=== PATIENT | male | born 2000 | race African-American/Black ===

== ENCOUNTER 2024-01-17 20:55 | Inpatient (IN) ==
[2024-01-17 23:07] LABS: Basophils # (auto) 0.02 K/uL (0.00-0.20); Basophils % (auto) 0.2 %; Eosinophils # (auto) 0.01 K/uL (0.00-0.50); Eosinophils % (auto) 0.1 %; Hematocrit (blood only) 23.1 % (42.0-52.0); Hemoglobin 7.7 g/dl (14.0-18.0); Immature Granulocytes # (auto) 0.13 K/uL (0.01-0.20); Immature Granulocytes % (auto) 1.2 %; Lymphocytes % (auto) 16.9 %; Mean Corpuscular Hemoglobin 22.8 pg (25.0-34.0); Mean Corpuscular Hgb Conc 33.3 g/dL (32.0-36.0); Mean Corpuscular Volume 68.3 fL (80.0-100.0); Monocytes # (auto) 0.55 K/uL (0.11-0.59); Monocytes % (auto) 5.2 %; Neutrophils # (auto) 8.14 K/uL (1.40-6.50); Neutrophils % (auto) 76.4 %; Nucleated RBC # (auto) 0.18 K/uL (0.00-0.12); Nucleated RBC % (auto) 1.7 %; RDW Coefficient of Variation 22.1 % (11.5-14.5); Red Blood Count 3.38 M/uL (4.70-6.10); White Blood Count 10.65 K/ul (4.8-10.8)
[2024-01-17 23:11] LABS: Platelet Count 475 K/uL (130-400)
[2024-01-17] MEDS ORDERED: ONDANSETRON INJ 2 MG/ML 2 ML VIAL IV STA (23:11)
[2024-01-17] MEDS ORDERED: HYDROmorphone INJ 0.5 MG/0.5 ML SYR IV STA (23:11)
[2024-01-17 23:24] LABS: Albumin Level 4.3 gm/dl (3.4-5.0); BUN Creatinine Ratio 21.6 (10-20); Bilirubin,Total 1.1 mg/dl (0.2-1.0); Calcium 9.5 mg/dl (8.6-10.3); Creatinine Clr Calc Pharmacy 122.8 ml/min; Est GFR (African American) 149.6 ml/min; Est GFR (Non-African American) 129.1 ml/min; Globulin 4.2 gm/dl (2.5-4.0); Potassium 3.7 mmol/L (3.5-5.1); Total Protein 8.5 gm/dl (6.0-8.3)
[2024-01-17] MEDS: ONDANSETRON INJ 2 MG/ML 2 ML VIAL IV SCH (23:30)
[2024-01-17] MEDS: HYDROmorphone INJ 0.5 MG/0.5 ML SYR IV SCH (23:30)
[2024-01-17 23:32] LABS: Anisocytosis Present; Microcytosis Present; Polychromasia 2+; Target Cells 2+
--- NOTE | 2024-01-17 23:32 | Emergency Department Note ---
History of Present Illness General Chief complaint: Leg Injury/Pain Stated complaint: SICKLE CELL CRISIS, NEEDS PAIN MEDS, LT LEG PAIN Time Seen by Provider: 01/17/24 23:12 History of Present Illness Maximum Pain Intensity: 10 This is a 23-year-old male presenting to the emergency department for evaluation of bilateral leg pain worse in the left leg. Patient reports that he has a history of sickle cell disease and feels that he is in sickle cell crisis. He typically follows with [facility] heme-onc and does have oxycodone to use at home when he enters crisis. Patient took 2 doses of his oxycodone, the first 1 this morning, and the last one around 3 PM. Despite the medication he still rates the pain a 10/10. He is not having any fevers or chills. No chest pain, chest tightness, shortness of breath. Patient does have treatment plan documentation from [facility] for fluids and every hour 1 mg Dilaudid. This feels similar to his previous sickle cell events. Home Medications Medication Instructions Recorded Confirmed Type acetaminophen 500 mg tablet 1,000 mg PO Q8H PRN Pain, Mild 01/18/24 01/18/24 History folic acid 1 mg tablet 1 mg PO DAILY 01/18/24 01/18/24 History hydroxyurea 500 mg capsule 500 mg PO UD 01/18/24 01/18/24 History ibuprofen 400 mg tablet 800 mg PO Q8H PRN Pain, Mild 01/18/24 01/18/24 History oxycodone 10 mg tablet 20 mg PO Q4H PRN Pain, Moderate 01/18/24 01/18/24 History Allergies Allergy/AdvReac Type Severity Reaction Status Date / Time fentanyl Allergy Intermediate Numbness Verified 01/18/24 04:45 Past Med/Surg History Medical History Sickle cell disease Surgical History No significant past surgical history Family History (Updated 01/18/24 @ 04:49 by Denita Villanueva DO) Other Sickle cell trait Social History (Updated 01/18/24 @ 04:49 by Denita Villanueva DO) Smoking Status: Never smoker Hx Alcohol Use: No Hx Substance Use: No Preferred Language: Estonian Feels Safe at Home: Yes Review of Systems A total of 10 systems reviewed and were otherwise negative Physical Exam Vital Signs Vital Signs - 24 hr 01/17/24 21:01 01/17/24 23:11 01/17/24 23:22 Temperature 36.6 C Temperature Source Temporal Artery Scan Pulse Rate 84 81 Pulse Rate [Apical] 84 Pulse Rhythm Regular Pulse Rhythm [Apical] Regular Pulse Strength Normal Pulse Strength [Apical] Normal Respiratory Rate 19 18 Respiratory Effort / Characteristics Non-Labored Spontaneous Non-Labored Spontaneous Respiratory Depth Normal Normal Respiratory Pattern Regular Regular Blood Pressure 109/71 Blood Pressure [Right Arm] 127/78 Blood Pressure Mean 83 Blood Pressure Mean [Right Arm] 94 Blood Pressure Position Sitting Blood Pressure Position [Right Arm] Lying Pulse Oximetry 100 100 Pulse Oximetry [Right Index Finger] Oxygen Delivery Method Room Air Room Air Oxygen Delivery Method [Right Index Finger] Sepsis Recent Fever Within 48 Hours No Sepsis New/Unexplained Change in Mental Status N/A Sepsis Action Taken by Nursing No Action Required 01/18/24 03:00 01/18/24 03:07 01/18/24 04:00 Temperature Temperature Source Pulse Rate 78 Pulse Rate [Apical] 78 73 Pulse Rhythm Pulse Rhythm [Apical] Regular Regular Pulse Strength Pulse Strength [Apical] Normal Normal Respiratory Rate 18 18 Respiratory Effort / Characteristics Non-Labored Spontaneous Non-Labored Spontaneous Respiratory Depth Normal Normal Respiratory Pattern Regular Regular Blood Pressure Blood Pressure [Right Arm] 134/75 134/79 Blood Pressure Mean Blood Pressure Mean [Right Arm] 94 97 Blood Pressure Position Blood Pressure Position [Right Arm] Lying Lying Pulse Oximetry 99 98 Pulse Oximetry [Right Index Finger] Oxygen Delivery Method Room Air Room Air Oxygen Delivery Method [Right Index Finger] Sepsis Recent Fever Within 48 Hours Sepsis New/Unexplained Change in Mental Status Sepsis Action Taken by Nursing 01/18/24 04:00 Temperature Temperature Source Pulse Rate Pulse Rate [Apical] Pulse Rhythm Pulse Rhythm [Apical] Pulse Strength Pulse Strength [Apical] Respiratory Rate Respiratory Effort / Characteristics Respiratory Depth Respiratory Pattern Blood Pressure Blood Pressure [Right Arm] Blood Pressure Mean Blood Pressure Mean [Right Arm] Blood Pressure Position Blood Pressure Position [Right Arm] Pulse Oximetry Pulse Oximetry [Right Index Finger] 98 Oxygen Delivery Method Oxygen Delivery Method [Right Index Finger] Room Air Sepsis Recent Fever Within 48 Hours Sepsis New/Unexplained Change in Mental Status Sepsis Action Taken by Nursing VITALS: Vitals are noted on the nurse's note and reviewed by myself. Vital signs stable. GENERAL: Well-developed, well-nourished, black male, who is in moderate discomfort but overall cooperative. HEAD: Normocephalic atraumatic. EARS: External ear normal. External auditory canals clear, tympanic membranes pearly dawn without erythema or effusion bilaterally. EYES: Pupils equal round and reactive to light and accommodation. Conjunctivae without injection, sclerae without icterus. Extraocular movements intact. NOSE: Patent, turbinates without inflammation or discharge. MOUTH: Mucous membranes moist. Tonsils are not enlarged. Pharynx without erythema, blood, or exudate. Uvula midline. Airway patent. NECK: Supple without nuchal rigidity. No lymphadenopathy. No thyromegaly. Cervical spine is nontender. HEART: Regular rate and rhythm without murmurs gallops or rubs. LUNGS: Clear to auscultation bilaterally without wheezes, rales or rhonchi. No retractions or accessory muscle use. ABDOMEN: Positive normal bowel sounds x 4. Soft, nontender, without masses or organomegaly. No guarding or rebound tenderness. MUSCULOSKELETAL: No muscle atrophy, erythema, or edema noted. Full range of motion in all extremities. Course Administered Medications Discontinued Medications Hydromorphone HCl (Hydromorphone Inj 0.5 Mg/0.5 Ml Syr) 0.5 mg IV NOW STA Stop: 01/17/24 23:19 Last Admin: 01/18/24 00:48 Dose: 0.5 mg Documented By: MATEUSZ Hydromorphone HCl (Hydromorphone Inj 1 Mg/Ml Syringe) 1 mg IV NOW Stop: 01/18/24 01:26 Last Admin: 01/18/24 01:50 Dose: 1 mg Documented By: IDD Hydromorphone HCl (Hydromorphone Inj 0.5 Mg/0.5 Ml Syr) 0.5 mg IV 2311 [facility] Stop: 01/18/24 02:15 Last Admin: 01/17/24 23:30 Dose: 0.5 mg Documented By: IDD Hydromorphone HCl (Hydromorphone Inj 2 Mg/Ml Syr/Vial) Confirm Administered Dose 2 mg .ROUTE .STK-MED ONE Stop: 01/18/24 04:41 Last Admin: 01/18/24 04:43 Dose: Not Given Documented By: IDD Sodium Chloride (Nss) 1,000 mls @ 999 mls/hr IV .Q1H1M [facility] Stop: 01/18/24 00:15 Last Infusion: 01/18/24 01:20 Dose: Infused Documented By: Admin: 01/18/24 00:18 Dose: 999 mls/hr Documented By: MATEUSZ Miscellaneous Information (Patient's Allergy Info Needs Entered) 1 each N/A NOW ONE Stop: 01/18/24 02:16 Last Admin: 01/18/24 04:34 Dose: 1 each Documented By: IDD Ondansetron HCl (Ondansetron Inj 2 Mg/Ml 2 Ml Vial) 4 mg IV 2311 [facility] Stop: 01/18/24 02:15 Last Admin: 01/17/24 23:30 Dose: 4 mg Documented By: MATEUSZ Medical Decision Making Differential Diagnosis Differential diagnosis includes, but is not limited to: Sickle cell crisis, infection, dehydration, myocardial infarction, dysrhythmia, pericarditis, pneumothorax, aortic aneurysm/dissection, DVT/PE, anxiety, GERD, PUD, electrolyte imbalance, thyroid disorder, pneumonia, bronchitis, pancreatitis, and others Laboratory Data 01/17/24 22:45 01/17/24 22:45 Lab Results 01/17/24 Range/Units 22:45 WBC 10.65 (4.8-10.8) K/ul RBC 3.38 L (4.70-6.10) M/uL Hgb 7.7 L (14.0-18.0) g/dl Hct 23.1 L (42.0-52.0) % MCV 68.3 L (80.0-100.0) fL MCH 22.8 L (25.0-34.0) pg MCHC 33.3 (32.0-36.0) g/dL RDW Std Deviation 51.0 H (36.4-46.3) fL RDW Coeff of Luis Alfredo 22.1 H (11.5-14.5) % Plt Count 475 H (130-400) K/uL MPV 9.0 L (9.4-12.4) fL Immature Gran % (Auto) 1.2 % Neut % (Auto) 76.4 % Lymph % (Auto) 16.9 % [place] % (Auto) 5.2 % Eos % (Auto) 0.1 % Baso % (Auto) 0.2 % Reticulocyte % (Auto) 7.27 H (0.50-2.00) % Neut # (Auto) 8.14 H (1.40-6.50) K/uL Lymph # (Auto) 1.80 (1.20-3.40) K/uL [place] # (Auto) 0.55 (0.11-0.59) K/uL Eos # (Auto) 0.01 (0.00-0.50) K/uL Baso # (Auto) 0.02 (0.00-0.20) K/uL Reticulocyte # 0.250 H (0.020-0.100) 10^6/uL Immature Gran # (Auto) 0.13 (0.01-0.20) K/uL Absolute Nucleated RBC 0.18 H (0.00-0.12) K/uL Nucleated RBC % (auto) 1.7 % Polychromasia 2+ Anisocytosis Present Microcytosis Present Target Cells 2+ Sodium 134 L (136-145) mmol/L Potassium 3.7 (3.5-5.1) mmol/L Chloride 100 (98-107) mmol/L Carbon Dioxide 25 (21-32) mmol/L Anion Gap 9 (3-11) BUN 16 (6-23) mg/dl Creatinine 0.74 (0.6-1.4) mg/dl Est Cr Clr Drug Dosing 122.8 ml/min Est GFR ( Amer) 149.6 ml/min Est GFR (Non-Af Amer) 129.1 ml/min BUN/Creatinine Ratio 21.6 H (10-20) Glucose 105 H (70-99(Fasting)) mg/dl Calcium 9.5 (8.6-10.3) mg/dl Total Bilirubin 1.1 H (0.2-1.0) mg/dl AST 37 (13-39) U/L ALT 22 (7-52) U/L Alkaline Phosphatase 86 (34-104) U/L Troponin I High Sens 2.9 (0-20) pg/ml Total Protein 8.5 H (6.0-8.3) gm/dl Albumin 4.3 (3.4-5.0) gm/dl Globulin 4.2 H (2.5-4.0) gm/dl Albumin/Globulin Ratio 1.0 (0.9-2) MDM Narrative Physical exam and history were performed. Nursing notes, EMR, and Medication List were personally reviewed. No social concerns were identified as barriers to patients care. Patient appears to have concern for sickle cell crisis. Patient has had this in the past and follows with [place] [facility] oncology. IV access was established and labs were obtained. Patient was hydrated with normal saline and treated per his specialist recommendation. He was given 1 mg IV Dilaudid. Patient's blood work is as above and was reviewed. He is anemic with an elevated reticulocyte count. He does not seem to have ACS on EKG or by labs. Transaminases are not diagnostic. Patient required multiple doses of pain medication here in the ER. He has taken his home regiment of opioids as well without relief. Overall the patient does not appear well for discharge home. Patient was discussed with the on-call hospitalist team who agreed to evaluate him here in the ER. Please see their dictation for further patient course, plan, disposition. The chart was completed utilizing [employer] Voice Recognition Software. Grammatical errors, random word insertions, pronoun errors, and incomplete sentences are an occasional consequence of this system due to software limitations, ambient noise, and hardware issues. Any formal questions or concerns about the content, text, or information contained within the body of this dictation should be directly addressed to the provider for clarification. . Impression & Plan Sickle cell disease Discharge Plan Visit Data Chief Complaint: Leg Injury/Pain Stated Complaint: SICKLE CELL CRISIS, NEEDS PAIN MEDS, LT LEG PAIN ED Provider: Garry Vaz ED Midlevel Provider: Judd Wells Discharge Problem: Sickle cell disease Discharge Instructions Interventions: ED Discharge Assessment Last Done: 01/18/24 04:56
[2024-01-18] MEDS: SODIUM CHLORIDE 0.9% 1,000 ML IV SCH (00:18)
[2024-01-18] MEDS: HYDROmorphone INJ 0.5 MG/0.5 ML SYR IV STA (00:48)
[2024-01-18 01:03] LABS: Reticulocyte % 7.27 % (0.50-2.00); Reticulocytes # 0.25 10^6/uL (0.020-0.100)
[2024-01-18 01:29] LABS: Troponin I High Sensitivity 2.9 pg/ml (0-20)
[2024-01-18] MEDS: HYDROmorphone INJ 1 MG/ML SYRINGE IV STA (01:50)
[2024-01-18] MEDS ORDERED: Patient's ALLERGY Info needs ENTERED STA (04:30)
--- NOTE | 2024-01-18 04:31 | History & Physical Report ---
Date of Service January 18, 2024 Assessment & Plan (1) Sickle cell disease: Plan: 23yo male with sickle cell disease presenting with acute pain crisis. Patient with pain in the left thigh. No evidence of infection or acute chest syndrome. Patient with microcytic/hypochromic anemia with Hgb=7.7, Hct=23.1, MCV=68.3 and MCH=22.8 (no prior baseline values), elevated reticulocyte count to 7.27%. Patient has received very little pain relief with the therapies administered thus far (Dilaudid 0.5 + 0.5 + 1mg). -Admit to medical -Continue supplemental O2 for comfort - no hypoxia noted -1/2 NSS at 80mL/hr x 2L -Continue hydroxyurea at home dose - patient takes 100mg po on days 1 and 2 and 500mg po on day 3 then repeats the cycle -Continue Folic Acid -Pain control with Tylenol 1gm PO TID PRN mild pain -Oxycodone 20mg po q 4 hours as needed for moderate pain -Dilaudid 1mg IV q 2 hours as needed for mild pain (3, 4, 5) -Dilaudid 1.5mg IV q 2 hours as needed for severe pain (6-10) -Narcan available for oversedation or respiratory depression -Bowel regimen with Miralax and Colace PRN -Continuous pulse oximeter F/E/N - 1/2 NSS at 80mL/hr x 2L, electrolytes WNL, Regular diet as tolerated PPx - low risk for DVT Code - Full per discussion with patient Dispo - Admit to medical floor for ongoing pain management History of Present Illness Chief Complaint: sickle cell pain crisis Primary Care Provider: Willi Cortezan-paul is a pleasant 23yo male with history of sickle cell disease presenting with acute pain crisis. Patient's pain began suddenly in his left thigh at 15:00 on 01/17/24. He took Oxycodone 20mg and Tylenol 1gm at home prior to arrival with some improvement. However, his pain persisted therefore he came to the ER. Patient denies fever, chills, cough, chest pain or shortness of breath. No abdominal pain, nausea or vomiting. His current pain is typical for his sickle cell crises. Patient has had acute chest syndrome in the past, last time thought to be in 2021. In the ER he is afebrile, HD stable. ER Course: Dilaudid 0.5mg IV x 2doses + 1mg + 2mg NSS x 1L Zofran 4mg IV Allergies Allergy/AdvReac Type Severity Reaction Status Date / Time fentanyl Allergy Intermediate Numbness Verified 01/18/24 04:45 Home Medications Medication Instructions Recorded Confirmed Type acetaminophen 500 mg tablet 1,000 mg PO Q8H PRN Pain, Mild 01/18/24 01/18/24 History folic acid 1 mg tablet 1 mg PO DAILY 01/18/24 01/18/24 History hydroxyurea 500 mg capsule 500 mg PO UD 01/18/24 01/18/24 History ibuprofen 400 mg tablet 800 mg PO Q8H PRN Pain, Mild 01/18/24 01/18/24 History oxycodone 10 mg tablet 20 mg PO Q4H PRN Pain, Moderate 01/18/24 01/18/24 History Past Med/Surg History Medical History Sickle cell disease Surgical History No significant past surgical history Family History (Updated 01/18/24 @ 04:49 by Denita Villanueva DO) Other Sickle cell trait Social History (Updated 01/18/24 @ 04:49 by Denita Villanueva DO) Smoking Status: Never smoker Hx Alcohol Use: No Hx Substance Use: No Preferred Language: Serbian Feels Safe at Home: Yes Review of Systems Review of Systems: All systems reviewed & are unremarkable except as noted in HPI & below Physical Exam Physical Exam: General: patient in mild distress secondary to pain, non-toxic in appearance, AA&O x 4 Skin: warm, dry, intact, no rashes or lesions HEENT: NC/AT, PERRL, EOMI, anicteric sclera, conjunctiva without injection, external ear normal to inspection and nontender, nares patent, moist mucus membranes, dentition intact, no oropharyngeal lesions, neck supple, trachea midline, no LAD, no thyromegaly, no JVD Heart: +S1/S2, regular, no m/r/g Lungs: equal air entry bilaterally, no rales/rhonchi/wheezes Abd: +BS, soft, NT/ND, no masses/organomegaly/ascites Ext: warm, 2+ pulses in UE/LE bilaterally, no clubbing/cyanosis or edema Neuro: nonfocal, patient AA&O x 4, speech intact, no facial droop, moving all extremities on command with equal strength 5/5 Results & Data Results & Data Vital Signs (Past 12 Hours) Vital Signs Temp Pulse Pulse Resp BP BP Pulse Ox 01/18/24 03:07 78 01/18/24 03:00 78 18 134/75 99 01/17/24 23:22 84 18 127/78 100 01/17/24 23:11 81 01/17/24 21:01 36.6 C 84 19 109/71 100 O2 Del Method 01/18/24 03:07 01/18/24 03:00 Room Air 01/17/24 23:22 Room Air 01/17/24 23:11 01/17/24 21:01 Room Air Laboratory Results Laboratory Results WBC 10.65 K/ul (4.8-10.8) 01/17/24 22:45 RBC 3.38 M/uL (4.70-6.10) L 01/17/24 22:45 Hgb 7.7 g/dl (14.0-18.0) L 01/17/24 22:45 Hct 23.1 % (42.0-52.0) L 01/17/24 22:45 MCV 68.3 fL (80.0-100.0) L 01/17/24 22:45 MCH 22.8 pg (25.0-34.0) L 01/17/24 22:45 MCHC 33.3 g/dL (32.0-36.0) 01/17/24 22:45 RDW Std Deviation 51.0 fL (36.4-46.3) H 01/17/24 22:45 RDW Coeff of Luis Alfredo 22.1 % (11.5-14.5) H 01/17/24 22:45 Plt Count 475 K/uL (130-400) H 01/17/24 22:45 MPV 9.0 fL (9.4-12.4) L 01/17/24 22:45 Immature Gran % (Auto) 1.2 % 01/17/24 22:45 Neut % (Auto) 76.4 % 01/17/24 22:45 Lymph % (Auto) 16.9 % 01/17/24 22:45 [place] % (Auto) 5.2 % 01/17/24 22:45 Eos % (Auto) 0.1 % 01/17/24 22:45 Baso % (Auto) 0.2 % 01/17/24 22:45 Reticulocyte % (Auto) 7.27 % (0.50-2.00) H 01/17/24 22:45 Neut # (Auto) 8.14 K/uL (1.40-6.50) H 01/17/24 22:45 Lymph # (Auto) 1.80 K/uL (1.20-3.40) 01/17/24 22:45 [place] # (Auto) 0.55 K/uL (0.11-0.59) 01/17/24 22:45 Eos # (Auto) 0.01 K/uL (0.00-0.50) 01/17/24 22:45 Baso # (Auto) 0.02 K/uL (0.00-0.20) 01/17/24 22:45 Reticulocyte # 0.250 10^6/uL (0.020-0.100) H 01/17/24 22:45 Immature Gran # (Auto) 0.13 K/uL (0.01-0.20) 01/17/24 22:45 Absolute Nucleated RBC 0.18 K/uL (0.00-0.12) H 01/17/24 22:45 Nucleated RBC % (auto) 1.7 % 01/17/24 22:45 Polychromasia 2+ 01/17/24 22:45 Anisocytosis Present 01/17/24 22:45 Microcytosis Present 01/17/24 22:45 Target Cells 2+ 01/17/24 22:45 Sodium 134 mmol/L (136-145) L 01/17/24 22:45 Potassium 3.7 mmol/L (3.5-5.1) 01/17/24 22:45 Chloride 100 mmol/L (98-107) 01/17/24 22:45 Carbon Dioxide 25 mmol/L (21-32) 01/17/24 22:45 Anion Gap 9 (3-11) 01/17/24 22:45 BUN 16 mg/dl (6-23) 01/17/24 22:45 Creatinine 0.74 mg/dl (0.6-1.4) 01/17/24 22:45 Est Cr Clr Drug Dosing 122.8 ml/min 01/17/24 22:45 Est GFR ( Amer) 149.6 ml/min 01/17/24 22:45 Est GFR (Non-Af Amer) 129.1 ml/min 01/17/24 22:45 BUN/Creatinine Ratio 21.6 (10-20) H 01/17/24 22:45 Glucose 105 mg/dl (70-99(Fasting)) H 01/17/24 22:45 Calcium 9.5 mg/dl (8.6-10.3) 01/17/24 22:45 Total Bilirubin 1.1 mg/dl (0.2-1.0) H 01/17/24 22:45 AST 37 U/L (13-39) 01/17/24 22:45 ALT 22 U/L (7-52) 01/17/24 22:45 Alkaline Phosphatase 86 U/L (34-104) 01/17/24 22:45 Troponin I High Sens 2.9 pg/ml (0-20) 01/17/24 22:45 Total Protein 8.5 gm/dl (6.0-8.3) H 01/17/24 22:45 Albumin 4.3 gm/dl (3.4-5.0) 01/17/24 22:45 Globulin 4.2 gm/dl (2.5-4.0) H 01/17/24 22:45 Albumin/Globulin Ratio 1.0 (0.9-2) 01/17/24 22:45 Diagnostic Findings CXR - per my interpretation, normal cardiac shadow, no infiltrates, edema or pneumothorax Medications Administered Discontinued Medications Hydromorphone HCl (Hydromorphone Inj 0.5 Mg/0.5 Ml Syr) 0.5 mg IV NOW STA Stop: 01/17/24 23:19 Last Admin: 01/18/24 00:48 Dose: 0.5 mg Documented By: IDD Hydromorphone HCl (Hydromorphone Inj 1 Mg/Ml Syringe) 1 mg IV NOW STA Stop: 01/18/24 01:26 Last Admin: 01/18/24 01:50 Dose: 1 mg Documented By: IDD Hydromorphone HCl (Hydromorphone Inj 0.5 Mg/0.5 Ml Syr) 0.5 mg IV 2311 [facility] Stop: 01/18/24 02:15 Last Admin: 01/17/24 23:30 Dose: 0.5 mg Documented By: IDD Hydromorphone HCl (Hydromorphone Inj 2 Mg/Ml Syr/Vial) Confirm Administered Dose 2 mg .ROUTE .STK-MED ONE Stop: 01/18/24 04:41 Last Admin: 01/18/24 04:43 Dose: Not Given Documented By: IDD Sodium Chloride (Nss) 1,000 mls @ 999 mls/hr IV .Q1H1M [facility] Stop: 01/18/24 00:15 Last Infusion: 01/18/24 01:20 Dose: Infused Documented By: Admin: 01/18/24 00:18 Dose: 999 mls/hr Documented By: MATEUSZ Miscellaneous Information (Patient's Allergy Info Needs Entered) 1 each N/A NOW ONE Stop: 01/18/24 02:16 Last Admin: 01/18/24 04:34 Dose: 1 each Documented By: IDD Ondansetron HCl (Ondansetron Inj 2 Mg/Ml 2 Ml Vial) 4 mg IV 2311 [facility] Stop: 01/18/24 02:15 Last Admin: 01/17/24 23:30 Dose: 4 mg Documented By: IDTiffany ECG Additional Comments: EKG with NSR at 77bpm, normal axis, DS=756, QRS=80, QPn=790, no acute ischemic changes PG Care Time/CCT Total # of Minutes Spent Total Time Spent with Patient: Total time spent is greater than 50% in coordination of care (as documented) at patient's floor/unit and/or counseling patient: Coding Level of Care Code 87134 INT INP/OBS CARE 2/55MIN Diagnoses Sickle cell disease D57.1
[2024-01-18] MEDS: Patient's ALLERGY Info needs ENTERED ONE (04:34)
[2024-01-18] MEDS: HYDROmorphone INJ 2 MG/ML SYR/VIAL IV STA (04:40)
[2024-01-18] MEDS: HYDROmorphone INJ 2 MG/ML SYR/VIAL ONE (04:43)
[2024-01-18] MEDS ORDERED: HYDROmorphone INJ 1 MG/ML SYRINGE IV PRN (04:55)
[2024-01-18] MEDS ORDERED: ACETAMINOPHEN 500 MG TAB PO PRN (04:56)
[2024-01-18] MEDS ORDERED: oxyCODONE HCL IR 5 MG TAB (IMMEDIATE RELEASE) PO PRN (04:56)
[2024-01-18] MEDS ORDERED: HYDROmorphone INJ 0.5 MG/0.5 ML SYR IV PRN (04:56)
[2024-01-18] MEDS ORDERED: ONDANSETRON INJ 2 MG/ML 2 ML VIAL IV PRN (04:56)
[2024-01-18] MEDS ORDERED: NALOXONE HCL 0.4 MG/1 ML VIAL/CARP IV PRN (05:04)
[2024-01-18] MEDS: HYDROmorphone INJ 1 MG/ML SYRINGE IV PRN (06:11)
[2024-01-18] MEDS: SODIUM CHLORIDE 0.45 % 1,000 ML IV SCH (06:13)
--- NOTE | 2024-01-18 07:27 | XRay Report ---
XR chest 1V not portable HISTORY: 23 years-old Male illness acute shortness of breath COMPARISON: None TECHNIQUE: PA view of the chest FINDINGS: Cardiomediastinal and hilar silhouettes are within normal limits. No pneumothorax, pleural effusion, airspace consolidation or pulmonary edema. Bones of the chest appear grossly intact. IMPRESSION: Normal exam. ACT 112: Negative or not required by law. The above report was generated using voice recognition software. It may contain grammatical, syntax o r spelling errors. Electronically signed by: Johnnie Bergeron M.D. 01/18/2024 7:26 AM
[2024-01-18] MEDS: FOLIC ACID 1 MG TAB PO SCH (09:10)
[2024-01-18] MEDS: HYDROXYUREA 500 MG CAP PO SCH (09:10)
--- OUTSIDE RECORDS SUMMARY | 2024-01-18 09:33 | External Medical Summary | Continuity of Care Document ---
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 Name Role Phone Kvng Willi Tennille Primary Care Physician [phone] Encounter [facility] [id number] Date(s): 01/08/24 - 01/13/[address] [phone] [phone] Encounter Diagnosis Acute chest syndrome(Discharge Diagnosis) - 01/09/24 Sepsis(Discharge Diagnosis) - 01/13/24 Lower extremity pain, right(Discharge Diagnosis) - 01/11/24 Sickle cell anemia(Discharge Diagnosis) - 01/09/24 Osteomyelitis hip(Discharge Diagnosis) - 01/13/24 Abscess(Discharge Diagnosis) - 01/13/24 Pneumonia(Discharge Diagnosis) - 01/09/24 Discharge Disposition: Home or Self Care Attending Physician: MD Joseph Megan Admitting Physician: MD Gómez, Zach Montelongo Allergies, Adverse Reactions, Alerts Substance Reaction Severity Status fentaNYL Numbness Moderate Active Functional Status 01/13/24 Neurological Symptoms None ADLs Independent Facial Symmetry Symmetric Gait Steady Swallowing Difficulty None Level of Consciousness Neuro Alert Hallucinations Present None History of Fall in Last 3 Months Barba N o Presence of Secondary Diagnosis Barba Ye s Use of Ambulatory Aid Barba None/bedrest /nurse assist IV/Heparin Lock Fall Risk Barba Yes Gait/Transferring Fall Risk Barba Normal /bedrest/immobile Mental Status Fall Risk Barba Oriented t o own ability Barba Fall Risk Score 35 Barba Fall Risk Low Risk Speech Pattern Clear Immunizations Given and Recorded Vaccine Date Status Refusal Reason pneumococcal 23-valent vaccine 06/01/23 Given pneumococcal 23-valent vaccine 03/05/15 Given influenza virus vaccine, inactivated 11/06/19 Give n influenza virus vaccine, inactivated 12/18/16 Give n influenza virus vaccine, inactivated 08/24/13 Xander rded influenza virus vaccine, inactivated 09/04/02 Xander rded meningococcal group B vaccine 02/24/17 Recorded meningococcal group B vaccine 1 12/18/16 Given pneumococcal 13-valent vaccine 2 06/05/16 Given meningococcal conjugate vaccine 03/05/15 Given meningococcal conjugate vaccine 05/07/10 Recorded hepatitis A pediatric vaccine 05/27/12 Recorded hepatitis A pediatric vaccine 03/24/10 Recorded tetanus/diphtheria/pertuss, acel (Tdap) 05/07/10 R ecorded varicella virus vaccine 12/03/06 Recorded varicella virus vaccine 06/04/00 Recorded poliovirus vaccine, inactivated 01/03/04 Recorded poliovirus vaccine, inactivated 09/14/00 Recorded poliovirus vaccine, inactivated 99 Recorded poliovirus vaccine, inactivated 99 Recorded measles/mumps/rubella virus vaccine 12/05/03 Recor ded measles/mumps/rubella virus vaccine 06/04/00 Recor ded diphtheria/tetanus/pertuss, acel (DTaP) 09/14/00 R ecorded diphtheria/tetanus/pertuss, acel (DTaP) 02/20/00 R ecorded diphtheria/tetanus/pertuss, acel (DTaP) 99 R ecorded diphtheria/tetanus/pertuss, acel (DTaP) 99 R ecorded 1Early/Late Reason: Other : order placed prior to patient arrival 2Early/Late Reason: Other : ORDERED ENTERED AT TIME OF VISIT Medications acetaminophen 500 mg oral tablet Start: 09/05/23 12:07:00 EST, 2 tab, PO, q8h, Disp# 50 tab, PRN: fever/mild pain (1-3), Pharmacy: [facility]/pharmacy #[id number] Start Date: 09/05/23 Status: Ordered celecoxib 100 mg oral capsule Start: 08/09/23 12:48:00 EDT, 1 cap, PO, bid, Disp# 60 cap, Refills: 1, Pharmacy: [facility] ST[id number] Start Date: 08/09/23 Status: Ordered hydroxyurea 500 mg oral capsule Start: 01/14/24 17:20:00 EDT, See Instructions, Disp# 180 cap, Refills: 4, on day 1 1000mg PO daily, day 2 1000mgPO daily , day 3 500 Mg PO daily then repeat OR as instructed by provider, [id number] Start Date: 01/14/24 Status: Ordered ibuprofen 400 mg oral tablet Start: 02/11/23 13:49:00 EDT, 2 tab, PO, q8h, Disp# 180 tab, Refills: 1, PRN: pain - mild (1-3), Pharmacy: [facility]/pharmacy #[id number] Start Date: 02/11/23 Status: Ordered levoFLOXacin 750 mg oral tablet Start: 01/13/24 16:11:00 EDT, 1 tab, PO, q24h, Disp# 42, Refills: 0, Take once tab, once a day, Pharmacy: [facility] Start Date: 01/13/24 Stop Date: 02/24/24 Status: Ordered naloxone 4 mg/0.1 mL nasal spray Start: 02/11/23 13:49:00 EDT, 4 mg =, intranasal, ONCE, Disp# 2 each, Note to Pharmacy: Use for overdose of opiates or not breathing., [id number] Start Date: 02/11/23 Status: Ordered oxyCODONE 20 mg oral tablet Start: 01/13/24 17:12:00 EDT, 1 tab, PO, q4h, Disp# 28 tab, Refills: 0, Take one tab for pain, every four hours as needed, PRN: Pain, Pharmacy: [facility] Start Date: 01/13/24 Stop Date: 01/20/24 Status: Ordered Mental Status 01/09/24 Communication Barrier Present No Primary Language Hebrew Problem List Condition Confirmation Course Effective Dates Status Health St atus Informant Chest pain Confirmed Active Headache Confirmed Active 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 Trigeminal neuralgia Confirmed Active Diagnosis Diagnosis Type Effective Dates Health Status Clinical Service Informant Acute chest syndrome Discharge Diagnosis 01/09/24 Non-Specified Sickle cell anemia Discharge Diagnosis 01/09/24 Non-Specified Pneumonia Discharge Diagnosis 01/09/24 Non-Specified Lower extremity pain, right Discharge Diagnosis 01/11/24 Non-Specified Sepsis Discharge Diagnosis 01/13/24 Non-Specified Osteomyelitis hip Discharge Diagnosis 01/13/24 Non-Specified Abscess Discharge Diagnosis 01/13/24 Non-Specified Procedures Procedure Date Related Diagnosis Body Site Status Biopsy Completed None Completed Results Laboratory List Name Date Comprehensive Metabolic Panel (CMP) Complete Blood Count (CBC w Platelets) Erythrocyte Sedimentation Rate (ESR) 01/11 C Reactive Protein, Quantitation (CRP, Q uantitation) 01/12/24 Complete Blood Count w Differential (CBC w Platelets and Diff) 01/12/24 Comprehensive Metabolic Panel (CMP) Magnesium Level 01/12/24 Phosphorus Level 01/12/24 Comprehensive Metabolic Panel (CMP) Magnesium Level 01/11/24 Phosphorus Level 01/11/24 Added on Lab order 01/10/24 C Reactive Protein, Quantitation (CRP QU ANTITATION) 01/10/24 Erythrocyte Sedimentation Rate (SEDIMENT ATION RATE) 01/10/24 Magnesium Level 01/10/24 Phosphorus Level 01/10/24 Complete Blood Count (CBC w Platelets) Hemoglobin Electrophoresis 01/09/24 Sickle Cell Screen (SICKLE CELL SCREEN) 01/09/24 MRSA Surveillance (Nasal Swab) 01/09/24 Urine Analysis w/ Reflexed Microscopic. (Urinalysis w/ Reflexed Microscopic.) 01/09/24 Lactic Acid Level 01/09/24 Added on Lab order 01/09/24 Hemoglobin S. (HEMOGLOBIN, S) 01/09/24 Complete Blood Count w Differential (CBC w Platelets and Diff) 01/09/24 Blood Type/Antibody Screen ( for possible transfusion) (Type and Screen (for possible transfusion)) 01/09/24 C Reactive Protein, Quantitation (CRP, Q uantitation) 01/09/24 Erythrocyte Sedimentation Rate (ESR) 12/11 11/03 Reticulocyte Panel 01/09/24 Most recent to oldest [Reference Range]: 1 2 3 ABO/Rh O POSITIVE (01/09/24 2:20 AM) Antibody Scr POSITIVE (01/09/24 2:20 AM) Antibody ID No Apparent Blood Group Specificity, (01/09/24 2:20 AM) Expires at 0600AM on 01/12/2024 (01/09/24 2:20 AM) # Units 0 (01/09/24 2:20 AM) R Number NRQ (01/09/24 2:20 AM) CReacProt [<0.50 mg/dL] 8.84 mg/dL *HI* (01/12/24 1:17 PM) 11.07 mg/dL *HI* (01/10/24 8:51 AM) 14.47 mg/dL *HI* (01/09/24 2:15 AM) eGFR CKD-EPI [>60 mL/min/1.73 m2] >90 mL/min/1.73 m2 (01/13/24 7:42 AM) CANCELLED BY MD/NURSING UNIT mL/min/1.73 m2 1 (01/12/24 5:00 AM) >90 mL/min/1.73 m2 (01/11/24 7:20 AM) Request of Physician ESR CRP (01/10/24 8:52 AM) Hemoglobin S percentage (01/09/24 2:16 AM) Action Taken YES (01/10/24 8:52 AM) YES (01/09/24 2:16 AM) Imm. Retics [5.0-25.0 %] 45.3 % *HI* (01/09/24 2:15 AM) Estimated CrCl 117.05 mL/min (01/13/24 9:08 AM) 109.16 mL/min (01/11/24 9:28 AM) 140.80 mL/min (01/10/24 11:42 AM) Retic Hgb [30.8-36.6 pg] 22.5 pg *LOW* (01/09/24 2:15 AM) MPV [9.0-12.2 fL] 9.5 fL (01/13/24 7:42 AM) 9.5 fL (01/12/24 1:17 PM) 10.5 fL (01/10/24 8:51 AM) Immature Gran% 0.8 % (01/12/24 1:17 PM) 0.8 % (01/09/24 2:15 AM) Neut% 65.6 % (01/12/24 1:17 PM) 65.0 % (01/09/24 2:15 AM) Lymph% 21.4 % (01/12/24 1:17 PM) 21.7 % (01/09/24 2:15 AM) [place]% 10.4 % (01/12/24 1:17 PM) 12.0 % (01/09/24 2:15 AM) Baso% 0.3 % (01/12/24 1:17 PM) 0.3 % (01/09/24 2:15 AM) Eos% 1.5 % (01/12/24 1:17 PM) 0.2 % (01/09/24 2:15 AM) Immat Gran, Abs [0-0.4 K/uL] 0.08 K/uL (01/12/24 1:17 PM) 0.11 K/uL (01/09/24 2:15 AM) Neut, Abs [2.0-7.7 K/uL] 6.39 K/uL (01/12/24 1:17 PM) 8.59 K/uL *HI* (01/09/24 2:15 AM) Lymph, Abs [1.0-3.4 K/uL] 2.09 K/uL (01/12/24 1:17 PM) 2.86 K/uL (01/09/24 2:15 AM) [place], Abs [0-1.0 K/uL] 1.01 K/uL *HI* (01/12/24 1:17 PM) 1.58 K/uL *HI* (01/09/24 2:15 AM) Baso, Abs [0-0.1 K/uL] 0.03 K/uL (01/12/24 1:17 PM) 0.04 K/uL (01/09/24 2:15 AM) Eos, Abs [0-0.5 K/uL] 0.15 K/uL (01/12/24 1:17 PM) 0.03 K/uL (01/09/24 2:15 AM) Type of Diff: AUTO (01/12/24 1:17 PM) AUTO (01/09/24 2:15 AM) RDW [11.5-14.2 %] 21.6 % *HI* (01/13/24 7:42 AM) 21.3 % *HI* (01/12/24 1:17 PM) 21.2 % *HI* (01/10/24 8:51 AM) Component RED CELLS (01/09/24 2:20 AM) MRSA Surveillance, on Admission [MSND] MRSA NOT detected (01/09/24 6:09 AM) Anion Gap [5-14 mmol/L] 12 mmol/L (01/13/24 7:42 AM) CANCELLED BY MD/NURSING UNIT mmol/L 2 (01/12/24 5:00 AM) 13 mmol/L (01/11/24 7:20 AM) Alb [3.5-5.2 g/dL] 4.0 g/dL (01/13/24 7:42 AM) CANCELLED BY MD/NURSING UNIT g/dL 3 (01/12/24 5:00 AM) 4.0 g/dL (01/11/24 7:20 AM) Alk Phos [40-130 unit/L] 102 unit/L 4 (01/13/24 7:42 AM) CANCELLED BY MD/NURSING UNIT unit/L 5 (01/12/24 5:00 AM) 105 unit/L 6 (01/11/24 7:20 AM) ALT [0-41 unit/L] 35 unit/L (01/13/24 7:42 AM) CANCELLED BY MD/NURSING UNIT unit/L 7 (01/12/24 5:00 AM) 35 unit/L (01/11/24 7:20 AM) AST [0-40 unit/L] 36 unit/L (01/13/24 7:42 AM) CANCELLED BY MD/NURSING UNIT unit/L 8 (01/12/24 5:00 AM) 38 unit/L (01/11/24 7:20 AM) Bili (u) [NEG] NEGATIVE (01/09/24 3:24 AM) BUN [6-23 mg/dL] 18 mg/dL (01/13/24 7:42 AM) CANCELLED BY MD/NURSING UNIT mg/dL 9 (01/12/24 5:00 AM) 14 mg/dL (01/11/24 7:20 AM) Ca [8.4-10.2 mg/dL] 10.0 mg/dL (01/13/24 7:42 AM) CANCELLED BY MD/NURSING UNIT mg/dL 10 (01/12/24 5:00 AM) 10.0 mg/dL (01/11/24 7:20 AM) Cl- [98-107 mmol/L] 100 mmol/L (01/13/24 7:42 AM) CANCELLED BY MD/NURSING UNIT mmol/L 11 (01/12/24 5:00 AM) 99 mmol/L (01/11/24 7:20 AM) HCO3 [22-29 mmol/L] 26 mmol/L (01/13/24 7:42 AM) CANCELLED BY MD/NURSING UNIT mmol/L 12 (01/12/24 5:00 AM) 27 mmol/L (01/11/24 7:20 AM) Cret [0.70-1.30 mg/dL] 0.83 mg/dL (01/13/24 7:42 AM) CANCELLED BY MD/NURSING UNIT mg/dL 13 (01/12/24 5:00 AM) 0.89 mg/dL (01/11/24 7:20 AM) ESR [0-15 mm/hr] 72 mm/hr *HI* (01/12/24 1:17 PM) 68 mm/hr *HI* (01/10/24 8:51 AM) 67 mm/hr *HI* (01/09/24 2:15 AM) Glu [74-109 mg/dL] 74 mg/dL 14 (01/13/24 7:42 AM) CANCELLED BY MD/NURSING UNIT mg/dL 15 (01/12/24 5:00 AM) 102 mg/dL 16 (01/11/24 7:20 AM) Hb A2 [2.2-3.2 %] 3.0 % (01/09/24 4:44 PM) Hct [39-48 %] 29.1 % *LOW* (01/13/24 7:42 AM) 29.2 % *LOW* (01/12/24 1:17 PM) 27.0 % *LOW* (01/10/24 8:51 AM) Hgb [13.0-17.0 g/dL] 9.7 g/dL *LOW* (01/13/24 7:42 AM) 9.8 g/dL *LOW* (01/12/24 1:17 PM) 9.0 g/dL *LOW* (01/10/24 8:51 AM) Hb F [0-2 %] 13.7 % *HI* (01/09/24 4:44 PM) Hb S [NOPR %] 71.8 % *Abnormal* (01/09/24 4:44 PM) 77.1 % *Abnormal* (01/09/24 2:15 AM) K [3.5-5.1 mmol/L] 4.2 mmol/L (01/13/24 7:42 AM) CANCELLED BY MD/NURSING UNIT mmol/L 17 (01/12/24 5:00 AM) 4.0 mmol/L (01/11/24 7:20 AM) Ketones [NEG mg/dL] NEGATIVE mg/dL (01/09/24 3:24 AM) Lactate [0.5-2.2 mmol/L] 0.8 mmol/L (01/09/24 3:56 AM) Leuk Est [NEG] NEGATIVE (01/09/24 3:24 AM) MCH [28-33 pg] 23.1 pg *LOW* (01/13/24 7:42 AM) 23.2 pg *LOW* (01/12/24 1:17 PM) 23.0 pg *LOW* (01/10/24 8:51 AM) MCHC [32-36 g/dL] 33.3 g/dL (01/13/24 7:42 AM) 33.6 g/dL (01/12/24 1:17 PM) 33.3 g/dL (01/10/24 8:51 AM) MCV [81-96 fL] 69.3 fL *LOW* (01/13/24 7:42 AM) 69.0 fL *LOW* (01/12/24 1:17 PM) 68.9 fL *LOW* (01/10/24 8:51 AM) Mg [1.6-2.6 mg/dL] CANCELLED BY MD/NURSING UNIT mg/dL 18 (01/12/24 5:00 AM) 1.9 mg/dL (01/11/24 7:20 AM) 1.9 mg/dL (01/10/24 8:51 AM) Na [136-145 mmol/L] 138 mmol/L (01/13/24 7:42 AM) CANCELLED BY MD/NURSING UNIT mmol/L 19 (01/12/24 5:00 AM) 139 mmol/L (01/11/24 7:20 AM) Nitrite (u) [NEG] NEGATIVE (01/09/24 3:24 AM) PO4 [2.5-4.5 mg/dL] CANCELLED BY MD/NURSING UNIT mg/dL 20 (01/12/24 5:00 AM) 4.3 mg/dL (01/11/24 7:20 AM) 3.5 mg/dL (01/10/24 8:51 AM) Plts [150-350 K/uL] 341 K/uL (01/13/24 7:42 AM) 348 K/uL (01/12/24 1:17 PM) 262 K/uL (01/10/24 8:51 AM) RBC [4.40-5.60 M/uL] 4.20 M/uL *LOW* (01/13/24 7:42 AM) 4.23 M/uL *LOW* (01/12/24 1:17 PM) 3.92 M/uL *LOW* (01/10/24 8:51 AM) Retics (abs) [16.7-96.7 K/uL] 165.5 K/uL *HI* (01/09/24 2:15 AM) Retic (%) [0.40-2.05 %] 3.67 % *HI* (01/09/24 2:15 AM) Sickle Prep [NEG] POSITIVE *Abnormal* (01/09/24 4:44 PM) T Bili [0.0-1.2 mg/dL] 0.9 mg/dL (01/13/24 7:42 AM) CANCELLED BY MD/NURSING UNIT mg/dL 21 (01/12/24 5:00 AM) 1.0 mg/dL (01/11/24 7:20 AM) Prot [6.4-8.3 g/dL] 8.6 g/dL *HI* (01/13/24 7:42 AM) CANCELLED BY MD/NURSING UNIT g/dL 22 (01/12/24 5:00 AM) 8.4 g/dL *HI* (01/11/24 7:20 AM) Appear (u) CLEAR (01/09/24 3:24 AM) Color (u) YELLOW (01/09/24 3:24 AM) Glu (u) [NEG mg/dL] NEGATIVE mg/dL (01/09/24 3:24 AM) Hgb (u) [NEG] NEGATIVE (01/09/24 3:24 AM) pH (u) [5.0-8.0 unit] 6.0 unit (01/09/24 3:24 AM) Prot (u) [NEG mg/dL] NEGATIVE mg/dL (01/09/24 3:24 AM) Urobili [0.1-1.0 EU/dL] 0.1-1.0 EU/dL (01/09/24 3:24 AM) SG [1.005-1.030] 1.011 (01/09/24 3:24 AM) WBC [4.0-10.4 K/uL] 9.26 K/uL (01/13/24 7:42 AM) 9.75 K/uL (01/12/24 1:17 PM) 10.60 K/uL 23 *HI* (01/10/24 8:51 AM) 1Result Comment: DEBBI SAHNI 2Result Comment: DEBBI SAHNI 3Result Comment: DEBBI SAHNI 4Result Comment: Low levels of ALKP may indicate a deficiency in zinc, magnesium, or malnutritionbutcan also be an indicator of a rare genetic disease hypophosphatasia (HPP). 5Result Comment: DEBBI SAHNI 6Result Comment: Low levels of ALKP may indicate a deficiency in zinc, magnesium, or malnutritionbutcan also be an indicator of a rare genetic disease hypophosphatasia (HPP). 7Result Comment: DEBBI SAHNI 8Result Comment: DEBBI SAHNI 9Result Comment: DEBBI SAHNI 10Result Comment: DEBBI SAHNI 11Result Comment: DEBBI SAHNI 12Result Comment: DEBBI SAHNI 13Result Comment: DEBBI SAHNI 14Result Comment: ADA recommendation for FASTING Serum/Plasma Glucose: Normal: 70-100 mg/dL Prediabetes: 100-125 mg/dL Diabetes: 126 mg/dL or higher 15Result Comment: DEBBI SAHNI 16Result Comment: ADA recommendation for FASTING Serum/Plasma Glucose: Normal: 70-100 mg/dL Prediabetes: 100-125 mg/dL Diabetes: 126 mg/dL or higher 17Result Comment: DEBBI SAHNI 18Result Comment: DEBBI SAHNI 19Result Comment: DEBBI SAHNI 20Result Comment: DEBBI SAHNI 21Result Comment: DEBBI SAHNI 22Result Comment: DEBBI SAHNI 23Result Comment: ADJUSTED FOR NUCLEATED RBC'S Orders for Microbiology Reports Name Date Acid Fast Bacillus Cx/Smear, Aspirate (C ULTURE,AFB (ASP)) 01/13/24 Acid Fast Bacillus Cx/Smear, Fluid (AFB Culture and Smear, Fluid) 01/13/24 Anaerobe Culture w Smear, Aspirate (CULT URE,ANER (ASP) 01/13/24 Anaerobe Culture w Smear, Fluid 01/13/24 Aspirate Culture w Smear (CULTURE,ASPIRA TE) 01/13/24 Fluid Culture w Smear 01/13/24 Fungus Culture w Smear, Aspirate (CULTUR E,FUNGUS(ASP)) 01/13/24 Fungus Culture w Smear, Fluid 01/13/24 Acid Fast Bacillus Cx/Smear, Bone 01/12/24 Fungus Culture w Smear, Bone 01/12/24 Microbiology Reports (Most Recent Ten) TEST:AFB.Culture, Aspirate STATUS:Auth (Verified) BODY SITE: SOURCE:Aspirate COLLECTED DATE/TIME:01/13/24 3:30 PM AFB Direct Exam REQUEST CREDITED NS FOR ANALYSIS TEST:AFB.Culture, Fluid STATUS:Auth (Verified) BODY SITE: SOURCE:Fluid COLLECTED DATE/TIME:01/13/24 3:30 PM Status FINAL 01/13/2024 TEST:Anaerobe.Culture, Aspirate STATUS:Unauthenticated BODY SITE: SOURCE:Aspirate COLLECTED DATE/TIME:01/13/24 3:30 PM Culture Culture in Progress TEST:Anaerobe.Culture, Fluid STATUS:Auth (Verified) BODY SITE: SOURCE:Fluid COLLECTED DATE/TIME:01/13/24 3:30 PM Culture REQUEST CREDITED ORDERED WRONG TEST; REORDERED ASPIRATE TEST:Fluid.Cx STATUS:Auth (Verified) BODY SITE: SOURCE:Fluid COLLECTED DATE/TIME:01/13/24 3:30 PM Status FINAL 01/13/2024 TEST:Fungus.Culture, Aspirate STATUS:Unauthenticated BODY SITE: SOURCE:Aspirate COLLECTED DATE/TIME:01/13/24 3:30 PM Fungal Direct Exam NO FUNGAL ELEMENTS SEEN TEST:Fungus.Culture, Fluid STATUS:Auth (Verified) BODY SITE: SOURCE:Fluid COLLECTED DATE/TIME:01/13/24 3:30 PM Status FINAL 01/13/2024 TEST:Aspirate.Culture STATUS:Unauthenticated BODY SITE: SOURCE:Aspirate COLLECTED DATE/TIME:01/13/24 3:30 PM Culture NO GROWTH 2 DAYS TEST:AFB.Culture, Bone STATUS:Auth (Verified) BODY SITE: SOURCE:Bone COLLECTED DATE/TIME:01/12/24 4:53 PM Status FINAL 01/13/2024 TEST:Fungus.Culture, Bone STATUS:Auth (Verified) BODY SITE: SOURCE:Bone COLLECTED DATE/TIME:01/12/24 4:53 PM Status FINAL 01/13/2024 Radiology Reports * Exam Date Time Procedure Performing Provider Status 01/13/24 3:30 PM PS US Aspiration Abscess/Hematoma/Cyst Nallely Pickard; Final Notes: (PS US Aspiration Abscess/Hematoma/Cyst) Reason For Exam: Drainage, +/- cx if enough is collected PS US Aspiration Abscess/Hematoma/Cyst EXAMINATION: PS US Aspiration Abscess/Hematoma/Cyst CLINICAL HISTORY/INDICATION: small abscess adjacent to mid right femur Drainage, +/- cx if enough is collected COMPARISON: Right leg MRI of 01/11/2024 TECHNIQUE: Attending radiologist: Dr. Diggs Physician financial services assistant: Adan Kidd INFORMED DISCUSSION: The procedure was discussed with the patient in detail followed by a discussion of reasonable procedure related risks, benefits, and alternatives to the procedure and all of the patient's questions were answered. General risk of bleeding, infection, damage to adjacent structures and pain were discussed. UNIVERSAL PROTOCOL: The patient's identity and site of aspiration were confirmed at a time out. PROCEDURE: The skin was prepped and draped in sterile fashion. Lidocaine was utilized as a local anesthetic prior to placement of an 18 gauge needle into the abscess adjacent to the midshaft right femur under ultrasound guidance. 1 cc of dark brown murky fluid was aspirated from the abscess. A Band-Aid was placed over insertion site. Fluid sent for cultures. The patient tolerated procedure well without immediate complication. IMPRESSION: Image guided aspiration of abscess adjacent to the midshaft right femur. Adan Kidd PA-C performed the procedure. Dr. Diggs was available if needed for the procedure. Supervision Statement:I attest that I am only providing administrative oversight and did not participate in this procedure. Workstation ID: [id number] Final Dictated by:SORIN Kidd Jesse A Dictated DT/TM:01/13/2024 5:17 Resident:SORIN Kidd Jesse A Signed by:MD Diggs William W Signed (Electronic Signature):01/13/2024 5:16 p * Exam Date Time Procedure Performing Provider Status 01/12/24 8:26 PM XR Facial Bones < 3 Views Eze Thrasher da; Modified Notes: (XR Facial Bones < 3 Views) Reason For Exam: jaw pain, concern for bone infarct 2/2 SCD, or abscess XR Facial Bones < 3 Views EXAMINATION: XR Facial Bones < 3 Views CLINICAL HISTORY: jaw pain, concern for bone infarct 2/2 SCD, or abscess COMPARISON: CT head 02/25/2015 FINDINGS: AP PA and lateral views of the skull. The paranasal sinuses are clear. No air-fluid levels. Mastoid air cells are clear. Bone density is overall normal. Reversal of normal cervical lordosis IMPRESSION: No acute osseous abnormality, however radiography is not sensitive for detection of marrow abnormality, CT or MRI is recommended. Workstation ID: [id number] Final Dictated by:MD Reina Tao Dictated DT/TM:01/13/2024 10:13 Signed by:MD Reina Tao Signed (Electronic Signature):01/13/2024 10:12 * Exam Date Time Procedure Performing Provider Status 01/11/24 8:12 PM MRI Hip w/ + w/o Contrast Right Anthony Krause; Final Notes: (MRI Hip w/ + w/o Contrast Right) Reason For Exam: R/O osteomyletis R femur MRI Hip w/ + w/o Contrast Right EXAMINATION: MRI Lower Extremity w/ + w/o Cnt Right, MRI Hip w/ + w/o Contrast Right CLINICAL HISTORY: R/o osteomyelitis COMPARISON: Radiographs 01/09/2024. MRI 09/22/2021. TECHNIQUE: Right hip: [id number]: pelvis and right hip Axial pelvis T1, T2 fat-sat and post gadolinium T1 fat-sat. Right hip coronal T1, T2 fat-sat and post gadolinium T1 fat-sat. Right femur: [id number]: Right femur from the mid acetabulum to the proximal tibia Axial T1, T2 fat-sat and post gadolinium T1 fat-sat Coronal T1 was gadolinium fat-sat and T2 fat-sat. FINDINGS: Osseous structures: -Similar in appearance but increased in size since prior exam is abnormal signal involving the leftiliac bone extending from the crest superiorly to the acetabular roof and anteriorly from the ASIS to the posterior bone at the SI joint. Signal at this location is increased on both T1, T2 fat-sat and demonstrates enhancement. There is no cortical breakthrough. There is periosteal edema on both sides of the iliac wing. -Similar focus of abnormal signal involves the anterior aspect of the right iliac wing, though decreased since prior. -Well-defined signal abnormality in the right iliac wing adjacent to the SI joint. -Areas of abnormal signal involving both sides of the sacrum on prior study are no longer present. -New signal abnormality in the medial wall of the right acetabulum. -Decreased signal abnormality in the anterior column on the left. -Significantly decreased signal abnormality involving the left femur at the lesser trochanter. -Decreased signal abnormality involving the right femoral neck and increased to slightly worsened signal abnormality involving the proximal right femur. Decreased edema in the soft tissues extending from the femoral neck to the femoral neurovascular bundle. -Signal abnormality involving the right femur spanning from the proximal to distal femoral metaphysis. Periosteal edema noted at this location. Soft tissue edema extends along the fascial planes fromthis local to the femoral neurovascular bundle. -Included portions of the right tibia show metaphyseal signal abnormality. Periosteal edema around this area. -On post office markup clerk images there is a bone infarct of the left femur distally. Articulations: Normal appearance of both SI joints the pubic symphysis and both hips. Soft tissues: There is a focal fluid collection measuring approximately 13 mm AP by 7 mm deep by 29mm craniocaudal along the medial aspect of the mid femoral diaphysis. Smaller, similar finding noted along the lateral aspect of the femur at the distal diaphysis. These collections are heterogeneously bright on T2 and show rim enhancement on post gadolinium sequences. No joint effusion at the knee. Other than periosteal edema noted above there is minimal edema extending into the obturator internus and gluteus medius on the left and into the anterior compartment of the thigh. IMPRESSION: 1. Multiple areas of abnormal signal involving the osseous structures of the pelvis, right femur and included portions of the right tibia, some are new, and some persist but are improved since prior study. 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 2. Areas where there is periosteal edema are likely more acute and include the left iliac wing and the majority of the right femur. Superimposed osteomyelitis is not excluded at the femur where thereare adjacent periosteal abscesses. Workstation ID: [id number] Final Dictated by:MD Howe Pamela L Dictated DT/TM:01/12/2024 9:14 Signed by:MD Howe Pamela L Signed (Electronic Signature):01/12/2024 9:13 a * Exam Date Time Procedure Performing Provider Status 01/11/24 8:11 PM MRI Lower Extremity w/ + w/o Cnt Right Jimi Carole; Final Notes: (MRI Lower Extremity w/ + w/o Cnt Right) Reason For Exam: R/o osteomyelitis MRI Lower Extremity w/ + w/o Cnt Right EXAMINATION: MRI Lower Extremity w/ + w/o Cnt Right, MRI Hip w/ + w/o Contrast Right CLINICAL HISTORY: R/o osteomyelitis COMPARISON: Radiographs 01/09/2024. MRI 09/22/2021. TECHNIQUE: Right hip: Plits-sg-cxra: pelvis and right hip Axial pelvis T1, T2 fat-sat and post gadolinium T1 fat-sat. Right hip coronal T1, T2 fat-sat and post gadolinium T1 fat-sat. Right femur: Tetzt-dv-wbmz: Right femur from the mid acetabulum to the proximal tibia Axial T1, T2 fat-sat and post gadolinium T1 fat-sat Coronal T1 was gadolinium fat-sat and T2 fat-sat. FINDINGS: Osseous structures: -Similar in appearance but increased in size since prior exam is abnormal signal involving the leftiliac bone extending from the crest superiorly to the acetabular roof and anteriorly from the ASIS to the posterior bone at the SI joint. Signal at this location is increased on both T1, T2 fat-sat and demonstrates enhancement. There is no cortical breakthrough. There is periosteal edema on both sides of the iliac wing. -Similar focus of abnormal signal involves the anterior aspect of the right iliac wing, though decreased since prior. -Well-defined signal abnormality in the right iliac wing adjacent to the SI joint. -Areas of abnormal signal involving both sides of the sacrum on prior study are no longer present. -New signal abnormality in the medial wall of the right acetabulum. -Decreased signal abnormality in the anterior column on the left. -Significantly decreased signal abnormality involving the left femur at the lesser trochanter. -Decreased signal abnormality involving the right femoral neck and increased to slightly worsened signal abnormality involving the proximal right femur. Decreased edema in the soft tissues extending from the femoral neck to the femoral neurovascular bundle. -Signal abnormality involving the right femur spanning from the proximal to distal femoral metaphysis. Periosteal edema noted at this location. Soft tissue edema extends along the fascial planes fromthis local to the femoral neurovascular bundle. -Included portions of the right tibia show metaphyseal signal abnormality. Periosteal edema around this area. -On post office markup clerk images there is a bone infarct of the left femur distally. Articulations: Normal appearance of both SI joints the pubic symphysis and both hips. Soft tissues: There is a focal fluid collection measuring approximately 13 mm AP by 7 mm deep by 29mm craniocaudal along the medial aspect of the mid femoral diaphysis. Smaller, similar finding noted along the lateral aspect of the femur at the distal diaphysis. These collections are heterogeneously bright on T2 and show rim enhancement on post gadolinium sequences. No joint effusion at the knee. Other than periosteal edema noted above there is minimal edema extending into the obturator internus and gluteus medius on the left and into the anterior compartment of the thigh. IMPRESSION: 1. Multiple areas of abnormal signal involving the osseous structures of the pelvis, right femur and included portions of the right tibia, some are new, and some persist but are improved since prior study. 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 2. Areas where there is periosteal edema are likely more acute and include the left iliac wing and the majority of the right femur. Superimposed osteomyelitis is not excluded at the femur where thereare adjacent periosteal abscesses. Workstation ID: [id number] Final Dictated by:MD Howe Pamela L Dictated DT/TM:01/12/2024 9:14 Signed by:MD Howe Pamela L Signed (Electronic Signature):01/12/2024 9:13 a * Exam Date Time Procedure Performing Provider Status 01/09/24 2:18 AM XR Chest 1 View Willi Montgomery T; Fi nal Notes: (XR Chest 1 View) Reason For Exam: eval for consolidation in setting of sickle cell XR Chest 1 View EXAMINATION: XR Chest 1 View CLINICAL HISTORY: eval for consolidation in setting of sickle cell COMPARISON: Chest radiograph 08/30/2023 FINDINGS: Supine AP view the chest. Normal cardiomediastinal silhouette and pulmonary vasculature. Hypoventilatory changes with bronchovascular crowding. Bibasilar airspace opacities right greater than left. No large pleural effusion. No pneumothorax. No acute osseous or soft tissue abnormality. IMPRESSION: Bibasilar airspace opacities, right greater than left. Differential diagnosis include infectious process such as pneumonia/aspiration pneumonia in the appropriate clinical context and less likely atelectasis. Furthermore in the clinical context of sickle cell disease this could also represent an acute chest syndrome. Dr. Pam Clarke is the dictating resident. Finalized reports status indicates that the attending has reviewed the images and report, and agrees with the interpretation. Preliminary reportstatus should be regarded as NOT interpreted by the attending radiologist. Workstation ID: [id number] Final Dictated by:Lacie Noriega MD, Yilmarie Dictated DT/TM:01/09/2024 2:48 Resident:Lacie Noriega MD, Yilmarie Signed by:MD Quintana Scott W Signed (Electronic Signature):01/09/2024 2:47 a * Exam Date Time Procedure Performing Provider Status 01/09/24 2:18 AM XR Femur 2 Views Right Krunal Montgomery T; Final Notes: (XR Femur 2 Views Right) Reason For Exam: right thigh pain XR Femur 2 Views Right EXAMINATION: XR Femur 2 Views Right CLINICAL HISTORY: right thigh pain COMPARISON: Radiograph of the pelvis/ FINDINGS: Right femur: AP and crosstable lateral views. Joint spaces and alignment are maintained. No acute fracture. The previously described abnormalities on MRI September 2021 are not visualized are not visible on this study. Soft tissues are unremarkable. No joint effusion of the right knee. IMPRESSION: No acute osseous abnormality at the right femur. Dr. Pam Clarke is the dictating resident. Finalized reports status indicates that the attending has reviewed the images and report, and agrees with the interpretation. Preliminary reportstatus should be regarded as NOT interpreted by the attending radiologist. Workstation ID: [id number] Final Dictated by:Lacie Noriega MD, Yilmarie Dictated DT/TM:01/09/2024 2:50 Resident:Lacie Noriega MD, Yilmarie Signed by:MD Quintana Scott W Signed (Electronic Signature):01/09/2024 2:49 a Vital Signs Most recent to oldest [Reference Range]: 1 2 3 Height 165 cm (01/08/24 11:30 PM) Patient Weight 60.3 kg (01/08/24 11:30 PM) Body Mass Index 22.15 kg/m2 (01/08/24 11:30 PM) Temperature [36.5-37.9 DegC] 37.8 DegC (01/13/24 4:05 PM) 37.1 DegC (01/13/24 12: PM) 36.7 DegC (01/13/24 7:50 AM) Heart Rate 93 bpm (01/13/24 4:05 PM) 96 bpm (01/13/24 12:21 PM) 101 bpm (01/13/24 7:50 AM) Respiratory Rate 16 br/min (01/13/24 4:05 PM) 16 br/min (01/13/24 12:21 PM) 16 br/min (01/13/24 7:50 AM) Blood Pressure 117/71mmHg (01/13/24 4:05 PM) 106/71mmHg (01/13/24 12:21 PM) 113/75mmHg (01/13/24 7:50 AM) Mean Blood Pressure 82 mmHg (01/13/24 4:05 PM) 81 mmHg (01/13/24 12:21 PM) 88 mmHg (01/13/24 7:50 AM) Cuff Pulse Pressure 46 mmHg (01/13/24 4:05 PM) 35 mmHg (01/13/24 12:21 PM) 38 mmHg (01/13/24 7:50 AM) BP Location # 1 Left Arm (01/13/24 4:05 PM) Left Arm (01/13/24 12:21 PM) Left Arm (01/13/24 7:50 AM) Social History Social History Type Response Smoking Status Never smoked cigaret hilda Sex Male Cardiology * Contributor_system, MUSE01: VERIFY, PERFORM Event Display: EKG Authored Date: Please click on link to see image. 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 In [place], he was also treated for pneumonia and was discharged on PO cefdinir. He reports that he is worried about his right thigh pain because in 2020, he had very similar L thigh pain that ultimately was found to be related to osteomyelitis. He reports that his presenting symptoms now are quite similar, with diffuse, all-over body aches that ultimately localized to his thigh. He has not been taking hydroxyurea since discharge from [place] (on Saturday 01/06). He reports that because he has been traveling so much, it seems reasonable that he could have been exposed to someone with a respiratory illness. In the ED, he was afebrile, tachycardic with rates in the low 100s, normotensive, saturating 96% onroom air. Laboratory evaluation in the ED was notable for leukocytosis to 13,000, stable chronic anemia with hemoglobin 10.5, elevated ESR and CRP, elevated reticulocyte count, and largely unremarkable serum chemistries. Chest x-ray in the ED revealed multifocal bilateral opacities that were interpreted as multifocal pneumonia versus acute chest syndrome. Due to his right thigh pain, an x-ray wasobtained of his right femur, which was read as no radiographic abnormality. Hematology oncology wascalled for admission to further manage his acute sickle cell crisis and multifocal pneumonia. Because his hemoglobin seems relatively stable, acute chest seems less likely at this time. Review Of Systems: A 12-point review of systems was completed and was negativeexcept as noted above in the HPI. Past Medical History: as in HPI Procedure History Procedure Procedure Date Comments None Biopsy Surgical History: none Family History: cousin with SCD, mother and older sister with sickle cell trait. Social History: no tobacco, rare ETOH, no illicit drugs. 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 Allergies and Sensitivities: fentaNYL(Numbness) Current Home Meds: (Last Updated 01/08 01:49) acetaminophen (acetaminophen 500 mg oral tablet) 1,000 mg PO q8h PRN: fever/mild pain (1-3) cefdinir (cefdinir 300 mg oral capsule) 300 mg PO q12h celecoxib (celecoxib 100 mg oral capsule) 1 cap PO bid hydroxyurea (hydroxyurea 500 mg oral capsule) on day 1 1000mg PO daily , day 2 1000mgPO daily , day3 500 Mg PO daily then repeat OR as instructed by provider ibuprofen (ibuprofen 400 mg oral tablet) 800 mg PO q8h PRN: pain - mild (1-3) naloxone (naloxone 4 mg/0.1 mL nasal spray) 4 mg intranasal ONCE oxyCODONE (oxyCODONE 10 mg oral tablet) 20 mg PO q4h PRN: pain - moderate (4-6) Vitals: Last Updated 01/09/24 03:00 Weights: Last Updated 01/08/24 23:30 Date Temp Pulse BP RR SpO2 FIO2 Date Wt(kg) Wt(lb) 01/08 03:00 91 114/72 20 98 2.0L/m 01/07 23:30 60.3 133 01/08 02:00 97 117/68 20 94 2.0L/m 01/07 23:30 60.3 133 01/08 01:42 93 121/64 21 96 2.0L/m 01/08 00:35 111 110/77 20 98 RA 01/07 23:30 37.0 107 108/76 20 96 RA 24 Hr Tmax: 37.0 at 01/07 23:30 Initial Wt: 01/07 60.3 kg 133 lb Physical Exam: General - young Black resting comfortably, in no acute distress HEENT -Pupils are equal.No scleral icterus or conjunctival pallor. Cardiac - Regular to auscultation. physiologic S1, S2 without murmurs, rubs, or gallops. There is no JVD. Pulmonary - Lungs with some crackles bilaterally. Chest wall rise is symmetric. Normal work of breathing on ambient room air. Abdomen - Abdomen is soft, nontender to palpation, and nondistended without organomegaly. Normoactive bowel sounds in all quadrants. Extremities - Distal pulses are 2+ in all four extremities. There is no lower extremity edema. Skin - Warm and dry with no rashes, excoriations, or mottling. Neuro - A&Ox4, follows commandsand is able to move all extremities independently. Sensation intact to light touch. Psych - Appropriate mood with congruent affect. Demonstrates good insight and judgment. Most Recent 24 Hour CBC/BMP Results CBC: on 01/09/2024 02:15 CMP: on 01/09/2024 02:15 10.5 133 94 11 13.2 249 90 30.5 4.6 25 0.85 Abs Neut = 8.6 Ca = 9.7 Most Recent 24 Hour Labs: 01/09/24 0356 Lactate 0.8 01/09/24 0258 Estimated CrCl 114.29 01/09/24 0216 Request of Physician See Flowsheet Action Taken See Flowsheet 01/09/24 0215 MCH 23.3 L MCHC 34.4 MCV 67.6 L RBC 4.51 MPV 9.6 Immature Gran% 0.8 Neut% 65.0 Lymph% 21.7 [place]% 12.0 Baso% 0.3 Eos% 0.2 Immat Gran, Abs 0.11 Lymph, Abs 2.86 [place], Abs 1.58 H Baso, Abs 0.04 Eos, Abs 0.03 Type of Diff: See Flowsheet RDW 21.4 H Anion Gap 14 eGFR CKD-EPI >90 Retics (abs) 165.5 H Retic (%) 3.67 H Imm. Retics 45.3 H Retic Hgb 22.5 L Alk Phos 112 ALT 30 AST 39 T Bili 1.3 H Alb 4.4 Prot 8.7 H ESR 67 H CReacProt 14.47 H Studies: Pending or Completed in the Last 24 Hours XR Femur 2 Views Right Completed XR Chest 1 View Completed EKG (ED) Completed ASSESSMENT: Dontrell is a 23M with hemoglobin S/Han hemoglobinopathy complicated by ?osteonecrosis vs osteomyelitis of the L hip in 2020 who p/w acute pain crisis following a recent hospitalizationfor similar as well as treatment of pneumonia. He has bilateral infiltrates concerning for hospital acquired PNA vs. acute chest syndrome, though his stable counts make acute chest less likely. PLAN: _ #Hospital-acquired pneumonia recently hospitalized and treated with IV abx -> definitely at risk for hospital acquired pathogens. s/p vancomycin and cefepime in ED add azithromycin, continue vanc/cefepime bronchodilators PRN cough suppressant PRN #Acute pain crisis of sickle cell disease scheduled Tylenol 1g q8h ibuprofen 800mg q8h prn mild pain oxycodone 20mg q4h prn moderate pain hydromorphone 1mg q2h prn severe pain continue hydroxyurea 500mg daily consult pathology in AM for red cell exchange if concerned that this represents acute chest syndrome Fluids: D5-1/2NS at 150/hr Home Medications Held: cefdinir (from recent hospitalization) Diet: regular DVT ppx: pLov Disposition: Heme onc floors with telemetry BENTLEY: 01/16/24 Barriers to Discharge: PO pain control, treatment of PNA NOK/POA: older sister and two parents Code Status: FULL CODE The patients care wasdiscussed with the overnight on-call fellow, Dr. Emmanuel Rea, who assisted in formulating the assessment and plan. Kehinde Fang MD, [facility] Internal Medicine, PGY-2 I have interviewed the patient including extensive ROS, reviewed pertinent radiological imaging, examined patient and formulated the plan of care in conjunction with the resident. I agree with the coronado components of the evaluation and plan of care. We will continue to follow the patient in the hospital for further management. H/o SCD ([place]) and recently dc from a hospital in [place] where he was treated for ACS and recieved exchange transfusion. Readmitted here due to pain crises Electronic Signature on File Electronically Reviewed/Signed by: Kehinde Fang MD Author Signature Dt/Tm:01/09/2024 05:24 AM Resident Division of Internal Medicine Electronically Reviewed/Signed by: Zach Magaña MD Cosigner Signature Dt/Tm: 01/09/2024 02:07 PM Oncology/Hematology [facility] Orthopaedics Consult * MD Nena, Bella L: PERFORM, MODIFY, MODIFY, MODIFY MD Venessa, Gena P: MODIFY Event Display: Orthopaedics Consult Authored Date: [id number] ORTHOPAEDICS CONSULTATION REPORT Name: DONTRELL CONNORS Patient Number: [id number] : 2000 Date of Service: 01/12/2024 REQUESTING SERVICE: Hematology oncology REASON FOR CONSULTATION: Concern for right femoral osteomyelitis/ periosteal abscess TIME OF EVALUATION: 1300 TIME OF CONSULTATION: 1250 HISTORY OF PRESENT ILLNESS: 23-year-old male with past medical history of sickle cell disease currently admitted for pain crisis. The patient reports onset of symptoms last in [place]. He states that he was having right thigh pain and presented to [facility] for sicjle cell crisis. In [place] he was treated for pneumonia and discharged on PO cefdinir. Once patient returned to home he ultimately presented to the emergency department for further evaluation of his continued right thighpain. He was ultimately admitted to the hematology oncology service for acute sickle cell crisis. Patient does have a history of a prior left femur osteomyelitis and he states that his symptoms feel similar to what they did at that time. He states that he had right thigh pain and then diffuse bodyaches. Patient states that he currently has virtually no thigh pain and has been able to ambulate on the extremity without any difficulties. Patient has been afebrile and hemodynamically stable during this admission. In the emergency department patient was noted to have a white blood cell of 13, ESR 68, CRP 11, repeat WBC noted to be 9.7 with ESR and CRP pending Of note the last time orthopedic surgery was consulted for possible left femur osteomyelitis a coreneedle biopsy was performed with no growth from the biopsy site PAST MEDICAL HISTORY: Sickle cell disease PAST SURGICAL HISTORY: None CURRENT MEDICATIONS: Hydroxyurea ALLERGIES AND SENSITIVITIES: NKDA FAMILY HISTORY: Denies history of bleeding disorders, clotting disorders or reactions to anesthesia. Although the patient experiences nosebleeds during crises. SOCIAL HISTORY: Never smoked cigarettes. endorses social alcohol use. No illicit drugs. 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 PHYSICAL EXAMINATION: General: well appearing seen in NAD HEENT: normocephalic, atraumatic Neck: trachea midline Cardiac: regular rate Lungs: nonlabored on exam Abdomen: soft, nondistended Extremities: RLE: No tenderness noted over RLE. No signs of swelling, erythema or trauma to the RLE. Compartments are soft and compressible. No pain with passive range of motion. Motor testing reveals intact EHL,FHL, GS, TA. SILT in SP/DP/Saph/[place]/tib nn distributions. 2+ dp pulse with good capillary refill LLE: No tenderness noted over RLE. No signs of swelling, erythema or trauma to the RLE. Compartments are soft and compressible. No pain with passive range of motion. Motor testing reveals intact EHL,FHL, GS, TA. SILT in SP/DP/Saph/[place]/tib nn distributions. 2+ dp pulse with good capillary refill IMAGING: MRI of the pelvis and right leg was noted to have multiple areas of osteonecrosis with areas of periosteal edema along the right femur for which superimposed osteomyelitis cannot be excluded ASSESSMENT AND PLAN: 23-year-old male admitted for sickle cell crisis to hematology oncology, due to persistence of right proximal thigh pain and MRI findings of avascular necrosis with possible osteo for which orthopedics was consulted for further evaluation. Patient inflammatory markers are elevated, he has a known pulmonary infection this could be elevated secondary to his pulmonary process. The patient reports that overall his pain is improving. - no acute surgical intervention from an orthopedic standpoint patient is HDS, improving clinicallywith improved inflammatory markers CRP 8 from 14. - IV antibiotics per ortho infectious disease - Given location and size this is not something orthopedic surgery would peruse surgically if ID wants to pursue cultures then we recommend an IR consult for potential drainage of the fluid collection - Patient staffed with Dr. Clifford - TT orthopedic resident construction stonemason with any additional questions Physician Attestation: I saw and evaluated the patient on the date of service. Discussed with resident and agree with residents finding and plan as documented in the residents note. Have not seen the patient. Have reviewed the note. X Have not seen patient, have reviewed the note, and I have personally discussed with the resident and/or physician blueberry grower on the date of service. Other: Would recommend IR guided biopsy/aspiration of fluid collection noted on MRI. Gena Clifford MD Electronic Signature on File Electronically Reviewed/Signed by: Bella Barrett Author Signature Dt/Tm:01/12/2024 03:26 PM Resident Division of Orthopaedics Electronically Reviewed/Signed by: Gena Clifford MD Cosigner Signature Dt/Tm: 01/12/2024 04:34 PM Division of Orthopaedics KLS * MD Luz, Dora: PERFORM, MODIFY, MODIFY, MODIFY Event Display: ID Ortho Inpt Consult Authored Date: [id number] ID ORTHO INPATIENT CONSULTATION REPORT Name: DONTRELL CONNORS Patient Number: [id number] : 2000 Date of Admission: 01/08/2024 Date of Service: 01/12/2024 REQUESTING PHYSICIAN'S NAME: MD Joseph Megan REASON FOR CONSULTATION: _ Abx management of suspected R femur osteomyelitis with periosteal fluid collection in SCD patient ASSESSMENT: _ 23-year-old gentleman with history of sickle cell disease, complicated by recurrent vaso-occlusive crisis, acute chest syndrome and history of avascular necrosis of left femur in 2020, who presented to [facility] on 2023 due to "sickle cell crisis" with worsening right thigh pain and some shortness of breath for past few days. MRI R-hip/thigh revealed areas where there is acute periosteal edemainclude the left iliac wing and the majority of the right femur, which could be due to ischemic necrosis however osteomyelitis cannot be rule out, also at femur where there are adjacent periosteal abscesses. Concerns for osteomyelitis of R femur c/b periosteal abscess - It is difficult to discern if MRI findings are due to ischemic necrosis or has infection; thus weneed to get some sample guide us further as management is different for these problems -Pt not amenable for bone biopsy at this time; he states that the last time he had he had pain at biopsy site and was not given any local and he had local pain for months and could walk; he states that he would rather take antibiotics for months. Acute chest syndrome versus community acquired pneumonia -Patient has been appropriately treated with more than 10 days course of antibiotics and currently does not have any symptoms of pneumonia hence recommend stopping it -Recommend reviewing vaccination with the patient as he should be getting pneumococcal 20 vaccine not previously vaccinated Hx of LEFT Femur osteomyelitis in 09/202109/25/21 BONE BIOPSY-LEFT HIP CT/guided with necrotic debris. -Femur, left, core biopsy: Consistent with osteomyelitis , ALL cultures were negative at final s/p 6 weeks course of levofloxacin RECOMMENDATIONS: _ 1 ) _ Consult IR for drainage of periosteal abscess and sending the sample for cultures; routine bacterial, fungal and AFB, with this unfortunately, would not be able to send tissue biopsy with this,which is gold standard 2 ) _hold off on continuing current antibiotics that days ceftriaxone and azithromycin 3 ) _please update ESR and CRP with morning labs tomorrow 4)_if patient not amenable for bone biopsy; then we would likely end up treating this empirically with 6 weeks course of antibiotics therapy. However final choice of antibiotics TBD based on clinicalcourse and culture results I relayed these recommendations directly to the primary team resident Please feel free to reach out with any questions or concerns, Ortho ID will continue to follow along. Dora Escobar MD Wastewater Engineerroll cleaner Division of Infectious Diseases [facility] office [place] [facility] or pager [phone] 15 minutes Reviewing notes, cultures, lab results. imaging, medications doses, etc. 15 minutes Interviewing and examining patient 15 minutes Discussing thoughts and plans with primary team and other consultants 15 minutes Composing EMR note, which involves reviewing updated notes, cultures, imaging meds, etc. HPI: _ 23-year-old gentleman with history of sickle cell disease, complicated by recurrent vaso-occlusive crisis, acute chest syndrome and history of avascular necrosis of left femur/osteomyelitis in 2020, who presented to [facility] on 01/09 2024 due to worsening right thigh pain and some shortness of breath for past few days. Of note patient just returned from a trip to [place] and they are he was hospitalized for 5 days due to sickle cell crisis and was also diagnosed with pneumonia for which he was discharged on p.o. cefdinir for 5 days and received exchange transfusion. His chest pain and breathing got better after this but he continued to have right thigh pain and given his previous history of left femur osteomyelitis that was diagnosed in 2020 he was worried and thought this could be the same problem as he had in 2020. He also reports having high grade fevers to 103F prior to admission and night sweats. His fevers resolved but continued to have night sweats. Upon presentation to the ED he was afebrile, but tachycardic with heart rate in 100s, blood pressure was stable, he was maintaining saturation on room air. He had leukocytosis to 13,000, His inflammatory marker CRP was elevated to 14.47, ESR 67, MRSA nares was negative, chest x-ray demonstrated multifocal airspace disease consistent with acute chest syndrome versus pneumonia/aspiration pneumonia,blood cultures were obtained revealed no growth to date. Patient was started on ceftriaxone and azithromycin. MRI of right lower extremity/Hip joint with contrast demonstrated IMPRESSION: 1. Multiple areas of abnormal signal involving the osseous structures of the pelvis, right femur and included portions of the right tibia, some are new, and some persist but are improved since prior study. 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 2. Areas where there is periosteal edema are likely more acute and include the left iliac wing and the majority of the right femur. Superimposed osteomyelitis is not excluded at the femur where thereare adjacent periosteal abscesses. He states that he is doing well, and denies for any CP, or SOB, or cough. But endorses diffuse R thigh pain. Also reports night sweats. But no chills. Denies for any N/V/D tolerating current antimicrobial. PAST MEDICAL HISTORY: Problems: Trigeminal neuralgia Chest pain Ligament laxity Headache Sickle cell-hemoglobin Han disease Hospital Day: 4 Surgical Hospital Day/Procedure: No procedures found MEDICATIONS: Active Inpt Meds: acetaminophen 1,000 mg PO q8h cefTRIAXone 1,000 mg IV q24h enoxaparin 40 mg subQ q24h hydroxyurea 500 mg PO Daily senna 8.6 mg PO Daily Active PRN Meds: HYDROmorphone 1 mg IV Push q2h albuterol-ipratropium (DuoNeb) 3 mL NEB q4h ondansetron (Zofran) 4 mg IV Push q6h oxyCODONE 20 mg PO q4h Active IV Meds: None Allergies and Sensitivities: fentaNYL(Numbness) VITAL SIGNS AND EXAM: Vitals: Last Updated 01/12/24 11:42 Weights: Last Updated 01/08/24 23:30 Date Temp Pulse BP RR SpO2 FIO2 Date Wt(kg) Wt(lb) 04 11:42 37.0 88 105/73 16 100 RA 01/07 23:30 60.3 133 01/11 07:54 37.3 72 110/72 16 100 RA 01/07 23:30 60.3 133 01/11 04:02 36.3 75 102/72 17 100 RA 01/10 23:19 37.0 84 100/63 17 99 RA 01/10 20:34 36.7 94 109/75 16 99 RA 24 Hr Tmax: 37.3 at 01/11 07:54 36 Hr Tmax: 37.5 at 01/10 11:54 Vital Signs are the last 5 in the past 48 hours. Weights display the last 5 within 7 days. Initial Wt: 01/07 60.3 kg 133 lb Recorded Input Output Balance 01/11 7a-3p 300 0 300 3p-11p 0 0 0 11p-7a 0 0 0 24 Total 300 0 300 01/10 7a-3p 1040 400 640 3p-11p 10 425 -415 11p-7a 0 800 -800 24 Total 1050 1625 -575 Refer to the I-VIEW - I and O tab for details EXAM: General: Laying comfortably in the bed, not in acute distress HEENT: Normocephalic, atraumatic, PERRLA Neck: Supple, no obvious thyromegaly CVS: S1, S2 audible, no murmur or gallop or elevated JVD, palpable peripheral pulses Lungs: Clear to auscultation bilaterally, no crackles, or wheezing Abdomen: Distended, soft, nontender, no hepatosplenomegaly Extremities: No edema, no muscle wasting, no tenderness over iliac crest or anterior thigh -RIGHT, excellent ROM at hip Skin: No laceration, abrasion, rashes or hives Neurologic: No focal neurological deficit was observed, ANO x4 Psych: Pleasant and cooperative LABS: Most Recent Lab Results over the last 24 Hours: CMP: on 01/12/2024 05:00 0 0 0 0 0.0 0 0.00 Ca = 0.0 eGFR CKD-EPI: CANCELLED BY MD/NURSING UNIT Most Recent 24hr Labs as of 01/11 0500 Anion Gap CANCELLED BY MD/NURSING UNIT Mg CANCELLED BY MD/NURSING UNIT PO4 CANCELLED BY MD/NURSING UNIT eGFR CKD-EPI CANCELLED BY MD/NURSING UNIT Alk Phos CANCELLED BY MD/NURSING UNIT ALT CANCELLED BY MD/NURSING UNIT AST CANCELLED BY MD/NURSING UNIT T Bili CANCELLED BY MD/NURSING UNIT Alb CANCELLED BY MD/NURSING UNIT Prot CANCELLED BY MD/NURSING UNIT OTHER LABS: RELEVANT IMAGIN01/10/24 MRI Lower Extremity w/ + w/o Cnt Right IMPRESSION: 1. Multiple areas of abnormal signal involving the osseous structures of the pelvis, right femur and included portions of the right tibia, some are new, and some persist but are improved since prior study. 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 2. Areas where there is periosteal edema are likely more acute and include the left iliac wing and the majority of the right femur. Superimposed osteomyelitis is not excluded at the femur where thereare adjacent periosteal abscesses. 01/10/24 MRI Hip w/ + w/o Contrast Right IMPRESSION: 1. Multiple areas of abnormal signal involving the osseous structures of the pelvis, right femur and included portions of the right tibia, some are new, and some persist but are improved since prior study. 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 2. Areas where there is periosteal edema are likely more acute and include the left iliac wing and the majority of the right femur. Superimposed osteomyelitis is not excluded at the femur where thereare adjacent periosteal abscesses. 01/09/24: CXR IMPRESSION: Bibasilar airspace opacities, right greater than left. Differential diagnosis include infectious process such as pneumonia/aspiration pneumonia in the appropriate clinical context and less likely atelectasis. Furthermore in the clinical context of sickle cell disease this could also represent an acute chest syndrome. RELEVANT CULTURES: 01/09/24: BCX X2 NGTD Antimicrobial hx: CTX 01/08--- Azithromycin 01/08--- s/p 5 days course of cefdinir Electronic Signature on File Electronically Reviewed/Signed by: Dora Escobar MD Author Signature Dt/Tm:01/12/2024 04:46 PM Division of Infectious Diseases and Epidemiology [facility] Emergency department Summary note * MD Ziegler Jessica L: MODIFY Ziegler, MD, Verona L: MODIFY, MODIFY, MODIFY, MODIFY, MODIFY, MODIFY, MODIFY Emelia, DO, Catherine: MODIFY, MODIFY Emelia, DO, Catherine: MODIFY, MODIFY Emelia, DO, Catherine: MODIFY, PERFORM Emelia, DO, Catherine: PERFORM, MODIFY Emelia, DO, Catherine: MODIFY, MODIFY Emelia, DO, Catherine: MODIFY, MODIFY Emelia, DO, Catherine: MODIFY, MODIFY Emelia, DO, Catherine: MODIFY, MODIFY Emelia, DO, Catherine: MODIFY, MODIFY Emelia, DO, Catherine: MODIFY, MODIFY Emelia, DO, Catherine: MODIFY, MODIFY Emelia, DO, Catherine: MODIFY Event Display: ED Summary Authored Date: [id number] Basic Information Time Seen: DO Kapoor Kari 01/09/2024 01:28 Chief Complaint Pt c/o RLE pain that started 1 week ago. Hx of sickle cell. Was just dc'd from hospital in [place]. Dxwith PNA. Denies fevers. History of Present Illness Rony CONNORS a23 Yearsold patient with a PMH includingsickle cell disease (Hgb S/Han), left femurosteomyelitis in 2020who presents to the emergency department with a chief complaint of right lower extremity thigh painanddiffuse body pain. Patient is accompanied by his sister who assists with providing history. Family reports that his symptoms startedthis past Wednesday (1 week ago). On Wednesday he wasin [employer] work and was brought to the hospital and admitted for a sickle cell crisis. Patient was also found to have pneumonia at that time andwas treated withIV antibiotics, pain medications and received blood transfusions while in the hospital. The patient reports that he was discharged on Wednesday.Patient is still taking cefdinir for his recent pneumonia. Since being discharged patient states he has not been taking his hydroxyurea. Patient's sister reports that in the pasthis pain crises typicallyare diffusegeneral body aches. However in 2020 he had persistent pain in his left thigh and was ultimately diagnosed with osteomyelitis. Family states thathe has been having right thigh painfor the past weekbut didnot receive imaging at the outside hospital. They are concerned that he may have developed osteomyelitis in thisextremityas his symptoms are consistent with prior. Family states that he has been having chills today and had a home temperature of100.3 F. Patient also reports he has beenhaving some central chest pain but denies any trouble breathing, nausea or vomiting. Review of Systems A 10-point review of systems was completed and is otherwise negative unless noted above in the HPI. Physical Exam Vitals & Measurements T:37.0C HR:93(Monitored) RR:21 BP:121/64 SpO2:96% Oxygen Therapy:Room air HT:165cm WT:60.300kg(Dosing) WT:60.3kg BMI:22.15 I have reviewed the triage vital signs. CONST:Well nourished, appears stated age EYES:Pupils equal and round, no scleral icterus HENT:Normal cephalic, atraumatic, no significant lymphadenopathy CV:Regular rate and regular rhythm, no murmurs, skin warm with well-perfused extremities RESP:Clear to auscultation bilaterally, unlabored respiratory effort GI:Soft, non-tender, non-distended, no masses MSK:No gross deformities appreciated, no peripheral edema, tenderness to theright thigh withoutdeformity SKIN:Warm, dry, no rashes NEURO:Alert, cranial nerves II through XII grossly intact, sensation and motor function of extremities grossly intact PSYCH:Appropriate mood and affect Medical Decision Making This is a 23-year-old male with a history of sickle cell who presents to the ED with diffuse painconsistent with prior sickle cell crisis as well asright thigh pain. [place] He is currently receivingp.o. cefdinir. Patient states that he has been noncompliant with his hydroxyurea since being discharged from the hospital. Family reports that he had a low-grade fever at home but is afebrile here in the emergency department. Patient is tachycardicon arrival but normotensive. Differential diagnosis includes acute chest syndrome, pneumonia,pain crisis, osteomyelitis Will obtain basic labs including CBC, CMP, reticulocyte panel,type and screen,ESR and CRPas well as chest x-ray andx-ray of the right femur Will give the patient 1 mg of Dilaudid IV as well as a liter bolus of LR. Per mypersonal and independentinterpretation ofpatient's chest x-ray demonstrated concern forbilateral airspace opacities for pneumonia versus acute chest. As a resultwill obtain blood cultures, lactic acid and treat empirically forpneumonia. Willprovide expanded coverage for possible hospital-acquired in setting of patient's recent hospitalization and provide vancomycin and cefepime. Patient is already being treated with IVF and pain medication if this is acute chest, in addition to being placed on oxygen. Patient's x-ray of the femur did not demonstrate any evidence offindings consistent with osteomyelitis. Patient's inflammatory markers were elevatedwhich could be seen in the setting of pneumoniaas well as osteomyelitis. If pain persist, patient may need MRI to evaluate further while admitted. On reassessment patient was saturating 93% on room air subsequently placed on 2 L nasal cannula.After being placed on nasal cannula patient was saturating around 98%. Additionally on reassessment patient's pain wasreturning and he requested additional pain medications. Patient was given another 1 mg of Dilaudid. After the 1 L of LR will start the patient on maintenance rate of D5NS. Patient's labs demonstrated mild leukocytosis at 13.2,his hemoglobin was around his baseline/prior at 10.5. Patient's reticulocytes demonstrate an appropriateelevation in the setting of his anemia/acute crisis. Patient and family were informed of our desire to hospitalizethe patient to hematology forIV antibiotics and continued treatment in the setting of likely acute chest syndrome with acute sickle cell crisis. The patient and family are amenable with the plan for hospitalization andhematologyagreed to evaluate the patient for hospitalization in the setting ofacute chestsyndrome. Reexamination/Reevaluation 01/09/2024 02:55:19-Marion text to the heme-oncED triageteamto admit the patient for acute chest syndrome/pneumonia Assessment/Plan Acute chest syndrome Pneumonia Sickle cell anemia Medication Reconciliation Unchanged acetaminophen (acetaminophen 500 mg oral tablet)2 tab(s) by mouth every 8 hours as needed fever/mild pain (1-3). Refills: 0. cefdinir (cefdinir 300 mg oral capsule)1 cap by mouth every 12 hours. celecoxib (celecoxib 100 mg oral capsule)1 cap by mouth 2 times daily. Refills: 1. hydroxyurea (hydroxyurea 500 mg oral capsule)on day 1 1000mg PO daily , day 2 1000mgPO daily , day 3 500 Mg PO daily then repeat OR as instructed by provider. Refills: 5. ibuprofen (ibuprofen 400 mg oral tablet)2 tab(s) by mouth every 8 hours as needed pain - mild (1-3). Refills: 1. naloxone (naloxone 4 mg/0.1 mL nasal spray)4 Milligram in the nose once. Refills: 0. oxyCODONE (oxyCODONE 10 mg oral tablet)20 Milligram by mouth every 4 hours as needed pain - moderate (4-6). Refills: 0. Attestation Attending Note: I independently corroborated the coronado portions of the History and Physical Examination reported to me by the resident involved in this patient's care via an independent history taking and physical examination, and was actively involved in the Medical Decision Making. I agree with the evaluation, treatment and planned disposition as noted above. Verona Ziegler MD Problem List/Past Medical History Ongoing Chest pain Headache Ligament laxity Sickle cell-hemoglobin Han disease Trigeminal neuralgia Procedure/Surgical History NoneBiopsy Allergies fentaNYL (Moderate)Numbness Family History Family history is negative Lab Results Chemistry LATEST RESULTS HISTORICAL RESULTS Na 01/09/24 02:15 133 mmol/L Low 09/05/23 139 mmol/L K 01/09/24 02:15 4.6 mmol/L 09/05/23 3.8 mmol/L Cl- 01/09/24 02:15 94 mmol/L Low 09/05/23 101 mmol/L HCO3 01/09/24 02:15 25 mmol/L 09/05/23 27 mmol/L Anion Gap 01/09/24 02:15 14 mmol/L 09/05/23 11 mmol/L BUN 01/09/24 02:15 11 mg/dL 09/05/23 8 mg/dL Cret 01/09/24 02:15 0.85 mg/dL 09/05/23 0.80 mg/dL Estimated CrCl 01/09/24 02:58 114.29 09/05/23 117.41 eGFR CKD-EPI 01/09/24 02:15 >90 mL/min/1.73 m2 09/05/23 >90 mL/min/1.73 m2 Glu 01/09/24 02:15 90 mg/dL 09/05/23 89 mg/dL Ca 01/09/24 02:15 9.7 mg/dL 09/05/23 8.9 mg/dL CBC LATEST RESULTS HISTORICAL RESULTS WBC 01/09/24 02:15 13.21 K/uL High 12/14/23 7.24 K/uL Hgb 01/09/24 02:15 10.5 g/dL Low 12/14/23 10.8 g/dL Low Hct 01/09/24 02:15 30.5 % Low 12/14/23 32.9 % Low RBC 01/09/24 02:15 4.51 M/uL 12/14/23 4.76 M/uL MCV 01/09/24 02:15 67.6 fL Low 12/14/23 69.1 fL Low MCHC 01/09/24 02:15 34.4 g/dL 12/14/23 32.8 g/dL MCH 01/09/24 02:15 23.3 pg Low 12/14/23 22.7 pg Low RDW 01/09/24 02:15 21.4 % High 12/14/23 18.0 % High Plts 01/09/24 02:15 249 K/uL 12/14/23 198 K/uL MPV 01/09/24 02:15 9.6 fL 12/14/23 9.0 fL Type of Diff: 01/09/24 02:15 AUTO 12/14/23 AUTO Immature Gran% 01/09/24 02:15 0.8 % 12/14/23 0.3 % Neut% 01/09/24 02:15 65.0 % 12/14/23 50.0 % Lymph% 01/09/24 02:15 21.7 % 12/14/23 41.7 % [place]% 01/09/24 02:15 12.0 % 12/14/23 6.6 % Baso% 01/09/24 02:15 0.3 % 12/14/23 0.4 % Eos% 01/09/24 02:15 0.2 % 12/14/23 1.0 % Immat Gran, Abs 01/09/24 02:15 0.11 K/uL 12/14/23 0.02 K/uL Neut, Abs 01/09/24 02:15 8.59 K/uL High 12/14/23 3.62 K/uL Lymph, Abs 01/09/24 02:15 2.86 K/uL 12/14/23 3.02 K/uL [place], Abs 01/09/24 02:15 1.58 K/uL High 12/14/23 0.48 K/uL Baso, Abs 01/09/24 02:15 0.04 K/uL 12/14/23 0.03 K/uL Eos, Abs 01/09/24 02:15 0.03 K/uL 12/14/23 0.07 K/uL Liver/GI LATEST RESULTS HISTORICAL RESULTS ALT 01/09/24 02:15 30 unit/L 09/05/23 12 unit/L T Bili 01/09/24 02:15 1.3 mg/dL High 09/05/23 1.0 mg/dL Alk Phos 01/09/24 02:15 112 unit/L 09/05/23 68 unit/L AST 01/09/24 02:15 39 unit/L 09/05/23 29 unit/L Nutrition LATEST RESULTS HISTORICAL RESULTS Alb 01/09/24 02:15 4.4 g/dL 09/05/23 4.0 g/dL Prot 01/09/24 02:15 8.7 g/dL High 09/05/23 7.1 g/dL Rheumatology LATEST RESULTS CReacProt 01/09/24 02:15 14.47 mg/dL High ESR 01/09/24 02:15 67 mm/hr High Heme/Onc LATEST RESULTS HISTORICAL RESULTS Retic Hgb 01/09/24 02:15 22.5 pg Low 09/05/23 21.9 pg Low Retic (%) 01/09/24 02:15 3.67 % High 09/05/23 6.07 % High Imm. Retics 01/09/24 02:15 45.3 % High 09/05/23 36.9 % High Retics (abs) 01/09/24 02:15 165.5 K/uL High 09/05/23 227.0 K/uL High Added Tests LATEST RESULTS HISTORICAL RESULTS Request of Physician 01/09/24 02:16 Hemoglobin S percentage 09/02/23 Hemoglobin S percentage. Haptoglobin Action Taken 01/09/24 02:16 YES 09/02/23 YES Diagnostic Results (01/09/2024 02:18 EDT XR Chest 1 View) IMPRESSION: Bibasilar airspace opacities, right greater than left. Differential diagnosis include infectious process such as pneumonia/aspiration pneumonia in the appropriate clinical context and less likely atelectasis. Furthermore in the clinical context of sickle cell disease this could also represent an acute chest syndrome. [1] (01/09/2024 02:18 EDT XR Femur 2 Views Right) IMPRESSION: No acute osseous abnormality at the right femur. [2] ECG Per my interpretation: EKG showsnormal sinus rhythm, rate 96, normal NE/QRS/QTc intervals, normalaxis, no significant ST elevations or depressions, no T wave inversions, no ectopy, borderline criteria for LVH. Overall this is a reassuring EKG without signs of ischemia. [1]XR Chest 1 View; MD Quintana Scott W 01/09/2024 02:18 EDT [2]XR Femur 2 Views Right; MD Quintana Scott W 01/09/2024 02:18 EDT Electronic Signature on File Electronically Reviewed/Signed by: Catherine Kapoor DO Author Signature Dt/Tm:01/09/2024 04:23 AM Resident Department of Emergency Medicine Electronically Reviewed/Signed by: Verona Ziegler MD, MS Cosigner Signature Dt/Tm: 01/11/2024 11:05 AM Department of Emergency Medicine [place] Discharge instructions * DO Newsome Julio: PERFORM Event Display: Patient Discharge Instructions Authored Date: [id number] DONTRELL CONNORS :2000 Visit Date:01/08/2024 Patient Discharge Instructions [facility] For medical concerns, call: . Date of Admission:01/08/2024 Date of Discharge:01/13/2024 Physician:MD Joseph Megan Service:Hematology/Oncology Discharge Disposition:Home . Advance Directive:None Reason for Hospitalization Lower extremity pain, right Your Diagnoses Lower extremity pain, right Osteomyelitis hip Sickle cell anemia Abscess Pneumonia Acute chest syndrome Sepsis My Health Patient Portal: [facility] makes it easy for you to manage your health information online. [facility] is a free service that provides you instant, secure access to your medical information anytime, anywhere. Sign in or set up your account today at [email or web address] Thank you for allowing us to assist you with your healthcare needs. If you need additional community resources, [facility] can help at [email or web address]. 211 can assist you in connecting with social programs based on your unique needs and locations. 211 is an anonymous search that can help you locate resources for: Food, Housing, Transportation, Goods, Education and Healthcare. Medications Patient is enrolled in Rx-to-Go Program New medications will be delivered from [facility] to patient's room at discharge: Mon-Sun from 9AM-5 PM. Medications MUST be PICKED UP at [facility] if patient is discharged Mon-Sun after 5 PM or anytime on holidays. Please note, the [facility] closes at 8 PM on and 5:30 PM on Saturdays, Sundays, and holidays. What How Much When Instructions Next Dose New levoFLOXacin (levoFLOXacin 750 mg oral tablet) 1 tab(s) by mouth Every 24 hours Duration: 6 week(s) Take once tab, once a day Pickup at [facility] [place] Changed oxyCODONE (oxyCODONE 20 mg oral tablet) 20 Milligram by mouth Every 4 hours as needed for Pain Duration: 7 Days Take one tab for pain, every four hours as needed Pickup at [facility] Unchanged acetaminophen (acetaminophen 500 mg oral tablet) 2 tab(s) by mouth Every 8 hours as needed for fever/mild pain (1-3) Unchanged celecoxib (celecoxib 100 mg oral capsule) 1 cap by mouth 2 times daily Unchanged hydroxyurea (hydroxyurea 500 mg oral capsule) See instructions on day 1 1000mg PO daily , day 2 1000mgPO daily , day 3 500 Mg PO daily then repeat OR as instructed by provider Unchanged ibuprofen (ibuprofen 400 mg oral tablet) 2 tab(s) by mouth Every 8 hours as needed for pain - mild (1-3) Unchanged naloxone (naloxone 4 mg/ 0.1 mL nasal spray) 4 Milligram in the nose Once Pharmacy Information [facility] [place]: [address] [place] [address] DINORAH Lyon [phone] What How Much When Comments Stop Taking cefdinir (cefdinir 300 mg oral capsule) 1 cap by mouth Every 12 hours Allergies fentaNYL (Moderate)Numbness What to do next Instructions From Your Doctor You were admitted to [facility] for the treatment of the following: Acute pain crisis of Right lower extremity and Pneumonia While in the hospital,you were started on a pain regimen of oxycodone 20 mg every 4 hours andTylenol1 g every 8 hours. You tolerated this medication regimen welland did not have any side effects. I reached out to your [employer] infrastructure consultant Dr. Willi Calderon,andhe would like tosee you againin approximately 1 to 2 weeksfor follow-up of your pain management. He recommended that I discharge her withoxycodone 20 mg every 4 hoursfor a duration of 1 week, and that he willreadjust her pain regimen in the outpatient setting.If you run out, resume your previous pain regimen.You canobtain [id number]. Your MRI of your right lower extremity showed abscesses and possible superimposed osteomyelitis. As such you were prescribed levofloxacin 750 mg to be takenonce a dayfor 6 weeks.You will have f/u with Dr. Dora Escobar in approximately [address] at [address] [place] [address] [place], [place]. She is following your cultures andher office willcall you if there are immediate changes to your antibiotic plans. You were given a prescription for lab collection. Please get the labs every other week. For specifics, see "Follow-up labs" below. Please do not continue taking any of the cefdiniryou have left over at home. A discharge summary will be sent to your primary care physician to ensure continuity of care. Please bring this discharge summary with you to your next office appointment so that your provider canreview it at that time. Follow-up appointments: 1. Keep all your follow-up appointments as already scheduled. If you cannot make an appointment, notify your provider. 2. We have requested an appointment with your primary care provider within 1 week of discharge. Follow-up labs: CBC w diff, CMP, ESR and CRP every other week fax results to ID at [phone] Medications: - Your medication list has been reviewed and reconciled upon discharge to ensure accuracy and continuity of care. - You are provided with a list of all your current medications at this time. Please review closely and make note of any changes. - Please take all of your medications exactly as prescribed. - Tell your primary care provider if you cannot afford your medications. - Call your primary care provider if you are having any side effects or any other problems. - Call your primary care provider before taking any over the counter medications or supplements, including herbals and vitamins, because some of these may interact with your current medications and/or make your symptoms worse. It was our pleasure to care for you during your hospitalization. If you notice the following symptoms Please call your primary care provider for symptoms including, but not limited to: fevers (temperatures >100.4 degrees F or 38.1 degrees C), chills, intractable nausea or vomiting, diarrhea, rash,shortness of breath, bleeding, pain, or if you experience any worsening of the symptoms that brought you to the hospital. ForEMERGENCYandVERY SERIOUShealth-related issues, such as chest pain, shortness of breath, or sudden onset of the symptoms that brought you to the hospital, you may need [facility] [id number] [facility]. Contact our Careline at . If unable to contact your physician and you feel it is an emergency, go to the nearest Emergency Room or call 911 Diet Instructions At this moment in time you have no restrictionson your diet. You may eat your usual foods. Itis recommended you consume lean proteins, fruits, vegetables, and avoid friedor processed foodsif able. Activity Instructions You may resume your previous home activities, but go slowly and pace yourself as tolerated. Always take fall precautions, and ask for assistance as you regain your strength, coordination, and endurance. Follow-Up Appointments Scheduled Follow-Up Appointments Date/Time:Provider/Resource: Mar 03:20 pmMD Escalante Esther M Location/Instructions:[facility], [address], Entr[address], Suite [facility], [id number] Date/Time:Provider/Resource: Mar 03:30 pmCI Injection Nurse Two Location/Instructions:[facility] [place], [address], 1st floor, [id number], [facility] [address] You Need to Schedule the Following Appointments Please make an appointment with your primary care provider within one week of being discharged. Someone Will Contact You Regarding These Appointments - Orthopedic Infectious Disease - Follow up with Dr. Calderon Tests Pending Bone Fluid cultures Procedures Performed U/S guided aspiration of right lower extremity Immunizations This Visit None Special Instructions Common Emergency Awareness Tips Call 911 immediately if: experiencing any of the warning signs and symptoms of stroke: B.E. F.A.S.T. Balance: is there trouble with walking or coordination Eyes: is there double vision or visual loss Face: Smile, do both sides of face move equally Arm: Raise arms, do both arms move equally Speech: Is speech slurred or inappropriate Time: Time is critical, call 911 immediately Heart Attack Signs Chest discomfort: Most heart attacks involve discomfort in the center of the chest and lasts more than a few minutes, or goes away and comes back. It can feel like uncomfortable pressure, squeezing, fullness or pain. Discomfort in upper body: Symptoms can include pain or discomfort in one or both arms, back, neck, jaw or stomach. Shortness of breath: With or without discomfort. Other signs: Breaking out in a cold sweat, nausea, or lightheaded. Remember, MINUTES DO MATTER. If you experience any of these heart attack warning signs, call -- to get immediate medical attention! Education Materials Living With Sickle Cell Disease Living with a long-term condition, such as sickle cell disease, can be a challenge. It can affect both your physical and mental health. You may not have total control over your condition. But proper care and treatment can help manage the effects of the disease so you can feel good and lead an active life. You can take steps to manage your condition and stay as healthy as possible. How does sickle cell disease affect me? Sickle cell disease can cause challenges that affect your quality of life. You may get sick more often as a result of organ damage and infections. Sometimes you may need to stay in the hospital. Learn how to recognize that you are not feeling well and that you may be getting sick. What actions can I take to manage my condition? The goals of treatment are to control your symptoms and prevent and treat problems. Work with your health care provider to create a treatment plan that works for you. Taking an active role in managing your condition can help you feel more in control of your situation. Ask about possible side effects of medicines that your health care provider recommends. Discuss howyou feel about having those side effects. Keeping a healthy lifestyle can help you manage your condition. This includes eating a healthy diet, getting enough sleep, and getting regular exercise. Sickle cell disease may affect your ability to take care of your basic needs. Tell your health careprovider if you have concerns about any of these needs: Access to food. Housing. Safe drinking water and other utilities. Safety in your home and community. Work or school. Transportation. Paying for health care. Your health care provider may be able to connect you with community resources that can help you. How to manage stress Living with sickle cell disease can be stressful. This disease can have a big impact on your mentalhealth. Talk with your health care provider about ways to reduce your stress or if you have concerns about your mental health. To cope with stress, try: Keeping a stress diary. This can help you learn what causes your stress to start (figure out your triggers) and how to control your response to those triggers. Spending time doing things that you enjoy, such as: Hobbies. Being outdoors. Spending time with friends and people who make you laugh. Doing yoga, muscle relaxation, deep breathing, or mindfulness practices. Expressing yourself through journal writing, art, crafting, poetry, or playing music. Staying positive about your health. Try to accept that you cannot control your condition perfectly. Follow these instructions at home: Medicines Take yzvb-axn-omufkka and prescription medicines only as told by your health care provider. If you were prescribed antibiotics, take them as told by your health care provider. Do not stop taking them even if you start to feel better. If you develop a fever, do not take medicines to reduce the fever right away. This could cover up another problem. Contact your health care provider. Eating and drinking Drink enough fluid to keep your urine pale yellow. Drink more in hot weather and during exercise. Limit or avoid drinking alcohol. Eat a balanced and nutritious diet. Eat plenty of fruits, vegetables, whole grains, and lean protein. Take vitamins and supplements as told by your health care provider. Traveling When traveling, keep these with you: Your medical information. The names of your health care providers. Your medicines. If you have to travel by air, ask about precautions you should take. Managing pain Work with your health care provider to create a pain management plan that works for you. The plan may include: Ways to reduce or manage your pain at home, such as: Using a heating pad. Taking a warm bath. Using healthy ways to distract you from the pain, such as hobbies or reading. Practicing ways to relax, such as doing yoga or listening to music. Getting massages. Doing exercises or stretches as told by a physical therapist. Tracking how pain affects your daily life functions. When to seek help. Who to contact and what to do in case of a pain emergency. General instructions Do not use any products that contain nicotine or tobacco. These products include cigarettes, chewing tobacco, and vaping devices, such as e-cigarettes. These lower blood oxygen levels. If you need help quitting, ask your health care provider. Consider wearing a medical alert bracelet. Use an zacarias or journal to track your symptoms, assess your level of pain and fatigue, and keep trackof your medicines. Avoid the following: High altitudes. Very high or low temperatures and big changes in temperature. Activities that will lower your oxygen levels, such as mountain climbing or doing exercise that takes a lot of effort. Stay up to date on: Your treatment plan. Learn as much as you can about your condition. Health screenings. This will help prevent problems or catch them early on. Vaccines. This will help prevent infection. Wash your hands often with soap and water to help prevent infections. Wash them for at least 20 seconds each time. Keep all follow-up visits. Regular follow-up with your health care provider can help you better manage your condition. Where to find support You can find help and support through: Talking with a therapist or taking part in support groups. Sickle Cell Disease Foundation of [place]: www.sicklecelldisease.org Where to find more information Centers for Disease Control and Prevention: www.cdc.gov [place] [employer] Hematology: www.hematology.org Contact a health care provider if: Your symptoms get worse. You have new symptoms. You have a fever. Get help right away if: You have a painful erection of the penis that lasts a long time (priapism). You become short of breath or are having trouble breathing. You have pain that cannot be controlled with medicine. You have any signs of a stroke. "BE FAST" is an easy way to remember the main warning signs: B - Balance. Dizziness, sudden trouble walking, or loss of balance. E - Eyes. Trouble seeing or a change in how you see. F - Face. Sudden weakness or loss of feeling of the face. The face or eyelid may droop on one side. A - Arms. Weakness or loss of feeling in an arm. This happens all of a sudden and most often on oneside of the body. S - Speech. Sudden trouble speaking, slurred speech, or trouble understanding what people say. T - Time. Time to call emergency services. Write down what time symptoms started. You have other signs of a stroke, such as: A sudden, very bad headache with no known cause. Feeling like you may vomit (nausea). Vomiting. Seizure. These symptoms may be an emergency. Get help right away. Call 911. Do not wait to see if the symptoms will go away. Do not drive yourself to the hospital. Also, get help right away if: You have strong feelings of sadness or loss of hope, or you have thoughts about hurting yourself orothers. Take one of these steps if you feel like you may hurt yourself or others, or have thoughts about taking your own life: Go to your nearest emergency room. Call 911. Call the National Suicide Prevention Lifeline at or 312. This is open 24 hours a day. Text the Crisis Text Line at 951255. Summary Proper care and treatment can help manage the effects of sickle cell disease so you can feel good and lead an active life. The goals of treatment are to control your symptoms and prevent and treat problems. Taking an active role in managing your condition can help you feel more in control of your situation. Work with your health care provider to create a pain management plan that works for you. Get medical help right away as told by your health care provider. This information is not intended to replace advice given to you by your health care provider. Make sure you discuss any questions you have with your health care provider. Document Revised: 01/04/2023 Document Reviewed: 01/04/2023 [employer] Patient Education 2022 [employer] Community-Acquired Pneumonia, Adult Pneumonia is a lung infection that causes inflammation and the buildup of mucus and fluids in the lungs. This may cause coughing and difficulty breathing. Community-acquired pneumonia is pneumonia that develops in people who are not, and have not recently been, in a hospital or other health care facility. Usually, pneumonia develops as a result of an illness that is caused by a virus, such as the commoncold and the flu (influenza). It can also be caused by bacteria or fungi. While the common cold andinfluenza can pass from person to person (are contagious), pneumonia itself is not considered contagious. What are the causes? This condition may be caused by: Viruses. Bacteria. Fungi. What increases the risk? The following factors may make you more likely to develop this condition: Being over age 65 or having certain medical conditions, such as: A long-term (chronic) disease, such as: chronic obstructive pulmonary disease (COPD), asthma, heartfailure, diabetes, or kidney disease. A condition that increases the risk of breathing in (aspirating) mucus and other fluids from your mouth and nose. A weakened body defense system (immune system). Having had your spleen removed (splenectomy). The spleen is the organ that helps fight germs and infections. Not cleaning your teeth and gums well (poor dental hygiene). Using tobacco products. Traveling to places where germs that cause pneumonia are present or being near certain animals or animal habitats that could have germs that cause pneumonia. What are the signs or symptoms? Symptoms of this condition include: A dry cough or a wet (productive) cough. A fever, sweating, or chills. Chest pain, especially when breathing deeply or coughing. Fast breathing, difficulty breathing, or shortness of breath. Tiredness (fatigue) and muscle aches. How is this diagnosed? This condition may be diagnosed based on your medical history or a physical exam. You may also havetests, including: Imaging, such as a chest X-ray or lung ultrasound. Tests of: The level of oxygen and other gases in your blood. Mucus from your lungs (sputum). Fluid around your lungs (pleural fluid). Your urine. How is this treated? Treatment for this condition depends on many factors, such as the cause of your pneumonia, your medicines, and other medical conditions that you have. For most adults, pneumonia may be treated at home. In some cases, treatment must happen in a hospital and may include: Medicines that are given by mouth (orally) or through an IV, including: Antibiotic medicines, if bacteria caused the pneumonia. Medicines that kill viruses (antiviral medicines), if a virus caused the pneumonia. Oxygen therapy. Severe pneumonia, although rare, may require the following treatments: Mechanical ventilation.This procedure uses a machine to help you breathe if you cannot breathe wellon your own or maintain a safe level of blood oxygen. Thoracentesis. This procedure removes any buildup of pleural fluid to help with breathing. Follow these instructions at home: Medicines Take llqt-yna-kxmhldi and prescription medicines only as told by your health care provider. Take cough medicine only if you have trouble sleeping. Cough medicine can prevent your body from removing mucus from your lungs. If you were prescribed antibiotics, take them as told by your health care provider. Do not stop taking the antibiotic even if you start to feel better. Lifestyle Do not drink alcohol. Do not use any products that contain nicotine or tobacco. These products include cigarettes, chewing tobacco, and vaping devices, such as e-cigarettes. If you need help quitting, ask your health careprovider. Eat a healthy diet. This includes plenty of vegetables, fruits, whole grains, low-fat dairy products, and lean protein. General instructions Rest a lot and get at least 8 hours of sleep each night. Sleep in a partly upright position at night. Place a few pillows under your head or sleep in a reclining chair. Return to your normal activities as told by your health care provider. Ask your health care provider what activities are safe for you. Drink enough fluid to keep your urine pale yellow. This helps to thin the mucus in your lungs. If your throat is sore, gargle with a mixture of salt and water 34 times a day or as needed. To make salt water, completely dissolve 1 tsp (36 g) of salt in 1 cup (237 mL) of warm water. Keep all follow-up visits. How is this prevented? You can lower your risk of developing community-acquired pneumonia by: Getting the pneumonia vaccine. There are different types and schedules of pneumonia vaccines. Ask your health care provider which option is best for you. Consider getting the pneumonia vaccine if: You are older than 65 years of age. You are 1965 years of age and are receiving cancer treatment, have chronic lung disease, or haveother medical conditions that affect your immune system. Ask your health care provider if this applies to you. Getting your influenza vaccine every year. Ask your health care provider which type of vaccine is best for you. Getting regular dental checkups. Washing your hands often with soap and water for at least 20 seconds. If soap and water are not available, use hand photolith operator. Contact a health care provider if: You have a fever. You have trouble sleeping because you cannot control your cough with cough medicine. Get help right away if: Your shortness of breath becomes worse. Your chest pain increases. Your sickness becomes worse, especially if you are an older adult or have a weak immune system. You cough up blood. These symptoms may be an emergency. Get help right away. Call 911. Do not wait to see if the symptoms will go away. Do not drive yourself to the hospital. Summary Pneumonia is an infection of the lungs. Community-acquired pneumonia develops in people who have not been in the hospital. It can be causedby bacteria, viruses, or fungi. This condition may be treated with antibiotics or antiviral medicines. Severe pneumonia may require a hospital stay and treatment to help with breathing. This information is not intended to replace advice given to you by your health care provider. Make sure you discuss any questions you have with your health care provider. Document Revised: 11/25/2022 Document Reviewed: 11/25/2022 [employer] Patient Education 2022 [employer] Patient Care team information Care Team Personnel Name: Tamara Cabrales Christine A Position: Pharmacist Schedule II Member Role: Pharmacy - Lifetime Name: MD Calderon Matthew S Position: Physician Member Role: Primary Care Provider Address: Address: [address] [place] [address] Name: MD Horacio, João Null Position: Physician - Ped Hem/Onc Member Role: Lifetime Relationship Address: Address: [address] [place] [address] Name: Tamara Savage Blaine Position: Pharmacist Member Role: Pharmacy - Lifetime Name: Tamara Toscano Kevin M Position: Pharmacist DRC Member Role: Pharmacy - Lifetime Address: Address: [facility] [address] [place] [address] [place] Name: Tamara Mauricio Kyle Position: Pharmacist Member Role: Pharmacy - Lifetime Address: Address: [address] [place] [address] Name: MD Gómez, Zach Montelongo Position: Physician - Hem/Onc Member Role: Admitting Physician Address: Address: [facility] [address] [place] [address] Name: R.E.S. Not Needed Position: Resident Care Team Related Persons Name: ELOISA CONNORS Address: home [address] [place] [phone] Name: BLAINE CONNORS Address: [facility] Address: home [address] [place] [phone] Name: SEKOU CONNORS Address: home [address] [place] [phone]
--- OUTSIDE RECORDS SUMMARY | 2024-01-18 09:34 | External Medical Summary | Continuity of Care Document ---
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 Discharge Disposition: Home or Self Care Attending Physician: DO Toro Manpreet Admitting Physician: MD Bienvenido, Marck Lindsay Allergies, Adverse Reactions, Alerts Substance Reaction Severity Status fentaNYL Numbness Moderate Active Functional Status 09/05/23 History of Fall in Last 3 Months Barba N o Presence of Secondary Diagnosis Barba Ye s Use of Ambulatory Aid Barba None/bedrest /nurse assist IV/Heparin Lock Fall Risk Barba Yes Gait/Transferring Fall Risk Barba Normal /bedrest/immobile Mental Status Fall Risk Barba Oriented t o own ability Barba Fall Risk Score 35 Barba Fall Risk Low Risk 09/05/23 Neurological Symptoms None ADLs Independent Facial Symmetry Symmetric Gait Steady Swallowing Difficulty None Level of Consciousness Neuro Alert Hallucinations Present None Speech Pattern Clear Immunizations Given and Recorded [...] 50 tab, PRN: fever/mild pain (1-3), [facility]acy: [id number] Start Date: 09/05/23 Status: Ordered azithromycin 500 mg oral tablet Start: 09/05/23 12:08:00 EST, 1 tab, PO, Daily, Disp# 5 tab, Please take until 09/09, Pharmacy: [facility] #[id number] Start Date: 09/05/23 Status: Ordered celecoxib 100 mg oral capsule Start: 08/09/23 12:48:00 EDT, 1 cap, PO, bid, Disp# 60 cap, Refills: 1, Pharmacy: [id number] Start Date: 08/09/23 Status: Ordered folic acid 1 mg oral tablet Start: 07/06/23 15:54:00 EDT, 1 tab, PO, Daily, Disp# 90 tab, Refills: 3, Pharmacy: [facility]acy #[id number] Start Date: 07/06/23 Status: Ordered hydroxyurea 500 mg oral capsule Start: 06/01/23 9:40:00 EDT, See Instructions, Disp# 90 cap, Refills: 5, on day 1 1000mg PO daily ,day 2 100mgPO daily , day 3 500 Mg PO daily then repeat OR as instructed by provider, Pharmacy: [facility]/pharmacy #[id number] Start Date: 06/01/23 Status: Ordered ibuprofen 400 mg oral tablet Start: 02/11/23 13:49:00 EDT, 2 tab, PO, q8h, Disp# 180 tab, Refills: 1, PRN: pain - mild (1-3), Pharmacy: [facility] #[id number] Start Date: 02/11/23 Status: Ordered naloxone 4 mg/0.1 mL nasal spray Start: 02/11/23 13:49:00 EDT, 4 mg =, intranasal, ONCE, Disp# 2 each, Note to Pharmacy: Use for overdose of opiates or not breathing., Pharmacy: [facility] #[id number] Start Date: 02/11/23 Status: Ordered oxyCODONE 10 mg oral tablet Start: 09/05/23 12:07:00 EST, 20 mg =, PO, q4h, Disp# 60 tab, Refills: 0, PRN: pain - moderate (4-6), Pharmacy: [facility] #[id number] Start Date: 09/05/23 Status: Ordered Mental Status 09/03/23 Primary Language Thai Problem List Condition Confirmation Course Effective Dates Status Health St atus Informant Chest pain Confirmed Active Headache Confirmed Active 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 Trigeminal neuralgia Confirmed Active Diagnosis Diagnosis Type Effective Dates Health Status inical Service Informant Sickle cell crisis Discharge Diagnosis 09/02/23 Non-Specified Pneumonia Discharge Diagnosis 09/05/23 Sickle cell-hemoglobin Han disease Discharge Diagnosis 09/05/23 Chest pain Discharge Diagnosis 09/05/23 Procedures Procedure Date Related Diagnosis Body Site Status Biopsy Completed None Completed Results Laboratory List Name Date Complete Blood Count w Differential (CBC w Platelets and Diff) 09/05/23 Comprehensive Metabolic Panel (CMP) 08/12 04/02 Lactate Dehydrogenase (LDH) 09/05/23 Magnesium Level (Mg Level) 09/05/23 Phosphorus Level (PO4 Level) 09/05/23 Reticulocyte Panel 09/05/23 Urine Analysis w/ Reflexed Microscopic. (UA w/ Reflexed Microscopic.) 09/04/23 Complete Blood Count w Differential (CBC w Platelets and Diff) 09/04/23 Comprehensive Metabolic Panel (CMP) 08/12 03/02 Lactate Dehydrogenase (LDH) 09/04/23 Magnesium Level (Mg Level) 09/04/23 Phosphorus Level (PO4 Level) 09/04/23 Reticulocyte Panel 09/04/23 [facility] Spec on Hold in Laboratory (EXTRA M ISC) 09/03/23 Specimen Type (SPECIMEN TYPE) 09/03/23 Reticulocyte Panel 09/03/23 Complete Blood Count w Differential (CBC w Platelets and Diff) 09/03/23 Comprehensive Metabolic Panel (CMP) 08/12 01/31 Lactate Dehydrogenase (LDH) 09/03/23 Magnesium Level (Mg Level) 09/03/23 Phosphorus Level (PO4 Level) 09/03/23 COVID-19 Coronavirus Same Day 09/03/23 Added on Lab order 09/02/23 Haptoglobin (HAPTOGLOBIN) 09/02/23 Hemoglobin S. (HEMOGLOBIN, S) 09/02/23 Most recent to oldest [Reference Range]: 1 2 3 [facility] Specimen Specimen available f rom 0 to 3 days based on specimen stability. Please use addon order if you wish to order testing. (09/03/23 4:24 PM) eGFR CKD-EPI [>60 mL/min/1.73 m2] >90 mL/min/1.73 m2 (09/05/23 9:57 AM) >90 mL/min/1.73 m2 (09/04/23 5:13 AM) >90 mL/min/1.73 m2 (09/03/23 8:12 AM) Haptoglobin, [30-200 mg/dL] <10 mg/dL 1 *LOW* (09/02/23 7:40 PM) Request of Physician Hemoglobin S percen tage. Haptoglobin (09/02/23 7:41 PM) Action Taken YES (09/02/23 7:41 PM) Imm. Retics [5.0-25.0 %] 36.9 % *HI* (09/05/23 9:57 AM) 45.9 % *HI* (09/04/23 5:13 AM) 50.8 % *HI* (09/03/23 2:02 PM) Estimated CrCl 117.41 mL/min (09/05/23 10:55 AM) 111.82 mL/min (09/04/23 6:28 AM) 114.55 mL/min (09/03/23 9:19 AM) Retic Hgb [30.8-36.6 pg] 21.9 pg *LOW* (09/05/23 9:57 AM) 23.6 pg *LOW* (09/04/23 5:13 AM) 24.4 pg *LOW* (09/03/23 2:02 PM) MPV [9.0-12.2 fL] 9.4 fL (09/05/23 9:57 AM) 10.7 fL (09/04/23 5:13 AM) 10.1 fL (09/03/23 8:12 AM) Immature Gran% 0.5 % (09/05/23 9:57 AM) 0.5 % (09/04/23 5:13 AM) 0.8 % (09/03/23 8:12 AM) Neut% 69.1 % (09/05/23 9:57 AM) 57.2 % (09/04/23 5:13 AM) 64.5 % (09/03/23 8:12 AM) Lymph% 20.3 % (09/05/23 9:57 AM) 32.8 % (09/04/23 5:13 AM) 22.6 % (09/03/23 8:12 AM) Reagan% 8.6 % (09/05/23 9:57 AM) 8.2 % (09/04/23 5:13 AM) 11.5 % (09/03/23 8:12 AM) Baso% 0.3 % (09/05/23 9:57 AM) 0.5 % (09/04/23 5:13 AM) 0.3 % (09/03/23 8:12 AM) Eos% 1.2 % (09/05/23 9:57 AM) 0.8 % (09/04/23 5:13 AM) 0.3 % (09/03/23 8:12 AM) Immat Gran, Abs [0-0.4 K/uL] 0.07 K/uL (09/05/23 9:57 AM) 0.06 K/uL (09/04/23 5:13 AM) 0.09 K/uL (09/03/23 8:12 AM) Neut, Abs [2.0-7.7 K/uL] 9.04 K/uL *HI* (09/05/23 9:57 AM) 7.29 K/uL (09/04/23 5:13 AM) 7.64 K/uL (09/03/23 8:12 AM) Lymph, Abs [1.0-3.4 K/uL] 2.66 K/uL (09/05/23 9:57 AM) 4.17 K/uL *HI* (09/04/23 5:13 AM) 2.68 K/uL (09/03/23 8:12 AM) Reagan, Abs [0-1.0 K/uL] 1.12 K/uL *HI* (09/05/23 9:57 AM) 1.05 K/uL *HI* (09/04/23 5:13 AM) 1.36 K/uL *HI* (09/03/23 8:12 AM) Baso, Abs [0-0.1 K/uL] 0.04 K/uL (09/05/23 9:57 AM) 0.06 K/uL (09/04/23 5:13 AM) 0.04 K/uL (09/03/23 8:12 AM) Eos, Abs [0-0.5 K/uL] 0.16 K/uL (09/05/23 9:57 AM) 0.10 K/uL (09/04/23 5:13 AM) 0.03 K/uL (09/03/23 8:12 AM) Type of Diff: AUTO (09/05/23 9:57 AM) AUTO (09/04/23 5:13 AM) AUTO (09/03/23 8:12 AM) RDW [11.5-14.2 %] 17.8 % *HI* (09/05/23 9:57 AM) 18.3 % *HI* (09/04/23 5:13 AM) 18.2 % *HI* (09/03/23 8:12 AM) Anion Gap [5-14 mmol/L] 11 mmol/L (09/05/23 9:57 AM) 10 mmol/L (09/04/23 5:13 AM) 9 mmol/L (09/03/23 8:12 AM) Alb [3.5-5.2 g/dL] 4.0 g/dL (09/05/23 9:57 AM) 3.7 g/dL (09/04/23 5:13 AM) 4.0 g/dL (09/03/23 8:12 AM) Alk Phos [40-130 unit/L] 68 unit/L (09/05/23 9:57 AM) 70 unit/L (09/04/23 5:13 AM) 73 unit/L (09/03/23 8:12 AM) ALT [0-41 unit/L] 12 unit/L (09/05/23 9:57 AM) 12 unit/L (09/04/23 5:13 AM) 13 unit/L (09/03/23 8:12 AM) AST [0-40 unit/L] 29 unit/L (09/05/23 9:57 AM) 30 unit/L (09/04/23 5:13 AM) 26 unit/L (09/03/23 8:12 AM) Bili (u) [NEG] NEGATIVE (09/04/23 5:02 AM) BUN [6-23 mg/dL] 8 mg/dL (09/05/23 9:57 AM) 8 mg/dL (09/04/23 5:13 AM) 6 mg/dL (09/03/23 8:12 AM) Ca [8.4-10.2 mg/dL] 8.9 mg/dL (09/05/23 9:57 AM) 8.6 mg/dL (09/04/23 5:13 AM) 8.7 mg/dL (09/03/23 8:12 AM) Cl- [98-107 mmol/L] 101 mmol/L (09/05/23 9:57 AM) 100 mmol/L (09/04/23 5:13 AM) 105 mmol/L (09/03/23 8:12 AM) HCO3 [22-29 mmol/L] 27 mmol/L (09/05/23 9:57 AM) 27 mmol/L (09/04/23 5:13 AM) 27 mmol/L (09/03/23 8:12 AM) Cret [0.70-1.30 mg/dL] 0.80 mg/dL (09/05/23 9:57 AM) 0.84 mg/dL (09/04/23 5:13 AM) 0.82 mg/dL (09/03/23 8:12 AM) BF Source THROAT 2 (09/03/23 4:24 PM) Glu [74-109 mg/dL] 89 mg/dL 3 (09/05/23 9:57 AM) 76 mg/dL 4 (09/04/23 5:13 AM) 80 mg/dL 5 (09/03/23 8:12 AM) Hct [39-48 %] 25.9 % *LOW* (09/05/23 9:57 AM) 27.9 % *LOW* (09/04/23 5:13 AM) 27.0 % *LOW* (09/03/23 8:12 AM) Hgb [13.0-17.0 g/dL] 8.6 g/dL *LOW* (09/05/23 9:57 AM) 9.5 g/dL *LOW* (09/04/23 5:13 AM) 8.8 g/dL *LOW* (09/03/23 8:12 AM) Hb S [NOPR %] 81.3 % *Abnormal* (09/02/23 7:40 PM) K [3.5-5.1 mmol/L] 3.8 mmol/L (09/05/23 9:57 AM) 3.7 mmol/L (09/04/23 5:13 AM) 4.1 mmol/L (09/03/23 8:12 AM) Ketones [NEG mg/dL] NEGATIVE mg/dL (09/04/23 5:02 AM) LDH [135-250 unit/L] 480 unit/L *HI* (09/05/23 9:57 AM) 491 unit/L 6 *HI* (09/04/23 5:13 AM) 441 unit/L *HI* (09/03/23 8:12 AM) Leuk Est [NEG] NEGATIVE (09/04/23 5:02 AM) MCH [28-33 pg] 23.0 pg *LOW* (09/05/23 9:57 AM) 23.5 pg *LOW* (09/04/23 5:13 AM) 22.6 pg *LOW* (09/03/23 8:12 AM) MCHC [32-36 g/dL] 33.2 g/dL (09/05/23 9:57 AM) 34.1 g/dL (09/04/23 5:13 AM) 32.6 g/dL (09/03/23 8:12 AM) MCV [81-96 fL] 69.3 fL *LOW* (09/05/23 9:57 AM) 68.9 fL *LOW* (09/04/23 5:13 AM) 69.2 fL *LOW* (09/03/23 8:12 AM) Mg [1.6-2.6 mg/dL] 1.7 mg/dL (09/05/23 9:57 AM) 1.6 mg/dL (09/04/23 5:13 AM) 1.7 mg/dL (09/03/23 8:12 AM) Na [136-145 mmol/L] 139 mmol/L (09/05/23 9:57 AM) 137 mmol/L (09/04/23 5:13 AM) 141 mmol/L (09/03/23 8:12 AM) Nitrite (u) [NEG] NEGATIVE (09/04/23 5:02 AM) PO4 [2.5-4.5 mg/dL] 3.7 mg/dL (09/05/23 9:57 AM) 4.3 mg/dL (09/04/23 5:13 AM) 3.6 mg/dL (09/03/23 8:12 AM) Plts [150-350 K/uL] 150 K/uL (09/05/23 9:57 AM) 153 K/uL (09/04/23 5:13 AM) 166 K/uL (09/03/23 8:12 AM) RBC [4.40-5.60 M/uL] 3.74 M/uL *LOW* (09/05/23 9:57 AM) 4.05 M/uL *LOW* (09/04/23 5:13 AM) 3.90 M/uL *LOW* (09/03/23 8:12 AM) Retics (abs) [16.7-96.7 K/uL] 227.0 K/uL *HI* (09/05/23 9:57 AM) 249.5 K/uL *HI* (09/04/23 5:13 AM) 224.8 K/uL *HI* (09/03/23 2:02 PM) Retic (%) [0.40-2.05 %] 6.07 % *HI* (09/05/23 9:57 AM) 6.16 % *HI* (09/04/23 5:13 AM) 5.55 % *HI* (09/03/23 2:02 PM) T Bili [0.0-1.2 mg/dL] 1.0 mg/dL (09/05/23 9:57 AM) 1.3 mg/dL *HI* (09/04/23 5:13 AM) 0.9 mg/dL (09/03/23 8:12 AM) Prot [6.4-8.3 g/dL] 7.1 g/dL (09/05/23 9:57 AM) 6.6 g/dL (09/04/23 5:13 AM) 6.9 g/dL (09/03/23 8:12 AM) Appear (u) CLEAR (09/04/23 5:02 AM) Color (u) YELLOW (09/04/23 5:02 AM) Glu (u) [NEG mg/dL] NEGATIVE mg/dL (09/04/23 5:02 AM) Hgb (u) [NEG] NEGATIVE (09/04/23 5:02 AM) pH (u) [5.0-8.0 unit] 6.0 unit (09/04/23 5:02 AM) Prot (u) [NEG mg/dL] NEGATIVE mg/dL (09/04/23 5:02 AM) Urobili [0.1-1.0 EU/dL] 0.1-1.0 EU/dL (09/04/23 5:02 AM) SG [1.005-1.030] 1.008 (09/04/23 5:02 AM) WBC [4.0-10.4 K/uL] 13.09 K/uL 7 *HI* (09/05/23 9:57 AM) 12.73 K/uL 8 *HI* (09/04/23 5:13 AM) 11.84 K/uL 9 *HI* (09/03/23 8:12 AM) COVID-19 Coronavirus PCR [COV19N] COVID 19 virus not detected 10 (09/03/23 12:53 AM) 1Result Comment: HEMOLYZED SPECIMEN 2Result Comment: ESWAB EXTRA 3Result Comment: ADA recommendation for FASTING Serum/Plasma Glucose: Normal: 70-100 mg/dL Prediabetes: 100-125 mg/dL Diabetes: 126 mg/dL or higher 4Result Comment: ADA recommendation for FASTING Serum/Plasma Glucose: Normal: 70-100 mg/dL Prediabetes: 100-125 mg/dL Diabetes: 126 mg/dL or higher 5Result Comment: ADA recommendation for FASTING Serum/Plasma Glucose: Normal: 70-100 mg/dL Prediabetes: 100-125 mg/dL Diabetes: 126 mg/dL or higher 6Result Comment: HEMOLYZED SPECIMEN 7Result Comment: ADJUSTED FOR NUCLEATED RBC'S 8Result Comment: ADJUSTED FOR NUCLEATED RBC'S 9Result Comment: ADJUSTED FOR NUCLEATED RBC'S 10Result Comment: Test results reported to [place] Dept of Health This assay has been granted an Emergency Use Authorization (EUA) by the [place] Food and drug Administration: Specimen source Nasopharyngeal. The performance of alexy assay (NeuMoDx by PCR) has been verified by the [facility]. Orders for Microbiology Reports Name Date Throat Culture for Group A Strep (CULTUR E, GRP A STREP) 09/03/23 Respiratory Pathogen Panel, by PCR (RVP) 09/03/23 Strep A Rapid Antigen (Rapid Strep) 08/12 01/31 Blood Culture (Aerobic AND Anaerobic) Blood Culture (Aerobic AND Anaerobic) Microbiology Reports TEST:Strep A Ag STATUS:Auth (Verified) BODY SITE: SOURCE:Throat COLLECTED DATE/TIME:09/03/23 8:30 PM Strep Ag Direct Exam NEGATIVE TEST:Throat.Scr STATUS:Auth (Verified) BODY SITE: SOURCE:Throat COLLECTED DATE/TIME:09/03/23 8:30 PM Status FINAL 09/05/2023 TEST:Respiratory Virus Panel, by PCR STATUS:Auth (Verified) BODY SITE: SOURCE:Nasal/Pharyngeal COLLECTED DATE/TIME:09/03/23 4:24 PM Multiplex PCR Negative for: Severe Acute Respiratory Syndrome Coronavirus (SARS-CoV-2/COVID-19), Influenza A and B, Adenovirus, Bordetella pertussis, Bordetella parapertussis, Chlamydophila pneumoniae, Coronavirus (229E,HKU1,NL63,OC43), Human metapneumovirus, Mycoplasma pneumoniae, Parainfluenza Types 1,2,3, and 4, Respiratory syncytial virus, and Rhinovirus/Enterovirus. TEST:Blood.Cx STATUS:Unauthenticated BODY SITE: SOURCE:Blood COLLECTED DATE/TIME:09/03/23 3:25 PM Culture NO GROWTH IN 4 DAYS TEST:Blood.Cx STATUS:Unauthenticated BODY SITE: SOURCE:Blood COLLECTED DATE/TIME:09/03/23 3:23 PM Culture NO GROWTH IN 4 DAYS Radiology Reports * Exam Date Time Procedure Performing Provider Status 09/03/23 10:36 PM XR Chest 1 View Myranda Perdomo; David pichardo Notes: (XR Chest 1 View) Reason For Exam: sickle cell patient admitted for pain crisis; now febrile w/ some chest pain... please eval for any development of infiltrates to suggest ACS XR Chest 1 View EXAMINATION: XR Chest 1 View CLINICAL HISTORY: sickle cell patient admitted for pain crisis; now febrile w/ some chest pain... please eval for anydevelopment of infiltrates to suggest ACS COMPARISON: Plain radiograph dated 09/03/2023 and 04/30/2023. FINDINGS: Portable erect AP view the chest. Normal cardiomediastinal silhouette and pulmonary vasculature. Increased right basilar opacities. No focal consolidative opacity. No pneumothorax or pleural effusion. No acute osseous abnormality. IMPRESSION: Right basilar opacities favoring atelectasis. FINAL ATTENDING IMPRESSION: The findings could be on the basis of infection. Dr. Billy Tejada is the dictating resident. Finalized reports status indicates that the attending has reviewed the images and report and agrees with the interpretation. Preliminary report status should be regarded as NOT interpreted by the attending radiologist. Workstation ID: [id number] Final Dictated by:MD Tejada Lawrence V Dictated DT/TM:09/04/2023 3:41 Resident:MD Tejada Lawrence V Signed by:MD Monroy David H Signed (Electronic Signature):09/04/2023 3:40 a * Exam Date Time Procedure Performing Provider Status 09/03/23 2:16 AM XR Chest 1 View Fela Smith; Final Notes: (XR Chest 1 View) Reason For Exam: chest pain/sickle cell crisis/evaluate acute chest vs infection XR Chest 1 View EXAMINATION: XR Chest 1 View CLINICAL HISTORY: chest pain/sickle cell crisis/evaluate acute chest vs infection. COMPARISON: 04/30/2023 and 09/17/2022. TECHNIQUE: AP portable chest radiograph taken at 01:56 hours. FINDINGS: Lines: None. Normal size cardiac silhouette. Normal pulmonary vascularity. Hypoventilation. Mild bibasilar patchy opacities are noted, most likely representing atelectasis. No pleural effusion or pneumothorax. Minor scoliotic curvatures in the thoracic spine, stable. IMPRESSION: Hypoventilatory changes with bibasilar atelectasis. Workstation ID: [id number] Final Dictated by:MD Post Mark Dictated DT/TM:09/03/2023 7:33 Signed by:MD Post Mark Signed (Electronic Signature):09/03/2023 7:32 a Vital Signs Most recent to oldest [Reference Range]: 1 2 3 Height 166 cm (09/02/23 11:44 PM) 170.2 cm (09/02/23 6:47 PM) Patient Weight 58.8 kg (09/04/23 4:56 AM) 58.0 kg (09/02/23 11:44 PM) 58.3 kg (09/02/23 6:47 PM) Body Mass Index 21.05 kg/m2 (09/02/23 11:44 PM) 20.13 kg/m2 (09/02/23 6:47 PM) Temperature [36.5-37.9 DegC] 37.2 DegC (09/05/23 11:59 AM) 37.0 DegC (09/05/23 5:39 AM) 37.7 DegC (09/04/23 10:24 PM) Heart Rate 72 bpm (09/05/23 11:59 AM) 79 bpm (09/05/23 5:39 AM) 98 bpm (09/04/23 10:24 PM) Respiratory Rate 18 br/min (09/05/23 11:59 AM) 18 br/min (09/05/23 5:39 AM) 18 br/min (09/04/23 10:24 PM) Blood Pressure 98/63mmHg (09/05/23 11:59 AM) 97/58mmHg (09/05/23 5:39 AM) 120/67mmHg (09/04/23 10:24 PM) Mean Blood Pressure 71 mmHg (09/05/23 11:59 AM) 68 mmHg (09/05/23 5:39 AM) 80 mmHg (09/04/23 10:24 PM) Cuff Pulse Pressure 35 mmHg (09/05/23 11:59 AM) 39 mmHg (09/05/23 5:39 AM) 53 mmHg (09/04/23 10:24 PM) BP Location # 1 Left Arm (09/05/23 11:59 AM) Left Arm (09/05/23 5:39 AM) Left Arm (09/04/23 10:24 PM) Social History Social History Type Response Smoking Status Never smoked cigaret hilda Sex Male History and physical note * MD Faria Adam N: MODIFY MD Faria Adam N: MODIFY Event Display: H&P Authored Date: Name:DONTRELL CONNORS Patient Number:[id number] :2000 Date of Service:09/03/2023 Chief Complaint It hurts all over. 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 He recentlyhad URI with symptoms of congestion, sore throat that lasted about a week andresolved a few days ago. Has been drinking a lot of water. Has not used alcohol and no recentintense exercise. Has been taking home Celecoxib and oxycodone with minimal relief. Does have some generalized chest pain, but this is usual with previous sickle cell crisis episodes and goes along with generalized pain. No SOB, no cough. Rest of ROS as below. In the ED VSS. Labs notable for mild leukocytosis of 14k, Hgb 9.5, which is below recent baseline of 11-12. Treated with IV fluids and narcotics, but pain persisted and admit requested. Review of Systems Positive as above. No fever or chills. No headaches or changes in vision. No palpitations. No SOB. No Abd pain. No NVD. All other systems negative except noted above. Physical Exam Vitals & Measurements T:37.0C TMIN:36.5C TMAX:37.0C HR:76(Monitored) RR:20 BP:111/68 SpO2:96% Oxygen Therapy:Room air WT:58.0kg Appearance: NAD, Appears stated age and is well nourished. Eyes: anicteric, conjunctiva without injection, ENT: MMM. Oral cavity non-erythematous, Supple CV: RRR, no murmur, gallops, rubs. No noted edema, no elevated JVP Pulm: CTA B/L with no wheezes, rales, rhonchi. No increased WOB. On RA. No clubbing/cyanosis GI: Soft, no tenderness to palpation, no guarding or rebound. No palpable hepatosplenomegaly. Normoactive BS. Neuro: No nystagmus. PRRTL BL. Intact reflexes BL in upper and lower Exts. No facial asymmetry at rest or with activation. No focal deficits. AOx3 MSK: FROM, strength 5/5 in all extremities, . Psych: Appropriate and cooperative. Congruent affect with mood. Good insight and judgement. Skin: Warm and dry. No rash or lesion. Assessment/Plan Sickle cell crisis Per generalized body/bone pain, leukocytosis, decreased Hgb from baseline. Recent URI likely the trigger. Lowconcern for acute chest since chest pain not pleuritic and part of generalized body painand O2 sats wnl. - Double home oxycodone dose to 10mg q4h while inhouse - IV hydromorphone 0.5mg q4h - Celecoxib - 1/2NS @150cc/h - CXR to rule out focal disease - Labs qAm. Hgb S added to initial labs. - Continue home hydroxyurea at 750mg daily (instead of home alternating doses. Can resume home doseat time of discharge). Diet: regular DVT PPX: enoxaparin Code: full Attestation Patient seen and examined independently, but discussed with Dr. Rea. Diagnostics reviewed. Agree with above history,exam, assessment, plan. Young gentleman with sickle celldisease presentswithdiffuse pain consistent withsickle cell pain crisis. He does report some chest pain, but agree with above thatlow likelihood of ACS (CXR pending). Exam is unremarkable as above -he appears uncomfortabledue to pain but not in severe distress. Provide supportivetreatment withIV fluids, analgesics, and continuehome hydroxyurea. Problem List/Past Medical History Ongoing Chest pain Headache Ligament laxity Sickle cell-hemoglobin Han disease Trigeminal neuralgia Procedure/Surgical History NoneBiopsy Medications Inpatient acetaminophen(Tylenol), 650 mg= 2 tab, PO, q6h, PRN celecoxib, 100 mg= 1 cap, PO, bid diphenhydrAMINE(Benadryl), 25 mg= 1 tab, PO, q6h, PRN enoxaparin, 40 mg= 0.4 mL, subQ, q24h folic acid, 1 mg= 1 tab, PO, Daily HYDROmorphone, 0.5 mg= 0.5 mL, IV Push, q3h, PRN HYDROmorphone(Dilaudid), 1 mg= 1 mL, IV Push, q4h, PRN ondansetron(Zofran), 4 mg= 2 mL, IV Push, q6h, PRN oxyCODONE, 10 mg= 1 tab, PO, q4h, PRN Sodium Chloride 0.45% 1,000 mL(NaCl 0.45% 1,000 mL), 1000 mL, IV Fluid Home acetaminophen(Tylenol 325 mg oral tablet), 650 mg= 2 tab, PO, q4h, PRN celecoxib(celecoxib 100 mg oral capsule), 1 cap, PO, bid folic acid(folic acid 1 mg oral tablet), 1 mg= 1 tab, PO, Daily, 3 refills hydroxyurea(hydroxyurea 500 mg oral capsule), See Instructions, 5 refills ibuprofen(ibuprofen 400 mg oral tablet), 800 mg= 2 tab, PO, q8h, PRN, 1 refills naloxone(naloxone 4 mg/0.1 mL nasal spray), 4 mg, intranasal, ONCE oxyCODONE(oxyCODONE 5 mg oral tablet), 5 mg= 1 tab, PO, q6h, PRN Allergies fentaNYL (Moderate)Numbness Social History Smoking Status Never smoked cigarettes Tobacco - Denies Tobacco Use Use:Never smoker Family History Family history is negative Immunizations Vaccine Date Status pneumococcal 23-valent vaccine 06/01/2023 Given influenza virus vaccine, inactivated 11/06/2019 Given meningococcal group B vaccine 02/24/2017 Recorded meningococcal group B vaccine 12/18/2016 Given Comments : Other : order placed prior to patient arrival influenza virus vaccine, inactivated 12/18/2016 Given pneumococcal 13-valent vaccine 06/05/2016 Given Comments : Other : ORDERED ENTERED AT TIME OF VISIT pneumococcal 23-valent vaccine 03/05/2015 Given meningococcal conjugate vaccine 03/05/2015 Given influenza virus vaccine, inactivated 08/24/2013 Recorded hepatitis A pediatric vaccine 05/27/2012 Recorded meningococcal conjugate vaccine 05/07/2010 Recorded tetanus/diphtheria/pertuss, acel (Tdap) 05/07/2010 Recorded hepatitis A pediatric vaccine 03/24/2010 Recorded varicella virus vaccine 12/03/2006 Recorded poliovirus vaccine, inactivated 01/03/2004 Recorded measles/mumps/rubella virus vaccine 12/05/2003 Recorded influenza virus vaccine, inactivated 09/04/2002 Recorded diphtheria/tetanus/pertuss, acel (DTaP) 09/14/2000 Recorded poliovirus vaccine, inactivated 09/14/2000 Recorded varicella virus vaccine 06/04/2000 Recorded measles/mumps/rubella virus vaccine 06/04/2000 Recorded diphtheria/tetanus/pertuss, acel (DTaP) 02/20/2000 Recorded diphtheria/tetanus/pertuss, acel (DTaP) 1999 Recorded poliovirus vaccine, inactivated 1999 Recorded diphtheria/tetanus/pertuss, acel (DTaP) 1999 Recorded poliovirus vaccine, inactivated 1999 Recorded Electronic Signature on File Electronically Reviewed/Signed by: Emmanuel Rea MD Author Signature Dt/Tm:09/03/2023 01:27 AM Resident Division of Hematology Oncology Electronically Reviewed/Signed by: Marck Faria MD Cosigner Signature Dt/Tm: 09/03/2023 05:50 AM Division of Hematology Oncology MJ .D/C Summary * ASHLEY Fitzgerald Sara Lynn: PERFORM, MODIFY Event Display: .D/C Summary Authored Date: [id number] [facility] For medical concerns, call: . Address: [address] [place] [address] MONSE CHOWDHURY [id number] (MOBILE) :2000 . Date of Admission:09/02/2023 Date of Discharge:09/05/2023 Physician:DO Toro Manpreet Service:Hematology/Oncology Discharge Disposition:Home Primary Care Provider/Phone: MD SINGH MATTHEW S (BUSINESS) [phone] (FAX BUSINESS) Principal Diagnosis: Pneumonia Other Diagnoses: Sickle cell crisis Chest pain Sickle cell-hemoglobin Han disease Major Tests and Procedures: (09/03/2023 02:16 EST XR Chest 1 View) IMPRESSION: Hypoventilatory changes with bibasilar atelectasis. (09/03/2023 22:36 EST XR Chest 1 View) IMPRESSION: Right basilar opacities favoring atelectasis. Brief History of Present Illness: Mr. Dontrell Connors is a pleasant 23 year old malewith sickle cell disease (Hgb S/Han) presented to the ED on09/02with a few days of worsening generalized bone pain. Hospital Course: Mr. Dontrell Connors is a pleasant 23 year old malewith sickle cell disease (Hgb S/Han) presented to the ED on09/02with a few days of worsening generalized bone pain. He reportedly had a recentURI with symptoms of congestion andsore throat, that lasted about a week, with quick resolutio n.He also reported some generalized chest pain, but this is usual with previous sickle cell crisis episodes, and goes along with generalized pain. Labs notable for mild leukocytosis of 14k, Hgb 9.5, which is below recent baseline of 11-12. Initially he was treated with IV fluids and narcotics, but pain persisted and request to beadmitted. Once admitted further workup showed Hgb S 81.3, T-Bili1.3, Retic Panal showed 5.00%; 45.6 Imm; 205.0 ABS; now 5.55%, 50.8 Imm, and 224.8 ABS. Chest X-raywithout evidence of Acute Chest but did show bibasilar atelectasis. He was encourage to use ISB while awake and pain management included: Oxycodone 20mg Q4hrs; Celecoxib 100mg BID; IV hydromorphone 0.5mg q3h, and IV hydromorphone 1mg q4h for breakthrough pain. His pain was well controlled, however;he developed fevers on the evening of 09/03, with TMAX of 38.4. Infectious workup was completed andnegative other than a repeat chest x- ray showing questionable Right-Sided PNA, however; radiologistwas favoring bibasilar atelectasis. Due to persistent fevers he was started on both Azithromycin and Ceftriaxone IV. He continued to maintain optimal O2 saturation, in the high 90's, on room air. On 09/04 he was trailed off IV pain medications. On 09/05 he was transitioned to PO ABX, and medically stable for discharge. He was discharged the afternoon of09/05 with close follow up with Dr. Baker and Primary Care Physician. Exam on Discharge: Vitals & Measurements: T:37.2C TMIN:37.0C TMAX:38.4C HR:72(Monitored) RR:18 BP:98/63SpO2:97% Oxygen Therapy:Room air General:Male sitting up in bed.Awake, alert, andOriented x4. No acute distress. Well developed, hydrated, and nourished. HEENT:Normocephalic. No visible masses. Sclera white, w/o any discoloration. Conjunctiva are clearwithout erythema, exudates, or hemorrhage. No nystagmus. Eyelids are normal in appearance, without swelling or lesions. Pupils equal, round, reactivebilaterally.Oral mucosa is pink and moist, with good dentation. Tongue normal in appearance without lesions and with good symmetrical movement. N buccal nodules and lesions present. Pharynx with erythemawithout swelling or exudates. Neck:Supple w/o adenopathy. No JVD. Heart: Regularheart rate and rhythm.No audible murmurs. S1 and S2 are heard and are normal intensity. Lungs:Chest wall is symmetric and without deformity. No signs of respiratory distress. Lung sounds arediminished in all lobes bilaterally without rales, rhonchi, or wheezes. Abdomen:Normoactive bowel sounds present in all four quadrants.Abdomen soft, symmetric, non-tender, no organomegaly, or distention. Skin:Skin is warm, dry, and intact. No rashesorlesions. Extremities:Upper and lower extremities are normal in appearance without tenderness or deformity.No swelling or erythema. Full range of motion is noted to all joints. Muscle strength is 5/5 bilaterally. Capillary refill is less than 3 seconds in all extremities. Pulses palpable. Neuro:Patient sleeping, but arousable.Oriented x4, with normal speech.Motor function is normal withmuscle strength 5/5 bilaterally to upper and lower extremities. Sensation is intact throughout. Memory is normal and thought process is intact. No focal deficits. Psych:Appropriate mood and affect.Good judgement and insight.No visual or auditory hallucinations. No suicidal or homicidal ideation. IV Access:PIV Non-tender; dressing clean, dry, and intact. Discharge Medications: 1.Ibuprofen (ibuprofen 400 mg oral tablet) 800 mg (2 tab) by mouth every 8 hours, as needed for pain - mild (1-3). 2.Naloxone (naloxone 4 mg/0.1 mL nasal spray) 4 mg in the nose once. 3.Hydroxyurea (hydroxyurea 500 mg oral capsule) See Instructions . on day 1 1000mg PO daily , day 2 100mgPO daily , day 3 500 Mg PO daily then repeat OR as instructed by provider. 4.Folic acid (folic acid 1 mg oral tablet) 1 mg (1 tab) by mouth once daily. 5.Celecoxib (celecoxib 100 mg oral capsule) 1 cap by mouth 2 times daily. 6.Acetaminophen (acetaminophen 500 mg oral tablet) 1,000 mg (2 tab) by mouth every 8 hours, as needed for fever/mild pain (1-3). 7.OxyCODONE (oxyCODONE 10 mg oral tablet) 20 mg by mouth every 4 hours, as needed for pain - moderate (4-6). 8.Azithromycin (azithromycin 500 mg oral tablet) 500 mg (1 tab) by mouth once daily. Please take until 09/09. Allergies and Sensitivities: fentaNYL (Moderate)Numbness Tests Pending: None Scheduled Appointments: Date/Time:Provider/Resource: Dec 03:00 pmLab/Specimen Location/Instructions:[facility], [address], 1[address] floor, [address], [place] [address] Date/Time:Provider/Resource: Dec 04:00 pmSickle Cell Provider Location/Instructions:[facility], [address], 1[address], [address], [place] [address] Care Instructions: DISCHARGE INSTRUCTIONS: General Instructions 1. Please take temperature 3 - 4 times per day or if you don't feel well or experience the chills, call immediately if temperature is greater than 100.4 2. Eat as much as possible to keep up your nutrition. 3. Drink plenty of fluids. 4. Call for anynew orworsening symptoms includingbut not limited to:fever, chills, nausea, vomiting, diarrhea, shortness of breath,blood in urine/stool,uncontrolled pain, sudden headache or change in balance and/or vision, confusion,or any other symptom of concern. 5. Try to stay active as much as possible. 6. Avoid unnecessary exposure to infection. 7. Wash hands frequently when out in public. 8. Please continue a neutropenic diet until your counts recover. 9. Due to COVID pandemic, please avoid travel outside the home unless for necessary appointment or medical care. Please advise those who reside with you to limit their exposure to the public/community. Please limit visitors, especially with anyone who has recently traveled 10. Wear your N95 mask (or surgical mask if you don't have one) when leaving the hospital and returning for appointments. We would also recommend wearing your mask in community settings. This is important when your white blood counts are low to prevent harmony respiratory diseases. 11. Wash hands frequently. Please disinfect any items you take in and out of the home. 12. Please call your provider immediately if you experience fever, shortness of breath, and cough. Please do not report to the emergency department, clinic, or urgent care without calling first unless you are experiencing a life threatening emergency. Lab Work - Please have your labs checkedas previously scheduledin the infusion room on December 14, 2023 at 3pm.The results will be faxed to your RN coordinator and you will be contacted if there are any issues or concerns. Follow Up - Please follow-up as previously scheduled with your [facility] House Operator, Dr. Singh on December 14, 2023 at 4pm. Please refer to the Appointment section of this paperwork for details. If this appointment has not yet been scheduled, you should be contacted with this appointment in the next 2-3 business days.If you are not, please call [phone] or your RN coordinator to follow up. - Please arrange for follow-up with your primary care provider in 7-10 days after your discharge. Please take a copy of this paperwork with you to this appointment to discuss this hospitalization/medication changes. Medications - Your medication list has been reviewed [...] current medications and/or make your symptoms worse. - Updated/new medicationsplease refer to the Medication section of this paperwork for your complete medication list 1. Azithromycin 500mg by mouth daily for the next 4 days, ending on 09/09- this is for treatmentof your questionable pneumonia in your right lung 2. Tylenol 1,000mg by mouth every 8 hours as neededfor pain 3. Oxycodone 20mg by mouth every 4 hours as needed for pain [facility] your [facility]. . Advance Directive:None I personally spent55 minutes in discharge planning. Electronic Signature on File Electronically Reviewed/Signed by: ASHLEY Martinez Author Signature Dt/Tm:09/05/2023 12:42 PM Division of Hematology Oncology [facility] * DO Toro Manpreet: PERFORM Event Display: .D/C Summary Authored Date: [id number] Non-critical care Shared/Split Visit I have personally performed in its entirety the X_ history, X_ physical exam, X_ medical decision making for this patient 23y M with sickle cell disease (Hgb S/Han) presenting with a few days of worsening generalized bone pain. The patient states that his pain is much better today. His infectious workup is negative. He is stable for discharge today Active Problems: Fever: cxr- negative, blood cultures negative, UA negative, low suspicion for infection Sickle cell pain crisis-Double home oxycodone dose to20mg q4h while inhouse, 1,000 mg tylenol,Celecoxib,Continue home hydroxyurea at 750mg daily. Brett Toro DO Hospitalist, Hematology-Oncology Electronic Signature on File Electronically Reviewed/Signed by: Brett Toro DO Author Signature Dt/Tm:09/05/2023 04:59 PM Division of Hematology Oncology [facility] Emergency department Summary note * Janeth Schulte MD, Caitlin: PERFORM, MODIFY, MODIFY, MODIFY Event Display: ED Summary Authored Date: [id number] Basic Information Time Seen: Janeth Schulte MD, Caitlin 09/02/2023 18:57 Chief Complaint "I am having a sickle cell crisis and I have pain all over." History of Present Illness 23-year-old male with history of sickle cell anemia presents to the ED with typical sickle cell pain crisis. He states his pain started this morning at 1 AM, and describes 10 out of 10 constant aching pain"all over" -early in hisneck,anterior chest,and bilateral thighs. He denies any fever, chills, cough, URI symptoms, vomiting, diarrhea, joint pain/stiffness, leg swelling. He states when the pain gets this bad it takes his breath away, otherwise denies anydyspnea.He is taking his homepain medications which include ibuprofen, celecoxib, and oxycodone with no relief. Hestates when it gets this bad he comes to the hospital for Dilaudid.[facility] pain [facility] 10/10,came down to 3/10 after one dose of dilaudid, and 0/10 after second dose. Upon discharge and initially upon being at home patient felt well, however pain returnedin the afternoonand has continued to get worse, prompting his ED visit here. No recent travel. No known sick contacts. Review of Systems ROS per HPI Physical Exam Vitals & Measurements T:36.5C HR:84(Monitored) RR:20 BP:125/77 SpO2:99% Oxygen Therapy:Room air HT:170.2cm WT:58.300kg(Dosing) WT:58.3kg BMI:20.13 General: [Alert, no acute distress]. Skin: [Warm, dry]. Head: [Normocephalic, atraumatic]. Neck: [Trachea midline]. Eye: [Normal conjunctiva, Sclera: Clear]. Cardiovascular: [Regular rate and rhythm, Normal peripheral perfusion]. Respiratory: [Lungs are clear to auscultation, respirations are non-labored]. Chest wall: [No deformity]. Gastrointestinal: [Soft, Non distended, No significant tenderness]. MSK: Tenderness on palpationof the anterior chest wall,posterior and lateral neck,and extremities. No joint swelling, warmth, redness. Neurological: [Normal speech observed, Level of consciousness: Appropriate for age]. Psychiatric: [Cooperative, appropriate affect]. Skin: no rashes Medical Decision Making Patient presenting with signs and symptomsoftypical sickle cellpain crisis. Patient does have anterior chest wall pain that is consistent with previous episodes of sickle cell pain crisis. I did consider acute chest syndrome, however clinically very low suspicion for this given thatpatient is afebrile, not hypoxic, and not tachypneic. Denies any cough or wheezing. His respirations are even and unlabored and lung sounds are clear to auscultation bilaterally. Do not feel chest x-ray is clinically indicated at this time. Will obtain CBC, CMP, and reticulocyte panel, and treat symptomatically withIV pain medication with anticipation ofeventual admission to heme-onc service forsickle cell paincrisis Reexamination/Reevaluation After initial dose of Dilaudid, patient reports painproved from 10/10 to 4/10. Second dose given, and upon re-evaluation pain unchanged, and worse with ambulation after patient ambulated to the restroom - he denies any cp or sob on ambulation but did make the pain worse, especially the thigh pain. He feels the neck and chest pain are significantly better however. Labs reviewed and notable foranemia and elevated reticulocytes consistent with an acutecrisis. Given that patient is presentingto the ED today with uncontrolled pain aftera previous EDvisitthis morning for the same,he was deemed appropriate for admission to the hematology servicefor further evaluation and management ofsickle cell pain crisis. Discussed with patient who is amenable to admission at this time. I spoke withheme-onc triagewhoagrees patient appropriate for admission. She admitted to their service in stable condition. Assessment/Plan Sickle cell crisis Medication Reconciliation Unchanged acetaminophen (Tylenol 325 mg oral tablet)2 tab(s) by mouth every 4 hours as needed fever/mild pain(1-3). celecoxib (celecoxib 100 mg oral capsule)1 cap by mouth 2 times daily. Refills: 1. folic acid (folic acid 1 mg oral tablet)1 tab(s) by mouth once daily. Refills: 3. hydroxyurea (hydroxyurea 500 mg oral capsule)on day 1 1000mg PO daily , day 2 100mgPO daily , day 3500 Mg PO daily then repeat OR as instructed by provider. Refills: 5. ibuprofen (ibuprofen 400 mg oral tablet)2 tab(s) by mouth every 8 hours as needed pain - mild (1-3). Refills: 1. naloxone (naloxone 4 mg/0.1 mL nasal spray)4 Milligram in the nose once. Refills: 0. oxyCODONE (oxyCODONE 5 mg oral tablet)5 Milligram by mouth every 6 hours as needed as needed for pain. For breakthrough pain associated with acute sickle cell pain. Refills: 0. Problem List/Past Medical History Ongoing Chest pain Headache Ligament laxity Sickle cell-hemoglobin Han disease Trigeminal neuralgia Procedure/Surgical History NoneBiopsy Allergies fentaNYL (Moderate)Numbness Family History Family history is negative Electronic Signature on File Electronically Reviewed/Signed by: Cee Schulte MD Author Signature Dt/Tm:09/03/2023 12:45 AM Department of Emergency Medicine [facility] Discharge instructions * ASHLEY [place] Sara Lynn: PERFORM, MODIFY Event Display: Patient Discharge Instructions Authored Date: [id number] DONTRELL CONNORS :2000 Visit Date:09/02/2023 Patient Discharge Instructions [facility] For medical concerns, call: . Date of Admission:09/02/2023 Date of Discharge:09/05/2023 Physician:DO Toro Manpreet Service:Hematology/Oncology Discharge Disposition:Home . Advance Directive:None Reason for Hospitalization Pneumonia Your Diagnoses Pneumonia Sickle cell crisis Chest pain Sickle cell-hemoglobin Han disease My Health Patient Portal: [facility] makes it easy for you to manage your health information online. My [place] [facility] is a free service that provides you instant, secure access to your medical information anytime, anywhere. Sign in or set up your account today at [email or web address] Thank you for allowing us to assist you with your healthcare needs. If you need additional community resources, [place] [employer] can help at https://www.pa211.org. 211 can assist you in connecting with social programs based on your unique needs and locations. 211 is an anonymous search that can help you locate resources for: Food, Housing, Transportation, Goods, Education and Healthcare. Medications What How Much When Instructions Next Dose New azithromycin (azithromycin 500 mg oral tablet) 1 tab(s) by mouth Once daily Please take until Pickup at [facility]/pharmacy #[id number] Changed acetaminophen (acetaminophen 500 mg oral tablet) 2 tab(s) by mouth Every 8 hours as needed for fever/mild pain (1-3) Pickup at [facility]/pharmacy #1920 Changed oxyCODONE (oxyCODONE 10 mg oral tablet) 20 Milligram by mouth Every 4 hours as needed for pain - moderate (4-6) Pickup at [facility]/pharmacy #1920 Unchanged celecoxib (celecoxib 100 mg oral capsule) 1 cap by mouth 2 times daily Unchanged folic acid (folic acid 1 mg oral tablet) 1 tab(s) by mouth Once daily Unchanged hydroxyurea (hydroxyurea 500 mg oral capsule) See instructions on day 1 1000mg PO daily , day 2 100mgPO daily , day 3 500 Mg PO daily then repeat OR as instructedby provider Unchanged ibuprofen (ibuprofen 400 mg oral tablet) 2 tab(s) by mouth Every 8 hours as needed for pain - mild (1-3) Unchanged naloxone (naloxone 4 mg/ 0.1 mL nasal spray) 4 Milligram in the nose Once Pharmacy Information [facility]/pharmacy #0: [id number], [place] [id number] [phone] Allergies fentaNYL (Moderate)Numbness What to do next Instructions From Your Doctor DISCHARGE INSTRUCTIONS: General Instructions 1. Please take temperature 3 - 4 times per day or if you don't feel well or experience the chills, call immediately if temperature is greater than 100.4 2. Eat as much as possible to keep up your nutrition. 3. Drink plenty of fluids. 4. Call for anynew orworsening symptoms includingbut not limited to:fever, chills, nausea, vomiting, diarrhea, shortness of breath,blood in urine/stool,uncontrolled pain, sudden headache or change in balance and/or vision, confusion,or any other symptom of concern. 5. Try to stay active as much as possible. 6. Avoid unnecessary exposure to infection. 7. Wash hands frequently when out in public. 8. Please continue a neutropenic diet until your counts recover. 9. Due to COVID pandemic, please avoid travel outside the home unless for necessary appointment or medical care. Please advise those who reside with you to limit their exposure to the public/community. Please limit visitors, especially with anyone who has recently traveled 10. Wear your N95 mask (or surgical mask if you don't have one) when leaving the hospital and returning for appointments. We would also recommend wearing your mask in community settings. This is important when your white blood counts are low to prevent harmony respiratory diseases. 11. Wash hands frequently. Please disinfect any items you take in and out of the home. 12. Please call your provider immediately if you experience fever, shortness of breath, and cough. Please do not report to the emergency department, clinic, or urgent care without calling first unless you are experiencing a life threatening emergency. Lab Work - Please have your labs checkedas previously scheduledin the infusion room on December 14, 2023 at 3pm.The results will be faxed to your RN coordinator and you will be contacted if there are any issues or concerns. Follow Up - Please follow-up as previously scheduled with your [facility] House Operator, Dr. Singh on December 14, 2023 at 4pm. Please refer to the Appointment section of this paperwork for details. If this appointment has not yet been scheduled, you should be contacted with this appointment in the next 2-3 business days.If you are not, please call [phone] or your RN coordinator to follow up. - Please arrange for follow-up with your primary care provider in 7-10 days after your discharge. Please take a copy of this paperwork with you to this appointment to discuss this hospitalization/medication changes. Medications - Your medication list has been reviewed [...] current medications and/or make your symptoms worse. - Updated/new medicationsplease refer to the Medication section of this paperwork for your complete medication list 1. Azithromycin 500mg by mouth daily for the next 4 days, ending on 09/09- this is for treatmentof your questionable pneumonia in your right lung 2. Tylenol 1,000mg by mouth every 8 hours as neededfor pain 3. Oxycodone 20mg by mouth every 4 hours as needed for pain [facility] upon your discharge. If you notice the following symptoms CALL YOUR DOCTOR IF: 1. Please call the [facility] at during normal business hours (Wednesday - Wednesday 8:00am 4:30pm) for any new symptoms including, but not limited to: fevers (temperatures >100.4 degrees F or 38.1 degrees Celsius), chills, intractable nausea or vomiting, diarrhea, rash, shortness of breath, yellowing of skin or eyes, bleeding, pain, redness, or drainage at your catheter site, dehydration, and dizziness. Other concerns can be directed to the [facility] as well. 2. For emergency and very serious health related issues (including fever > 100.4) after normal business hours, please contact the Hematology/Oncology After Hours Careline at , option#4. Depending on the issue, you may be directed to go to the Emergency Room. For other serious health issues such as chest pain and/or shortness of breath you may need to call 911 or go directly to the Emergency Room. 3. If you are unable to reach anyone at the after business hours number or do not receive a return call within 1 hour, please contact the hospital ordering box operator at [phone] and ask to speak with the hematology/oncology fellow on-call. If unable to contact your physician and you feel it is an emergency, go to the nearest Emergency Room or call 911. An additional resource now available to you is the [facility] located in the Infusion Room. You can be seen by a provider 7 days per week, 8am-4:30pm. This service was created to provide supportive care and help you manage urgent side effects/symptoms related to your cancer or cancer treatment with the goal of decreasing emergency room visits and hospital admissions. Visits are often the same day by appointment only. You can schedule your appointment by calling the [facility] at . You will be directed to a triage nurse who will gather your information and help you schedule an appointment. Contact our Careline at . If unable to contact your physician and you feel it is an emergency, go to the nearest Emergency Room or call 911 Diet Instructions Please resume your regular diet as tolerated. Activity Instructions ACTIVITY: Activity as tolerated but take precautions to prevent falls or injury and ask for assistance as youregain your strength, coordination and endurance. Remain as active as possible but avoid large crowds or sick contacts. You may resume your previous home activities, but go slowly and pace yourself as tolerated. Always take fall precautions, and ask for assistance as you regain your strength, coordination, andendurance. It may time time for youtoadapt to home life. Follow-Up Appointments Scheduled Follow-Up Appointments Date/Time:Provider/Resource: Dec 03:00 pmLab/Specimen Location/Instructions:[facility], [address], 1[address], [address], [place] [address] Date/Time:Provider/Resource: Dec 04:00 pmSickle Cell Provider Location/Instructions:[facility], [address], [address], [address], [place] [address] Test Results (09/03/2023 02:16 EST XR Chest 1 View) IMPRESSION: Hypoventilatory changes with bibasilar atelectasis. (09/03/2023 22:36 EST XR Chest 1 View) IMPRESSION: Right basilar opacities favoring atelectasis. Tests Pending None Special Instructions Common Emergency Awareness Tips [...] of these heart attack warning signs, call 9-1-1 to get immediate medical attention! Education Materials Warning Signs of Opioid Misuse Opioids are powerful substances that relieve pain. Opioids include illegal drugs, such as heroin, as well as prescription pain medicines, such as codeine, morphine, hydrocodone, and fentanyl. Opioid misuse happens when opioids are used in a way that is different from how they were prescribed. Opioid misuse can lead to addiction (opioid use disorder) or taking too much at one time (opioid overdose). It is important to recognize signs of opioid misuse to help the person who is taking opioids get the right treatment. In the case of an overdose, emergency treatment can save his or her life if givensoon enough. How can opioid misuse affect people? Signs of opioid misuse Taking another person's prescription opioid. Getting and taking an opioid without a legal prescription. Taking more of an opioid than prescribed. Taking an opioid in a different way than it was prescribed, such as snorting, crushing, or injecting it. Taking an opioid to feel "high," relaxed, or energized. Taking other medicines or drugs with an opioid. Signs of opioid use disorder Having an uncontrollable need for the opioid. Taking the opioid despite the harmful effects. Needing more of the opioid to get the same effect (tolerance). Finding illegal ways to get a prescription opioid. These may include: Finding new health care providers to write a prescription (doctor shopping). Taking another person's medicine. Stealing. Buying the medicine illegally. Feeling like the opioid use is out of control. Feeling sick when not taking the opioid (withdrawal). Having mental, social, emotional, and behavioral warning signs of opioid abuse. These include: Depression, anxiety, restlessness, or irritability. Trouble sleeping and daytime fatigue. Itchy, flushed skin. Changes in: Appetite. Appearance, mood, and behavior. Relationships and social groups. Trouble with school or work, finances, or law enforcement. Use of other prescription medicines or drugs, such as marijuana. Where to find more information Centers for Disease Control and Prevention: www.cdc.gov [place] Department of Health and Human Services: hhs.gov/opioids National [place] on Drug Abuse: www.drugabuse.gov Contact a health care provider if: You have concerns about the person who is taking opioids. You may notice the person: Is misusing an opioid medicine. Has signs of an opioid disorder. Has needle macias on the skin, recent or old. Needs help or treatment for opioid withdrawal or opioid use disorder. Is taking prescription opioids and is becoming too dependent on it. Get help right away if: The person who is taking opioids takes too much of an opioid (overdosed). Common symptoms of an overdose include: Sleepiness or difficulty waking from sleep. Decrease in attention or confusion. Slurred speech. Slowed breathing and a slow pulse (bradycardia). Very small pupils. Other symptoms include: Pale, cool skin. Blue lips or fingernails. Seizures. Frothy or bubbly mucus coming out of the mouth. Opioid overdose is an emergency. Do not wait to see if the symptoms will go away. Get medical help right away. Call your local emergency services (911 in the [place] Summary Opioid misuse can lead to opioid use disorder and opioid overdose. A person who is taking a prescription opioid may be at risk if he or she takes the prescription opioid in a way that is not prescribed by a health care provider. It is important to recognize signs of opioid misuse, opioid use disorder, and opioid overdose to get the right treatment. Opioid overdose is an emergency. Do not wait to see if the symptoms will go away. Get medical help right away. This information is not intended to replace advice given to you by your health care provider. Make sure you discuss any questions you have with your health care provider. Document Revised: 01/07/2022 Document Reviewed: 01/07/2022 [email or web address] Patient Education 2022 [employer]. Opioid Pain Medicine Management Opioid pain medicines are strong medicines that are used to treat bad or very bad pain. When you take them for a short time, they can help you: Sleep better. Do better in physical therapy. Feel better during the first few days after you get hurt. Recover from surgery. Only take these medicines if a doctor says that you can. You should only take them for a short time. This is because opioids can be very addictive. This means that they are hard to stop taking. The longer you take opioids, the harder it may be to stop taking them. What are the risks? Opioids can cause problems (side effects). Taking them for more than 3 days raises your chance of problems, such as: Trouble pooping (constipation). Feeling sick to your stomach (nausea). Vomiting. Feeling very sleepy. Confusion. Not being able to stop taking the medicine. Breathing problems. Taking opioids for a long time can make it hard for you to do daily tasks. It can also put you at risk for: Car accidents. Depression. Suicide. Heart attack. Taking too much of the medicine (overdose). This can lead to . What is a pain treatment plan? A pain treatment plan is a plan made by you and your doctor. Work with your doctor to make a plan for treating your pain. To help you do this: Talk about the goals of your treatment, including: How much pain you might expect to have. How you will manage the pain. Talk about the risks and benefits of taking these medicines for your condition. Remember that a good treatment plan uses more than one approach and lowers the risks of side effects. Tell your doctor about the amount of medicines you take and about any drug or alcohol use. Get your pain medicine prescriptions from only one doctor. Pain can be managed with other treatments. Work with your doctor to find other ways to help your pain, such as: Physical therapy or doing gentle exercises. Counseling. Eating healthy foods. Massage. Meditation. Other pain medicines. How to use opioid pain medicine safely Taking medicine Take your pain medicine exactly as told by your doctor. Take it only when you need it. If your pain is not too bad, you may take less medicine if your doctor allows. If you have no pain, do not take the medicine unless your doctor tells you to take it. If your pain is very bad, do not take more medicine than your doctor told you to take. Call your doctor to know what to do. Write down the times when you take your pain medicine. Look at the times before you take your next dose. Take other xhki-ifz-ofwvtcy or prescription medicines only as told by your doctor. Keeping yourself and others safe While you are taking opioids: Do not drive, use machines, or power tools. Do not sign important papers (legal documents). Do not drink alcohol. Do not take sleeping pills. Do not take care of children by yourself. Do not do activities where you need to climb or be in high places, like working on a ladder. Do not go to a jeronimo, river, ocean, swimming pool, or hot tub. Keep your opioids locked up or in a place where children cannot reach them. Do not share your pain medicine with anyone. Stopping your use of opioids If you have been taking opioids for more than a few weeks, you may need to slowly decrease (taper) how much you take until you stop taking them. Doing this can lower your chance of having symptoms. Symptoms that come from suddenly stopping the use of opioids include: Pain and cramping in your belly (abdomen). Feeling sick to your stomach (nausea).z Sweating. Feeling very sleepy. Feeling restless. Shaking you cannot control (tremors). Cravings for the medicine. Do not try to stop taking them by yourself. Work with your doctor to stop. Your doctor will help you take less until you are not taking the medicine at all. Getting rid of unused pills Do not save any pills that you did not use. Get rid of the pills by: Taking them to a take-back program in your area. Bringing them to a pharmacy that receives unused pills. Flushing them down the toilet. Check the label or package insert of your medicine to see whether this is safe to do. Throwing them in the trash. Check the label or package insert of your medicine to see whether this is safe to do. If it is safe to throw them out: 1. Take the pills out of their container. 2. Put the pills into a container you can seal. 3. Mix the pills with used coffee grounds, food scraps, dirt, or cat litter. 4. Put this in the trash. Follow these instructions at home: Activity Do exercises as told by your doctor. Avoid doing things that make your pain worse. Return to your normal activities as told by your doctor. Ask your doctor what activities are safe for you. General instructions You may need to take these actions to prevent or treat constipation: Drink enough fluid to keep your pee (urine) pale yellow. Take zeva-fwj-mdcnaqu or prescription medicines. Eat foods that are high in fiber. These include beans, whole grains, and fresh fruits and vegetables. Limit foods that are high in fat and sugar. These include fried or sweet foods. Keep all follow-up visits. Where to find support If you have been taking opioids for a long time, get help from a local support group or counselor. Ask your doctor about this. Where to find more information Centers for Disease Control and Prevention (CDC): www.cdc.gov [place]. Food and Drug Administration (FDA): www.fda.gov Get help right away if: You may have taken too much of an opioid (overdosed). Common symptoms of an overdose: Your breathing is slower or more shallow than normal. You have a very slow heartbeat. Your speech is not normal. You vomit or you feel as if you may vomit. The black centers of your eyes (pupils) are smaller than normal. You have other potential symptoms: You feel very confused. You faint. You are very sleepy. You have cold skin. You have blue lips or fingernails. You have thoughts of harming yourself or harming others. These symptoms may be an emergency. Get help right away. Call your local emergency services (917 int [place] Do not wait to see if the symptoms will go away. Do not drive yourself to the hospital. Get help right away if you feel like you may hurt yourself or others, or have thoughts about takingyour own life. Go to your nearest emergency room or: Call your local emergency services (480 in the [place] Call the National Poison Control Center at . Call a suicide crisis helpline, such as the National Suicide Prevention Lifeline at or 965 in the [place] This is open 24 hours a day. Text the Crisis Text Line at 914348. Summary Opioid are strong medicines that are used to treat bad or very bad pain. A pain treatment plan is a plan made by you and your doctor. Work with your doctor to make a plan for treating your pain. If you think that you or someone else may have taken too much of an opioid, get help right away. This information is not intended to replace advice given to you by your health care provider. Make sure you discuss any questions you have with your health care provider. Document Revised: 04/22/2022 Document Reviewed: 01/07/2022 [email or web address] Patient Education 2022 [email or web address] Living With Sickle Cell Disease Living with [...] Follow these instructions at home: Medicines Take agrv-eej-mwmjwlf and prescription medicines only as told by [...] Centers for Disease Control and Prevention: www.cdc.gov [place] [employer] Hemat[employer]: www.hematology.org Contact a health [...] the National Suicide Prevention Lifeline at or 058. This is open 24 hours a day. Text the Crisis Text Line at 754564. Summary Proper care and treatment can help [...] provider. Document Revised: 01/04/2023 Document Reviewed: 01/04/2023 [email or web address] Patient Education 2022 [employer]. Community-Acquired Pneumonia, Adult Pneumonia is an infection of the lungs. It causes irritation and swelling in the airways of the lungs. Mucus and fluid may also build up inside the airways. This may cause coughing and trouble breathing. One type of pneumonia can happen while you are in a hospital. A different type can happen when you are not in a hospital (community-acquired pneumonia). What are the causes? This condition is caused by germs (viruses, bacteria, or fungi). Some types of germs can spread from person to person. Pneumonia is not thought to spread from person to person. What increases the risk? You have a long-term (chronic) disease, such as: Disease of the lungs. This may be chronic obstructive pulmonary disease (COPD) or asthma. Heart failure. Cystic fibrosis. Diabetes. Kidney disease. Sickle cell disease. HIV. You have other health problems, such as: Your body's defense system (immune system) is weak. A condition that may cause you to breathe in fluids from your mouth and nose. You had your spleen taken out. You do not take good care of your teeth and mouth (poor dental hygiene). You use or have used tobacco products. You go where the germs that cause this illness are common. You are older than 65 years of age. What are the signs or symptoms? A cough. A fever. Sweating or chills. Chest pain, often when you breathe deeply or cough. Breathing problems, such as: Fast breathing. Trouble breathing. Shortness of breath. Feeling tired (fatigued). Muscle aches. How is this treated? Treatment for this condition depends on many things, such as: The cause of your illness. Your medicines. Your other health problems. Most adults can be treated at home. Sometimes, treatment must happen in a hospital. Treatment may include medicines to kill germs. Medicines may depend on which germ caused your illness. Very bad pneumonia is rare. If you get it, you may: Have a machine to help you breathe. Have fluid taken away from around your lungs. Follow these instructions at home: Medicines Take cgtx-fky-jkgqlth and prescription medicines only as told by your doctor. Take cough medicine only if you are losing sleep. Cough medicine can keep your body from taking mucus away from your lungs. If you were prescribed antibiotics, take them as told by your doctor. Do not stop taking them even if you start to feel better. Lifestyle Do not smoke or use any products that contain nicotine or tobacco. If you need help quitting, ask your doctor. Do not drink alcohol. Eat a healthy diet. This includes a lot of vegetables, fruits, whole grains, low-fat dairy products, and low-fat (lean) protein. General instructions Rest a lot. Sleep for at least 8 hours each night. Sleep with your head and neck raised. Put a few pillows under your head or sleep in a reclining chair. Return to your normal activities as told by your doctor. Ask your doctor what activities are safe for you. Drink enough fluid to keep your pee (urine) pale yellow. If your throat is sore, gargle with a mixture of salt and water 34 times a day or as needed. To make salt water, completely dissolve 1 tsp (36 g) of salt in 1 cup (237 mL) of warm water. Keep all follow-up visits. How is this prevented? Getting the pneumonia shot (vaccine). These shots have different types and schedules. Ask your doctor what works best for you. Think about getting this shot if: You are older than 65 years of age. You are 1966 years of age and: You are being treated for cancer. You have long-term lung disease. You have other problems that affect your body's defense system. Ask your doctor if you have one of these. Getting your flu shot every year. Ask your doctor which type of shot is best for you. Going to the dentist as often as told. Washing your hands often with soap and water for at least 20 seconds. If you cannot use soap and water, use hand metal finisher. Contact a doctor if: You have a fever. You lose sleep because your cough medicine does not help. Get help right away if: You are short of breath and this gets worse. You have more chest pain. Your sickness gets worse. This is very serious if: You are an older adult. Your body's defense system is weak. You cough up blood. These symptoms may be an emergency. Get help right away. Call 911. Do not wait to see if the symptoms will go away. Do not drive yourself to the hospital. Summary Pneumonia is an infection of the lungs. Community-acquired pneumonia affects people who have not been in the hospital. Certain germs can cause this infection. This condition may be treated with medicines that kill germs. For very bad pneumonia, you may need a hospital stay and treatment to help with breathing. This information is not intended to replace advice given to you by your health care provider. Make sure you discuss any questions you have with your health care provider. Document Revised: 11/25/2022 Document Reviewed: 11/25/2022 [email or web address] Patient Education 2022 [employer]. [1]XR Chest 1 View; MD Porfirio, Shen Cruz 09/03/2023 22:36 EST Patient Care team information Care Team Personnel Name: MD Kvng, Willi Null Position: Physician Member Role: Primary Care Provider Address: Address: [address] [place] [address] [place] Name: MD Horacio, João Null Position: Physician - Ped Hem/Onc Member Role: Lifetime Relationship Address: Address: [address] [place] [address] [place] Name: Tamara Savage Blaine Position: Pharmacist Member Role: Pharmacy - Lifetime Name: Tamara Toscano Kevin M Position: Pharmacist DRC Member Role: Pharmacy - Lifetime Address: Address: [facility] [address] [place] [address] [place] Name: Tamara Mauricio Kyle Position: Pharmacist Member Role: Pharmacy - Lifetime Address: Address: [address] [place] [address] [place] Name: MD Bienvenido, Marck Lindsay Position: Physician - Hem/Onc Member Role: Admitting Physician Address: Address: [address] [place] [address] [place] Name: R.E.S. Not Needed Position: Resident Name: Lauren Rodriguez Position: Admissions I Care Team Related Persons Name: ELOISA CONNORS Address: [address] [place] [phone] Name: BLAINE CONNORS Address: [address] [place] [phone] Name: BLU SEKOU Address: [address] [place] [id number]
--- OUTSIDE RECORDS SUMMARY | 2024-01-18 09:34 | External Medical Summary | Continuity of Care Document ---
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 Role Phone Willi Calderon Primary Care Physician [phone] Encounter [facility] [id number] Date(s): 08/19/23 - 08/19/23 [facility] [address], [address], [address] [place] [id number] [phone] Encounter Diagnosis Myopia, bilateral(Discharge Diagnosis) - 08/19/23 Regular astigmatism, bilateral(Discharge Diagnosis) - 08/19/23 Discharge Disposition: Home or Self Care Attending Physician: JASMINE Power Kristin N Referring Physician: MD Ava, Debra Deleon Allergies, Adverse Reactions, Alerts Substance Reaction Severity Status fentaNYL Numbness Moderate Active Immunizations Given and Recorded Vaccine Date Status [...] ORDERED ENTERED AT TIME OF VISIT Medications celecoxib 100 mg oral capsule Start: 08/09/23 12:48:00 EDT, 1 cap, PO, bid, Disp# 60 cap, Refills: 1, Pharmacy: [id number] Start Date: 08/09/23 Status: Ordered folic acid 1 mg oral tablet Start: 07/06/23 15:54:00 EDT, 1 tab, PO, Daily, Disp# 90 tab, Refills: 3, [id number] Start Date: 07/06/23 Status: Ordered hydroxyurea 500 mg oral capsule Start: 06/01/23 9:40:00 EDT, See Instructions, Disp# 90 cap, Refills: 5, on day 1 1000mg PO daily ,day 2 100mgPO daily , day 3 500 Mg PO daily then repeat OR as instructed by provider, [id number] Start Date: 06/01/23 Status: Ordered ibuprofen 400 mg oral tablet Start: 02/11/23 13:49:00 EDT, 2 tab, PO, q8h, Disp# 180 tab, Refills: 1, PRN: pain - mild (1-3), Pharmacy: [facility] #[id number] Start Date: 02/11/23 Status: Ordered naloxone 4 mg/0.1 mL nasal spray Start: 02/11/23 13:49:00 EDT, 4 mg =, intranasal, ONCE, Disp# 2 each, Note to Pharmacy: Use for overdose of opiates or not breathing., Pharmacy: [facility] #[id number] Start Date: 02/11/23 Status: Ordered oxyCODONE 5 mg oral tablet Start: 02/11/23 13:49:00 EDT, 1 tab, PO, q6h, Disp# 15 tab, Refills: 0, For breakthrough pain associated with acute sickle cell pain, PRN: as needed for pain, Pharmacy: [facility]/pharmacy #[id number] Start Date: 02/11/23 Status: Ordered Tylenol 325 mg oral tablet Start: 06/26/22 11:33:00 EDT, 2 tab, PO, q4h, PRN: fever/mild pain (1-3) Start Date: 06/26/22 Status: Ordered Mental Status 08/19/23 Barriers to Learning one year None evide nt Communication Barrier Present No Health Literacy Communication Barriers N ever Primary Language Dutch Problem List Condition Confirmation Course Effective Dates Status Health St atus Informant Chest pain Confirmed Active Headache Confirmed Active 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 Trigeminal neuralgia Confirmed Active Diagnosis Diagnosis Type Effective Dates Health Status Cl inical Service Informant Regular astigmatism, bilateral Discharge Diagnosis 08/19/23 Non-Specified Myopia, bilateral Discharge Diagnosis 08/19/23 Non-Specified Procedures Procedure Date Related Diagnosis Body Site Status Biopsy Completed None Completed Social History Social History Type Response Smoking Status Never smoker entered on: 08/19/23 Sex Male Ophthalmology Outpatient Note * JASMINE Power Kristin N: PERFORM, MODIFY, MODIFY, SIGN, VERIFY Event Display: Ophthalmology Outpt Note Authored Date: [id number] Patient: DONTRELL HURT Age: 23 years Sex: Male : 2000 Associated Diagnoses: None Author: JASMINE Power Kristin N Visit Information Referring/Other Provider: ,MD Ava, Debra Deleon Visit Type: New Chief Complaint: New eval. sickle cell. Here to establish care. Denies blurry VA. Denies pain, flashes or floaters. History of Present Illness Presents for: New patient presents for an updated refraction. Has had glasses in the past ~10 yearsago however none recently. Noting mild blur OU, constant, gradually worsening, distance. Denies newflashes/floaters, denies eye pain, denies diplopia. 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 Review of Systems Tech Entered Information: History (ROS) Reviewed: 08/19/23 Systems Reviewed: Eyes . Health Status Allergies: Allergic Reactions (All) Moderate FentaNYL- Numbness. Canceled/Inactive Reactions (All) NKA No Known Medication Allergies. Current Medications: (Selected) Prescriptions Prescribed celecoxib 100 mg oral capsule: 1 cap, PO, bid, 60 cap, 1 Refill(s) folic acid 1 mg oral tablet: 1 tab, PO, Daily, 90 tab, 3 Refill(s) hydroxyurea 500 mg oral capsule: See Instructions, on day 1 1000mg PO daily , day 2 100mgPO daily ,day 3 500 Mg PO daily then repeat OR as instructed by provider, 90 cap, 5 Refill(s) ibuprofen 400 mg oral tablet: 2 tab, PO, q8h, PRN: pain - mild (1-3), 180 tab, 1 Refill(s) naloxone 4 mg/0.1 mL nasal spray: 4 mg, intranasal, ONCE, 2 each oxyCODONE 5 mg oral tablet: 1 tab, PO, q6h, For breakthrough pain associated with acute sickle cellpain, PRN: as needed for pain, 15 tab, 0 Refill(s) Documented Medications Documented Tylenol 325 mg oral tablet: 2 tab, PO, q4h, PRN: fever/mild pain (1-3). Problem List: Medical Trigeminal neuralgia / SNOMED CT 23759644 / Confirmed Sickle cell-hemoglobin Rodriguez disease / SNOMED CT 746275 / Confirmed Ligament laxity / SNOMED CT 99128428 / Confirmed Headache / SNOMED CT 9978849222 / Confirmed Chest pain / SNOMED CT 21337018 / Confirmed All Problems Trigeminal neuralgia / SNOMED CT 71353790 / Confirmed Sickle cell-hemoglobin Rodriguez disease / SNOMED CT 724008 / Confirmed Ligament laxity / SNOMED CT 29333041 / Confirmed Headache / SNOMED CT 4430226707 / Confirmed Chest pain / SNOMED CT 60656141 / Confirmed. Histories Procedure History: None ([id number]). Biopsy ([id number]).. Past Medical History: No active or resolved past medical history items have been selected or recorded.. Family history: Entire family history is negative.. Social History: Social & Psychosocial Habits Tobacco 12/24/2020 Risk Assessment: Denies Tobacco Use 08/19/2023 Use: Never smoker . Physical Examination General: Alert and oriented x 3. Glasses/Contact Lens Info No current glasses information entered on this encounter No Contact Hx information found Visual Acuity Visual Acuity Right sc: 20/40 Left sc: 20/30-2 Both sc: Right PH: 20/20-2 Left PH: 20/20-1 Both PH: Visual Acuity Method: Snellen Visual Acuity Test Type: Refraction Auto Refraction: Right Eye: -1.25 +0.75 x014 Left Eye: -1.50 +1.25 x173 Refraction Type +: Type of Refraction: Manifest, Final. Prescription Date: 08/19/2023. OD: Rx -1.25 +0.75 x 020, VA Far 20/20. OS: Rx -1.50 +1.00 x 180, VA Far 20/20. Pupil Measurements Pupils Equal: Yes Right RAPD In Dark: Negative APD Left RAPD In Dark: Negative APD Visual Valerio Visual Valerio: Normal by confrontation testing Right & Left Eye Motility Ocular Motility: Versions Full Impression and Plan Diagnosis: Myopia, bilateral ([id number] H52.13, Discharge, Medical), Regular astigmatism, bilateral ([id number] H52.223, Discharge, Medical). Plan: 1. Myopia and Astigmatism OU: Change in prescription in which patient appreciated when shown. Glasses prescription released. Patient educated on all findings. Monitor refraction prn per patient request. Instructed to follow up with Dr. Escalante as scheduled.. Follow Up: As needed or sooner if symptoms worsen. Plan for next visit: Refraction. Electronic Signature on File Electronically Reviewed/Signed by: Rowena Power, JASMINE Author Signature Dt/Tm:08/19/2023 05:13 PM Department of Ophthalmology [facility] Patient Care team information Care Team Personnel Name: MD Kvng, Willi Null Position: Physician Member Role: Primary Care Provider Address: Address: [address] [place] [address] [place] Name: MD Horacio, João Null Position: Physician - Ped Hem/Onc Member Role: Lifetime Relationship Address: Address: [address] [place] [address] [place] Name: Tamara Savage Blaine Position: Pharmacist Member Role: Pharmacy - Lifetime Name: Tamara Toscano Kevin M Position: Pharmacist DRC Member Role: Pharmacy - Lifetime Address: Address: [facility] [address] [place] [address] Name: Tamara Mauricio Kyle Position: Pharmacist Member Role: Pharmacy - Lifetime Address: Address: [address] [place] [address] Care Team Related Persons Name: SEKOU JOHNSON Address: home [address] [place] [id number] Name: ELOISA HURT Address: home [address] [place] [id number] Name: BLAINE HURT Address: home [address] [place], [id number]
--- OUTSIDE RECORDS SUMMARY | 2024-01-18 09:34 | External Medical Summary | Continuity of Care Document ---
Author Name Unknown Organization [facility] Address [address] [place] [id number] Care Team Providers Care Chief Of Party Name Role Phone Willi Calderon Primary Care Physician [phone] Encounter [facility] [id number] Date(s): 12/14/23 - 12/14/23 [facility] [id number], [place] [id number]- [phone] Encounter Diagnosis Sickle cell-hemoglobin Han disease(Discharge Diagnosis) - 12/14/23 Narcotic use agreement exists(Discharge Diagnosis) - 12/14/23 Discharge Disposition: Home or Self Care Attending Physician: MD Calderon Matthew S Referring Physician: MD Calderon Matthew S Allergies, Adverse Reactions, Alerts Substance Reaction Severity [...] 50 tab, PRN: fever/mild pain (1-3), [id number] Start Date: 09/05/23 Status: Ordered celecoxib 100 mg oral capsule Start: 08/09/23 12:48:00 EDT, 1 cap, PO, bid, Disp# 60 cap, Refills: 1, Pharmacy: [id number] Start Date: 08/09/23 Status: Ordered hydroxyurea 500 mg oral capsule Start: 12/14/23 16:36:00 EST, See Instructions, Disp# 90 cap, Refills: 5, on day 1 1000mg PO daily , day 2 1000mgPO daily , day 3 500 Mg PO daily then repeat OR as instructed by provider, [id number] Start Date: 12/14/23 Status: Ordered ibuprofen 400 mg oral tablet Start: 02/11/23 13:49:00 EDT, 2 tab, PO, q8h, Disp# 180 tab, Refills: 1, PRN: pain - mild (1-3), Pharmacy: [facility] #[id number] Start Date: 02/11/23 Status: Ordered naloxone 4 mg/0.1 mL nasal spray Start: 02/11/23 13:49:00 EDT, 4 mg =, intranasal, ONCE, Disp# 2 each, Note to Pharmacy: Use for overdose of opiates or not breathing., Pharmacy: [facility] #[id number] Start Date: 02/11/23 Status: Ordered oxyCODONE 10 mg oral tablet Start: 09/05/23 12:07:00 EST, 20 mg =, PO, q4h, Disp# 60 tab, Refills: 0, PRN: pain - moderate (4-6), Pharmacy: [facility] #[id number] Start Date: 09/05/23 Status: Ordered Mental Status 12/14/23 Barriers to Learning one year None evide nt Mandatory Health Literacy Documentation Yes Communication Barrier Present No Health Literacy Communication Barriers N ever Primary Language [place]ese Problem List Condition Confirmation Course Effective Dates Status Health St atus Informant Chest pain Confirmed Active Headache Confirmed Active 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 (HEMOGLOBIN, S) 12/14/23 Most recent to oldest [Reference Range]: 1 MPV [9.0-12.2 fL] 9.0 fL (12/14/23 2:44 PM) Immature Gran% 0.3 % (12/14/23 2:44 PM) Neut% 50.0 % (12/14/23 2:44 PM) Lymph% 41.7 % (12/14/23 2:44 PM) Sierra% 6.6 % (12/14/23 2:44 PM) Baso% 0.4 % (12/14/23 2:44 PM) Eos% 1.0 % (12/14/23 2:44 PM) Immat Gran, Abs [0-0.4 K/uL] 0.02 K/uL (12/14/23 2:44 PM) Neut, Abs [2.0-7.7 K/uL] 3.62 K/uL (12/14/23 2:44 PM) Lymph, Abs [1.0-3.4 K/uL] 3.02 K/uL (12/14/23 2:44 PM) Sierra, Abs [0-1.0 K/uL] 0.48 K/uL (12/14/23 2:44 PM) Baso, Abs [0-0.1 K/uL] 0.03 K/uL (12/14/23 2:44 PM) Eos, Abs [0-0.5 K/uL] 0.07 K/uL (12/14/23 2:44 PM) Type of Diff: AUTO *Unknown* (12/14/23 2:44 PM) RDW [11.5-14.2 %] 18.0 % *HI* (12/14/23 2:44 PM) Hct [39-48 %] 32.9 % *LOW* (12/14/23 2:44 PM) Hgb [13.0-17.0 g/dL] 10.8 g/dL *LOW* (12/14/23 2:44 PM) Hb F [0-2 %] 14.1 % *HI* (12/14/23 2:44 PM) Hb S [NOPR %] 82.8 % *Abnormal* (12/14/23 2:44 PM) MCH [28-33 pg] 22.7 pg *LOW* (12/14/23 2:44 PM) MCHC [32-36 g/dL] 32.8 g/dL (12/14/23 2:44 PM) MCV [81-96 fL] 69.1 fL *LOW* (12/14/23 2:44 PM) Plts [150-350 K/uL] 198 K/uL (12/14/23 2:44 PM) RBC [4.40-5.60 M/uL] 4.76 M/uL (12/14/23 2:44 PM) WBC [4.0-10.4 K/uL] 7.24 K/uL 1 (12/14/23 2:44 PM) 1Result Comment: ADJUSTED FOR NUCLEATED RBC'S Vital Signs Most recent to oldest [Reference Range]: 1 Height 166 cm (12/14/23 3:16 PM) Patient Weight 60 kg (12/14/23 3:16 PM) Body Mass Index 21.77 kg/m2 (12/14/23 3:16 PM) Temperature [36.5-37.9 DegC] 37 DegC (12/14/23 3:16 PM) Heart Rate 84 bpm (12/14/23 3:16 PM) Respiratory Rate 16 br/min (12/14/23 3:16 PM) Blood Pressure 101/63mmHg (12/14/23 3:16 PM) Mean Blood Pressure 72 mmHg (12/14/23 3:16 PM) Cuff Pulse Pressure 38 mmHg (12/14/23 3:16 PM) BP Location # 1 Left Arm (12/14/23 3:16 PM) Social History Social History Type Response Smoking Status Never smoked cigaret hilda Sex Male Patient Care team information Care Team Personnel Name: MD Kvng, Willi Null Position: Physician Member Role: Primary Care Provider Address: Address: [address] [place] [address] Name: MD Horacio, João Null Position: Physician - Ped Hem/Onc Member Role: Lifetime Relationship Address: Address: [address] [place] [address] [place] Name: Tamara Savage Blaine Position: Pharmacist Member Role: Pharmacy - Lifetime Name: Tamara Toscano Kevin M Position: Pharmacist DRC Member Role: Pharmacy - Lifetime Address: Address: [facility] [address] [place] [address] [place] [facility] Position: Pharmacist Member Role: Pharmacy - Lifetime Address: Address: [address] [place] [address] Care Team Related Persons Name: ELOISA HURT Address: home [address] [id number] Name: BLAINE HURT Address: home [address] [place] [id number] Name: SEKOU HURT Address: home [address] [place] [id number]
[2024-01-18] MEDS: HYDROmorphone INJ 2 MG/ML SYR/VIAL IV PRN (13:38)
[2024-01-18] MEDS ORDERED: SODIUM CHLORIDE 0.65% NA SOLN 45 ML (OCEAN) PRN (16:31)
[2024-01-18] MEDS: diphenhydrAMINE Capsule 25 MG CAP PO PRN (20:41)
[2024-01-18] MEDS: oxyCODONE HCL IR 5 MG TAB (IMMEDIATE RELEASE) PO PRN (22:38)
[2024-01-19 08:19] LABS: Basophils # (auto) 0.02 K/uL (0.00-0.20); Basophils % (auto) 0.2 %; Eosinophils # (auto) 0.04 K/uL (0.00-0.50); Eosinophils % (auto) 0.4 %; Hematocrit (blood only) 22.6 % (42.0-52.0); Hemoglobin 7.6 g/dl (14.0-18.0); Immature Granulocytes # (auto) 0.08 K/uL (0.01-0.20); Immature Granulocytes % (auto) 0.9 %; Lymphocytes # (auto) 2.36 K/uL (1.20-3.40); Lymphocytes % (auto) 25.9 %; Mean Corpuscular Hgb Conc 33.6 g/dL (32.0-36.0); Mean Corpuscular Volume 68.3 fL (80.0-100.0); Monocytes # (auto) 0.54 K/uL (0.11-0.59); Monocytes % (auto) 5.9 %; Neutrophils # (auto) 6.06 K/uL (1.40-6.50); Neutrophils % (auto) 66.7 %; Nucleated RBC # (auto) 0.11 K/uL (0.00-0.12); Nucleated RBC % (auto) 1.2 %; RDW Coefficient of Variation 22.1 % (11.5-14.5); RDW Standard Deviation 50.7 fL (36.4-46.3); Red Blood Count 3.31 M/uL (4.70-6.10)
[2024-01-19 08:31] LABS: Mean Platelet Volume 9.1 fL (9.4-12.4); Platelet Count 435 K/uL (130-400)
[2024-01-19 08:49] LABS: Alanine Aminotransferase 15 U/L (7-52); Albumin Level 3.7 gm/dl (3.4-5.0); Alkaline Phosphatase 83 U/L (34-104); Anion Gap 6 (3-11); Aspartate Aminotransferase 25 U/L (13-39); BUN Creatinine Ratio 10.3 (10-20); Bilirubin Direct 0.2 mg/dl (0-0.2); Bilirubin,Total 0.8 mg/dl (0.2-1.0); Blood Urea Nitrogen 7 mg/dl (6-23); Calcium 8.9 mg/dl (8.6-10.3); Carbon Dioxide 28 mmol/L (21-32); Chloride 103 mmol/L (98-107); Creatinine Clr Calc Pharmacy 133.6 ml/min; Est GFR (African American) > 150.0 ml/min; Est GFR (Non-African American) 133.7 ml/min; Globulin 3.6 gm/dl (2.5-4.0); Glucose 98 mg/dl (70-99(Fasting)); Potassium 3.4 mmol/L (3.5-5.1); Sodium 137 mmol/L (136-145); Total Protein 7.3 gm/dl (6.0-8.3)
[2024-01-19 08:50] LABS: Microcytosis Present; Polychromasia 3+; Target Cells 2+
[2024-01-19] MEDS: POTASSIUM CHLORIDE CRTAB 20 MEQ TABCR PO STA (09:31)
[2024-01-19] MEDS: ACETAMINOPHEN 500 MG TAB PO PRN (09:32)
[2024-01-19] MEDS: HYDROXYUREA 500 MG CAP PO SCH (09:32)
[2024-01-19] MEDS: OPTIRAY 320 100ml IV ONE (12:20)
--- NOTE | 2024-01-19 12:44 | CT Scan Report ---
CT femur LT w con CLINICAL HISTORY: Left thigh pain. Evaluate for abscess. COMPARISON STUDY: No previous studies for comparison. TECHNIQUE: Axial images of the left femur and thigh were obtained following intravenous injection of 92 cc of Optiray 320 IV. Sagittal and coronal reconstructions were viewed. Automated exposure control was utilized for the study. A dose lowering technique was utilized adhering to the principles of AL SOBIA. FINDINGS: A small amount of fluid within the pelvis is incidentally noted. There is no left inguinal lymphadenopathy. No fluid collection within the left thigh is present. Musculature is unremarkable. T here is no fracture within the left femur. No osseous lesions are noted. No soft tissue gas within th e left thigh is noted. IMPRESSION: 1. No fluid collection within the left thigh to suggest abscess. 2. No fractures within the left femur. No evidence for acute osteomyelitis. ACT 112: Negative or not required by law. Electronically signed by: Jerson Jordan M.D. 01/19/2024 12:43 PM
--- NOTE | 2024-01-19 12:50 | CT Scan Report ---
CT tib/fib LT w con HISTORY: 23 years-old Male pain, abscess suspected acute pain and swelling of the left lower extremi ty. Possible abscess. COMPARISON: CT left femur of same day TECHNIQUE: Multiple axial CT images of the left tibia and fibula were obtained with IV contrast. A do se lowering technique was used consistent with the principals of SENG. FINDINGS: No acute fracture, dislocation, osseous erosion or osteochondral defect. The joint spaces appear pres erved. Pedunculated osteochondroma of the proximal medial tibial metaphysis measures 1.2 cm on image 79 series 6. Tendons and ligaments are not well evaluated by CT technique. Mild nonspecific subcutaneous edema is most pronounced anteriorly. No fluid collections. The musculature and vasculature are within normal l imits. IMPRESSION: 1. No fluid collection identified to suggest an abscess. 2. No acute osseous abnormality. 3. 1.2 cm pedunculated osteochondroma of the proximal tibia. ACT 112: Negative or not required by law. The above report was generated using voice recognition software. It may contain grammatical, syntax o r spelling errors. Electronically signed by: Johnnie Bergeron M.D. 01/19/2024 12:49 PM
[2024-01-19] MEDS ORDERED: HYDROmorphone INJ 1 MG/ML SYRINGE IV PRN (16:21)
--- NOTE | 2024-01-19 17:38 | Hospitalist Progress Note ---
Date of Service January 19, 2024 Assessment & Plan (1) Sickle cell disease: Plan: 23yo male with sickle cell disease presenting with acute pain crisis. Patient with pain in the left thigh. No evidence of infection or acute chest syndrome. Patient with microcytic/hypochromic anemia with Hgb=7.7, Hct=23.1, MCV=68.3 and MCH=22.8 (no prior baseline values), elevated reticulocyte count to 7.27%. Patient has received very little pain relief with the therapies administered thus far (Dilaudid 0.5 + 0.5 + 1mg). -Admit to medical -Continue supplemental O2 for comfort - no hypoxia noted -1/2 NSS at 80mL/hr x 2L -Continue hydroxyurea at home dose - patient takes 100mg po on days 1 and 2 and 500mg po on day 3 then repeats the cycle -Continue Folic Acid -Pain control with Tylenol 1gm PO TID PRN mild pain -Oxycodone 20mg po q 4 hours as needed for moderate pain -Dilaudid 0.5 mg IV q 6 hours as needed for mild pain (3, 4, 5) -Dilaudid 1 mg IV q 6 hours as needed for severe pain (6-10) -Narcan available for oversedation or respiratory depression -Bowel regimen with Miralax and Colace PRN -Continuous pulse oximeter CT left leg no abscess F/E/N - 1/2 NSS at 80mL/hr x 2L, electrolytes WNL, Regular diet as tolerated PPx - low risk for DVT Code - Full per discussion with patient Dispo - Admit to medical floor for ongoing pain management Admission and Anticipated Discharge Date Admission Date: January 18, 2024 Subjective still reports a lot of pain , generalized Review of Systems Review of Systems: All systems reviewed & are unremarkable except as noted in Subjective Physical Exam Physical Exam: head atraumatic neck supple chest CTA heart S1S2 regular abdomen soft, nt, nd, bs present extremities no clubbing, no cyanosis, no edema Results & Data Results & Data Vital Signs (Past 12 Hours) Vital Signs Temp Pulse Resp BP Pulse Ox Pulse Ox O2 Del Method 01/19/24 15:33 36.8 C 93 H 18 111/75 96 Room Air 01/19/24 14:00 98 01/19/24 08:54 Nasal Cannula 01/19/24 08:11 36.9 C 89 19 108/74 97 Nasal Cannula O2 Del Method O2 Flow Rate 01/19/24 15:33 01/19/24 14:00 Room Air 01/19/24 08:54 2 01/19/24 08:11 2 PG Care Time/CCT Total # of Minutes Spent Total Time Spent with Patient: Total time spent is greater than 50% in coordination of care (as documented) at patient's floor/unit and/or counseling patient: Coding Level of Care Code 11559 SUB INP/OBS CARE 2/35MIN Diagnoses Sickle cell disease D57.1
[2024-01-19] MEDS: HYDROmorphone INJ 2 MG/ML SYR/VIAL IV PRN (18:59)
[2024-01-19] MEDS: oxyCODONE HCL IR 5 MG TAB (IMMEDIATE RELEASE) PO PRN (20:54)
[2024-01-20] MEDS: HYDROmorphone INJ 1 MG/ML SYRINGE IV ONE (01:58)
[2024-01-20] MEDS: oxyCODONE HCL IR 5 MG TAB (IMMEDIATE RELEASE) PO SCH (05:58)
--- NOTE | 2024-01-20 06:11 | Electrocardiogram Report ---
Test Reason : Blood Pressure : / mmHG Vent. Rate : 077 BPM Atrial Rate : 077 BPM P-R Int : 192 ms QRS Dur : 080 ms QT Int : 380 ms P-R-T Axes : 082 066 056 degrees QTc Int : 430 ms Normal sinus rhythm Early repolarization No previous ECGs available Confirmed by Julian Reyes ([id number]) on 01/20/2024 6:10:49 AM Referred By: REFERRED SELF Confirmed By:Julian Reyes
[2024-01-20] MEDS: HYDROmorphone INJ 2 MG/ML SYR/VIAL IV PRN (08:11)
[2024-01-20 08:26] LABS: Basophils # (auto) 0.01 K/uL (0.00-0.20); Basophils % (auto) 0.1 %; Eosinophils # (auto) 0.02 K/uL (0.00-0.50); Eosinophils % (auto) 0.2 %; Hematocrit (blood only) 25.1 % (42.0-52.0); Hemoglobin 8.3 g/dl (14.0-18.0); Immature Granulocytes # (auto) 0.06 K/uL (0.01-0.20); Immature Granulocytes % (auto) 0.6 %; Lymphocytes # (auto) 2.11 K/uL (1.20-3.40); Lymphocytes % (auto) 22.2 %; Mean Corpuscular Hemoglobin 22.8 pg (25.0-34.0); Mean Corpuscular Hgb Conc 33.1 g/dL (32.0-36.0); Monocytes # (auto) 0.58 K/uL (0.11-0.59); Monocytes % (auto) 6.1 %; Neutrophils # (auto) 6.74 K/uL (1.40-6.50); Neutrophils % (auto) 70.8 %; Nucleated RBC # (auto) 0.08 K/uL (0.00-0.12); Nucleated RBC % (auto) 0.8 %; RDW Coefficient of Variation 21.7 % (11.5-14.5); RDW Standard Deviation 50.8 fL (36.4-46.3); Red Blood Count 3.64 M/uL (4.70-6.10); Reticulocyte % 7.56 % (0.50-2.00); White Blood Count 9.52 K/ul (4.8-10.8)
[2024-01-20] MEDS: DOCUSATE SODIUM 100 MG CAP PO PRN (08:34)
[2024-01-20] MEDS: HYDROXYUREA 500 MG CAP PO SCH (08:34)
[2024-01-20 08:43] LABS: Mean Platelet Volume 9.3 fL (9.4-12.4); Platelet Count 414 K/uL (130-400)
[2024-01-20 08:50] LABS: Anisocytosis Present; Microcytosis Present; Polychromasia 2+; Stomatocytes 1+; Target Cells 2+
[2024-01-20 08:52] LABS: Alanine Aminotransferase 15 U/L (7-52); Albumin Level 3.9 gm/dl (3.4-5.0); Alkaline Phosphatase 88 U/L (34-104); Anion Gap 9 (3-11); Aspartate Aminotransferase 27 U/L (13-39); BUN Creatinine Ratio 11.4 (10-20); Bilirubin,Total 0.9 mg/dl (0.2-1.0); Blood Urea Nitrogen 8 mg/dl (6-23); Calcium 9.4 mg/dl (8.6-10.3); Carbon Dioxide 27 mmol/L (21-32); Chloride 101 mmol/L (98-107); Creatinine Clr Calc Pharmacy 129.8 ml/min; Est GFR (African American) > 150.0 ml/min; Est GFR (Non-African American) 132.1 ml/min; Globulin 4.1 gm/dl (2.5-4.0); Glucose 82 mg/dl (70-99(Fasting)); Potassium 3.8 mmol/L (3.5-5.1); Sodium 137 mmol/L (136-145)
--- NOTE | 2024-01-20 09:00 | Oncology Consultation ---
Date of Consultation January 20, 2024 Assessment & Plan (1) Sickle cell disease: Plan -Gentleman who presented with sickle cell painful crisis.Labs today show hemoglobin of 8.3, hematocrit of 25.1 . - He appears to still be in significant amount of pain. As such, recommend adjusting pain medication regimen with increasing frequency of IV Dilaudid to every 3 hours as needed. If this is not helpful, consider MANAGING PARTNER pump. Also recommend IV fluids -Obtain urinalysis and blood cultures to rule out underlying infection. -Continue with hydroxyurea and folic acid -Will discuss with his outpatient head butler to find out baseline hemoglobin and threshold for simple/exchange transfusion. Thank you for this consult. Hematology continue following patient while in the hospital. Please feel free to call if you have any further questions History of Present Illness Reason for Consultation: Sickle cell crisis Attending Physician: Echo Rodríguez MD History of Present Illness 23-year-old gentleman with history of sickle cell anemia who presented with left lower extremity pain typical for sickle cell crisis. States that pain started several days ago. He indicates that over the past 1 month, he has been admitted multiple times for sickle cell crisis. He was initially admitted in [place] in late December, and more recently at [facility]. Was treated with IV fluids and pain medications. Follows with Dr. Calderon at [facility]. Indicates that he usually takes oxycodone 20 mg p.o. every 4 hours as needed for pain as well as Tylenol. CT lower extremity obtained on admission was negative for acute process. Chest x-ray also negative for infection/acute process. Allergies Allergy/AdvReac Type Severity Reaction Status Date / Time fentanyl Allergy Intermediate Numbness Verified 01/18/24 04:45 Home Medications Medication Instructions Recorded Confirmed Type acetaminophen 500 mg tablet 1,000 mg PO Q8H PRN Pain, Mild 01/18/24 01/18/24 History folic acid 1 mg tablet 1 mg PO DAILY 01/18/24 01/18/24 History hydroxyurea 500 mg capsule 500 mg PO UD 01/18/24 01/18/24 History ibuprofen 400 mg tablet 800 mg PO Q8H PRN Pain, Mild 01/18/24 01/18/24 History levofloxacin 750 mg tablet 750 mg PO DAILY 01/18/24 01/18/24 History oxycodone 10 mg tablet 20 mg PO Q4H PRN Pain, Moderate 01/18/24 01/18/24 History Patient History Medical History Sickle cell disease Surgical History No significant past surgical history Family History (Updated 01/18/24 @ 04:49 by Denita Villanueva DO) Other Sickle cell trait Social History (Updated 01/18/24 @ 04:49 by Denita Villanueva DO) Smoking Status: Never smoker Second Hand Exposure: No; Do You Dip or Chew Tobacco: No; Tobacco Cessation Education Requested by Patient: No Hx Alcohol Use: No Hx Substance Use: No Preferred Language: Belizean Communication Ability: Effective Planting Material Remover Required: No Beliefs That Will Affect Care: None Current Living Situation: Alone Other Information That Helps Us Care for You: No Feels Safe at Home: Yes Safety Concerns: Feels Safe At This Time Assistive Devices: None Results & Data Vital Signs (Past 12 Hours) Vital Signs Temp Resp BP Pulse Ox O2 Del Method 01/20/24 07:26 37.3 C 18 109/72 96 Room Air
[2024-01-20] MEDS: POLYETHYLENE (MIRALAX) 17 GM PACK PO PRN (14:54)
[2024-01-20] MEDS: levoFLOXacin/D5W 750 MG/150 ML BAG IV SCH (15:32)
--- NOTE | 2024-01-20 15:54 | Hospitalist Progress Note ---
Date of Service January 20, 2024 Assessment & Plan (1) Sickle cell disease: Plan: 23yo male with sickle cell disease presenting with acute pain crisis. Patient with pain in the left thigh. No evidence of infection or acute chest syndrome. Patient with microcytic/hypochromic anemia with Hgb=7.7, Hct=23.1, MCV=68.3 and MCH=22.8 (no prior baseline values), elevated reticulocyte count to 7.27%. Patient has received very little pain relief with the therapies administered thus far (Dilaudid 0.5 + 0.5 + 1mg). -Admit to medical -Continue supplemental O2 for comfort - no hypoxia noted -1/2 NSS at 80mL/hr x 2L -Continue hydroxyurea at home dose - patient takes 100mg po on days 1 and 2 and 500mg po on day 3 then repeats the cycle -Continue Folic Acid -Pain control with Tylenol 1gm PO TID PRN mild pain -Oxycodone 20mg po q 4 hours as needed for moderate pain -Dilaudid 0.5 mg IV q 6 hours as needed for mild pain (3, 4, 5) -Dilaudid 1 mg IV q 6 hours as needed for severe pain (6-10) -Narcan available for oversedation or respiratory depression -Bowel regimen with Miralax and Colace PRN -Continuous pulse oximeter CT left leg no abscess , no OM contacted [facility] via transfer center, hem/onc recommends transfer, but patient declined transfer to [facility] add Tylenol 1000 mg TID XR right femur continue Levaquin empirically for OM anemia is stable, monitor CBC Admission and Anticipated Discharge Date Admission Date: January 18, 2024 Subjective still reports a lot of pain , generalized and left leg Review of Systems Review of Systems: All systems reviewed & are unremarkable except as noted in Subjective Physical Exam Physical Exam: head atraumatic neck supple chest CTA heart S1S2 regular abdomen soft, nt, nd, bs present extremities no clubbing, no cyanosis, no edema Results & Data Results & Data Vital Signs (Past 12 Hours) Vital Signs Temp Pulse Resp BP Pulse Ox O2 Del Method 01/20/24 15:05 37.2 C 102 H 20 114/65 100 Room Air 01/20/24 07:26 37.3 C 18 109/72 96 Room Air PG Care Time/CCT Total # of Minutes Spent Total Time Spent with Patient: Total time spent is greater than 50% in coordination of care (as documented) at patient's floor/unit and/or counseling patient: Coding Level of Care Code 31556 SUB INP/OBS CARE 2MIN Diagnoses Sickle cell disease D57.1
[2024-01-20] MEDS: oxyCODONE HCL IR 5 MG TAB (IMMEDIATE RELEASE) PO PRN (17:55)
[2024-01-20] MEDS: ACETAMINOPHEN 500 MG TAB PO SCH (22:20)
--- NOTE | 2024-01-21 07:05 | XRay Report ---
XR femur RT 2V routine CLINICAL HISTORY: infection. Right leg infection. COMPARISON STUDY: None. FINDINGS: No fracture or dislocation within the right femur. No destructive changes to suggest an ost eomyelitis. No significant knee effusion. No soft tissue swelling or soft tissue gas. The visualized pelvic bones are intact. IMPRESSION: No significant abnormality within the right femur. ACT 112: Negative or not required by law. Electronically signed by: Sg Flores M.D. 01/21/2024 7:04 AM
[2024-01-21 07:37] LABS: Basophils # (auto) 0.01 K/uL (0.00-0.20); Basophils % (auto) 0.1 %; Eosinophils # (auto) 0.03 K/uL (0.00-0.50); Eosinophils % (auto) 0.4 %; Hematocrit (blood only) 25.3 % (42.0-52.0); Hemoglobin 8.2 g/dl (14.0-18.0); Immature Granulocytes # (auto) 0.04 K/uL (0.01-0.20); Immature Granulocytes % (auto) 0.5 %; Lymphocytes # (auto) 2.56 K/uL (1.20-3.40); Mean Corpuscular Hemoglobin 22.7 pg (25.0-34.0); Mean Corpuscular Hgb Conc 32.4 g/dL (32.0-36.0); Mean Corpuscular Volume 69.9 fL (80.0-100.0); Monocytes # (auto) 0.51 K/uL (0.11-0.59); Monocytes % (auto) 6.4 %; Neutrophils # (auto) 4.85 K/uL (1.40-6.50); Neutrophils % (auto) 60.6 %; Nucleated RBC # (auto) 0.06 K/uL (0.00-0.12); Nucleated RBC % (auto) 0.8 %; RDW Coefficient of Variation 21.4 % (11.5-14.5); RDW Standard Deviation 51.9 fL (36.4-46.3); Red Blood Count 3.62 M/uL (4.70-6.10); Reticulocyte % 7.11 % (0.50-2.00)
[2024-01-21 08:09] LABS: Mean Platelet Volume 8.8 fL (9.4-12.4); Platelet Count 388 K/uL (130-400)
[2024-01-21 08:16] LABS: Albumin Level 3.8 gm/dl (3.4-5.0); BUN Creatinine Ratio 10.8 (10-20); Bilirubin,Total 0.9 mg/dl (0.2-1.0); Calcium 9.4 mg/dl (8.6-10.3); Creatinine Clr Calc Pharmacy 122.8 ml/min; Est GFR (African American) 149.6 ml/min; Est GFR (Non-African American) 129.1 ml/min; Potassium 3.6 mmol/L (3.5-5.1); Total Protein 7.8 gm/dl (6.0-8.3)
[2024-01-21 08:33] LABS: Anisocytosis Present; Microcytosis Present; Polychromasia 2+; Target Cells 2+
--- NOTE | 2024-01-21 11:17 | Discharge Summary ---
Date of Service January 21, 2024 Admission HPI Per Admitting Provider Mark Starr is a pleasant 23yo male with history of sickle cell disease presenting with acute pain crisis. Patient's pain began suddenly in his left thigh at 15:00 on 01/17/24. He took Oxycodone 20mg and Tylenol 1gm at home prior to arrival with some improvement. However, his pain persisted therefore he came to the ER. Patient denies fever, chills, cough, chest pain or shortness of breath. No abdominal pain, nausea or vomiting. His current pain is typical for his sickle cell crises. Patient has had acute chest syndrome in the past, last time thought to be in 2020. In the ER he is afebrile, HD stable. ER Course: Dilaudid 0.5mg IV x 2doses + 1mg + 2mg NSS x 1L Zofran 4mg IV Principal Diagnosis sickle cell crisis Discharge Exam head atraumatic neck supple chest CTA heart S1S2 regular abdomen soft, nt, nd, bs present extremities no clubbing, no cyanosis, no edema Discharge Data Allergies Allergy/AdvReac Type Severity Reaction Status Date / Time fentanyl Allergy Intermediate Numbness Verified 01/18/24 04:45 Consultations 01/18/24 03:54 ED Decision to Admit Stat 01/20/24 03:32 Consult Hematology Routine Ordered Studies 01/19/24 11:11 CT leg [CT femur LT w con] Stat CT tib/fib LT w con Stat Hospital Course (1) Sickle cell disease: 23yo male with sickle cell disease presenting with acute pain crisis. Patient with pain in the left thigh. No evidence of infection or acute chest syndrome. Patient with microcytic/hypochromic anemia with Hgb=7.7, Hct=23.1, MCV=68.3 and MCH=22.8 (no prior baseline values), elevated reticulocyte count to 7.27%. Patient has received very little pain relief with the therapies administered thus far (Dilaudid 0.5 + 0.5 + 1mg). -Admit to medical -Continue supplemental O2 for comfort - no hypoxia noted -1/2 NSS at 80mL/hr x 2L -Continue hydroxyurea at home dose - patient takes 100mg po on days 1 and 2 and 500mg po on day 3 then repeats the cycle -Continue Folic Acid -Pain control with Tylenol 1gm PO TID PRN mild pain -Oxycodone 20mg po q 4 hours as needed for moderate pain -Dilaudid 0.5 mg IV q 6 hours as needed for mild pain (3, 4, 5) -Dilaudid 1 mg IV q 6 hours as needed for severe pain (6-10) -Narcan available for oversedation or respiratory depression -Bowel regimen with Miralax and Colace PRN -Continuous pulse oximeter CT left leg no abscess , no OM contacted [facility] via transfer center, hem/onc recommends transfer, but patient declined transfer to [facility] add Tylenol 1000 mg TID XR right femur continue Levaquin empirically for OM anemia is stable, monitor CBC patient reports feeling better, pain is controlled, no fever, wants to be discharged home Total Time Total Time Spent Total Time Spent (In Minutes): 35 min Discharge Plan Discharge Items Patient Disposition: Home - Self-Care Reason For Visit: SICKLE CELL PAIN CRISIS Discharge Diagnosis: sickle josiah crisis Activity: Resume your previous activity Non-emergency contact: Oncologist Call non-emergency contact if: your symptoms worsen and your pain is not controlled Follow-up/Referrals: Willi Calderon M.D. [Primary Care Provider] - Diet: Regular Addtl Attending Provider Instructions: PCP Pending Studies at Discharge: No Stand-Alone Forms: My [employer], Smoking Cessation Medications and DC Order Prescriptions: Continued acetaminophen 500 mg tablet 1,000 mg PO Q8H PRN (Reason: Pain, Mild) hydroxyurea 500 mg capsule 500 mg PO UD Rx Instructions: Day 1 & 2: 1000 mg QD Day 3: 500 mg QD;REPEAT PER MD ibuprofen 400 mg tablet 800 mg PO Q8H PRN (Reason: Pain, Mild) folic acid 1 mg tablet 1 mg PO DAILY oxycodone 10 mg tablet 20 mg PO Q4H PRN (Reason: Pain, Moderate) levofloxacin 750 mg Tablet 750 mg PO DAILY Rx Instructions: started 01/09/2024 FOR 6 WEEKS Admission Data Admit Date/Time: 01/18/24 04:31 Attending Provider: Echo Rodríguez Admit Provider: Denita Villanueva Primary Care Provider: Willi Calderon Other Providers: Denita Villanueva; Jamia Amanda Coding Level of Care Code 71698 INP/OBS DISCH >30 MIN Diagnoses Sickle cell disease D57.1
[2024-01-21] MEDS: levoFLOXacin 750 MG TAB PO ONE (15:46)
--- NOTE | 2024-01-21 17:03 | Progress Note ---
Date of Service January 21, 2024 Assessment & Plan (1) Sickle cell disease: (2) Osteomyelitis: Plan She he declined transfer to [facility] and states that pain is slightly better, continue with pain management and hydration. Hematology will sign off at this time. Feel free to call if you have any other questions. Admission and Anticipated Discharge Date Admission Date: January 18, 2024 Subjective He states that pain is a little bit better. Restarted on Levaquin. Declined transferred to [facility] Results & Data Vital Signs (Past 12 Hours) Vital Signs Temp Pulse Resp BP Pulse Ox O2 Del Method O2 Del Method 01/21/24 15:32 37.3 C 98 H 14 110/75 98 01/21/24 14:00 Room Air 01/21/24 07:36 37.3 C 98 H 14 110/75 98 Room Air
== END 2024-01-21 17:11 | disposition home or self-care (01) | DRG 812 ==
LOC: ED 20:55 → EDINP 01-18 04:31 → SUATTDRO 01-18 04:31 → 3N 01-18 13:09

== ENCOUNTER 2024-10-18 09:12 | Inpatient (IN) ==
--- NOTE | 2024-10-18 09:50 | Emergency Department Note ---
Impression & Plan Sickle cell crisis, Chest pain, Acute extremity pain ED Provider Note CHIEF COMPLAINT: "Sickle cell" HISTORY OF PRESENT ILLNESS: This 24 year old male patient presents to the emergency department via private vehicle for evaluation of sickle cell crisis. Pt. reports long-standing history of Sickle cell disease and is treated by [facility] Hematology. Pt. states he initially developed pain around 2am last night. States he took ibuprofen and subsequently presented here at about 2:30 and was medicated with IV Dilaudid. He had labs and CXR completed at that time which were unremarkable. Pt. states his pain significantly improved and he was able to be discharged to home at about 5:30am on PO Percocet. Pt. states when he got home, he took a Percocet and fell asleep. No additional analgesics. States when he woke up at about 8:30, he was in excruciating 7/10 pain "everywhere." Pt. describes pain in all extremities, his chest, and his back. States normally with his episodes, he has pain in one extremity, so this presentation is unusual for him. He returned to the ED for further management of his pain/sickle cell crisis. Pt. most recently saw his director script last spring he believes. He provides his treatment plan on his phone, but notes he does not have it printed or scanned into his chart locally here. Pt. does feel his breathing is somewhat labored due to the chest pain. He denies recent illness, fever, chills, nausea, vomiting, URI symptoms, or others. History provided by: Patient REVIEW OF SYSTEMS: A 10 system review of systems was performed with positives and pertinent negatives listed in the history of present illness. All other systems were reviewed and are negative. ALLERGIES: fentanyl PHYSICAL EXAM: VITALS: Vitals are noted on the nurse's note and reviewed by myself. GENERAL: This is a 24 year old male, in no acute distress, nondiaphoretic, well- developed well-nourished. SKIN: The skin was without rashes, erythema, edema, or bruising. There is no tenting of the skin. Capillary refill less than 2 seconds. HEAD: Normocephalic atraumatic. EARS: External auditory canals clear, tympanic membranes pearly dawn without erythema or effusion bilaterally. No hemotympanum. Negative blake sign EYES: Pupils equal round and reactive to light and accommodation. Conjunctivae without injection, sclerae without icterus. Extraocular movements intact. NOSE: Patent, turbinates without inflammation or discharge. No sinus tenderness. MOUTH: Mucous membranes moist. Tonsils are not enlarged. Pharynx without erythema or exudate. Uvula midline. Airway patent. Tongue does not deviate. NECK: Supple without nuchal rigidity. No lymphadenopathy. Cervical spine is nontender. No JVD. HEART: Regular rate and rhythm without murmurs gallops or rubs. LUNGS: Clear to auscultation bilaterally without wheezes, rales or rhonchi. No retractions or accessory muscle use. ABDOMEN: Positive bowel sounds x 4. Soft, nontender, without masses or organomegaly. Martinez sign negative. No guarding or rebound tenderness. MUSCULOSKELETAL: No muscle atrophy, erythema, or edema noted. Full range of motion without joint tenderness in all extremities. No tenderness to palpation. Normal gait. Strength 5/5 throughout. NEURO: Patient was alert and oriented to person place and time. Normal sensation to light and sharp touch. Deep tendon reflexes 2+ throughout. No focal neurological deficits. An order was placed for continuous equipment monitor phototypesetting. The monitor showed a normal sinus rhythm at a ventricular rate of 66 bpm, per my interpretation. EKG was reviewed by myself and found to be Normal Sinus rhythm at a rate of 64 beats per minute and per my interpretation reveals no ST elevation or depression, no T-wave inversion. When compared to previous EKG of 08/03/2024 is without significant change Imaging as interpreted by myself and the radiologist revealed findings consistent with atelectasis, with radiologist interpretation as above. I agree with the radiologist's findings as based upon my independent interpretation. EMERGENCY DEPARTMENT COURSE: The patient was seen and evaluated as above. This is the patient's second visit in about 8 hours for sickle cell pain. Pt. having pain in chest, back, all extremities. No recent fever or illness. Pain is consistent with sickle cell pain he has had in the past, but seems to be worse and more widespread. Previous medical records including ED visits and prior hospitalizations were reviewed. IV access obtained, labs drawn. I was able to review patient's treatment plan on the patient's phone encouraging prompt pain control with IV Dilaudid, Po ibuprofen, hydration, and transfusion if necessary. Pt. hydrated with IV NSS. He was medicated with ibuprofen 400mg and Dilaudid 1mg IV per treatment plan. Labs reviewed. No leukocytosis or concerning anemia. Hgb 11.5 (pt. baseline between 10-11). No thrombocytopenia. Reticulocyte #0.250. Renal, hepatic function and electrolytes without significant abnormality. CXR and EKG as above. No evidence of ACS at this time. Pt. reassessed. Still complaining of 3/10 pain. Pt. medicated with additional dose of IV Dilaudid. Did recommend admission at this time. Pt. agreeable. Discussed the case with Cinthya Goode PA-C with [facility] Hospitalist group. Please see hospitalist dictation regarding ongoing management of this patient. Case was discussed with the attending physician. I attest that I have personally reviewed the patient medication list. I attest that I have reviewed the patient's blood pressure and it was found to be normal GCS: 15 In the evaluation and treatment of this patient the following differential diagnoses were entertained: Sickle cell crisis, Acute chest syndrome, infection, anemia, malignancy, among others The chart was completed utilizing [employer] voice recognition software. Grammatical errors, random word insertions, pronoun errors, and incomplete sentences are an occasional consequence of this system due to software limitations, ambient noise, and hardware issues. Any formal questions or concerns about the content, text, or information contained within the body of this dictation should be directly addressed to the provider for clarification. Past Med/Surg History Problem List Acute extremity pain (Acute) Chest pain (Acute) Sickle cell crisis (Acute) No significant past surgical history Medical History Osteomyelitis Sickle cell disease Family History Other Sickle cell trait Social History Smoking Status: Never smoker Second Hand Exposure: No; Do You Dip or Chew Tobacco: No; Hx Alcohol Use: No Hx Substance Use: No Preferred Language: Citizen [place] Communication Ability: Effective Campus Manager Required: No Beliefs That Will Affect Care: None Current Living Situation: Alone Feels Safe at Home: Yes Assistive Devices: None Allergies Allergies Allergy/AdvReac Type Severity Reaction Status Date / Time fentanyl Allergy Intermediate Numbness Verified 10/18/24 11:36 Home Meds Home Medications Medication Instructions Recorded Confirmed folic acid 1 mg tablet 1 mg PO DAILY 01/18/24 10/18/24 hydroxyurea 500 mg capsule 500 mg PO UD 01/18/24 10/18/24 Results & Data (ED) Vital Signs Vital Signs - 24 hr 10/18/24 09:16 10/18/24 09:59 10/18/24 10:00 Temperature 36.5 C Temperature Source Temporal Artery Scan Pulse Rate 66 69 Pulse Rate [Apical] Pulse Rate from SpO2 Sensor Pulse Rhythm [Apical] Pulse Strength [Apical] Respiratory Rate 18 Respiratory Effort / Characteristics Non-Labored Spontaneous Respiratory Depth Normal Respiratory Pattern Blood Pressure 118/77 121/85 Blood Pressure [Right Arm] Blood Pressure Mean 90 98 Blood Pressure Mean [Right Arm] Blood Pressure Position Sitting Pulse Oximetry 100 Oxygen Delivery Method Room Air Sepsis Recent Fever Within 48 Hours No Sepsis New/Unexplained Change in Mental Status No Sepsis Action Taken by Nursing No Action Required 10/18/24 10:18 10/18/24 10:30 10/18/24 10:30 Temperature Temperature Source Pulse Rate 60 59 L Pulse Rate [Apical] Pulse Rate from SpO2 Sensor 61 59 L Pulse Rhythm [Apical] Pulse Strength [Apical] Respiratory Rate 19 16 Respiratory Effort / Characteristics Respiratory Depth Respiratory Pattern Blood Pressure 117/80 Blood Pressure [Right Arm] Blood Pressure Mean 87 Blood Pressure Mean [Right Arm] Blood Pressure Position Pulse Oximetry 96 98 Oxygen Delivery Method Sepsis Recent Fever Within 48 Hours Sepsis New/Unexplained Change in Mental Status Sepsis Action Taken by Nursing 10/18/24 10:39 10/18/24 11:06 Temperature Temperature Source Pulse Rate 63 Pulse Rate [Apical] 73 Pulse Rate from SpO2 Sensor Pulse Rhythm [Apical] Regular Pulse Strength [Apical] Normal Respiratory Rate 17 Respiratory Effort / Characteristics Non-Labored Spontaneous Respiratory Depth Normal Respiratory Pattern Regular Blood Pressure Blood Pressure [Right Arm] 119/80 Blood Pressure Mean Blood Pressure Mean [Right Arm] 93 Blood Pressure Position Pulse Oximetry 96 96 Oxygen Delivery Method Room Air Room Air Sepsis Recent Fever Within 48 Hours Sepsis New/Unexplained Change in Mental Status Sepsis Action Taken by Nursing Laboratory Data 10/18/24 09:50 10/18/24 09:50 Lab Results 10/18/24 Range/Units 09:50 WBC 8.69 (4.8-10.8) K/ul RBC 4.65 L (4.70-6.10) M/uL Hgb 11.5 L (14.0-18.0) g/dl Hct 33.4 L (42.0-52.0) % MCV 71.8 L (80.0-100.0) fL MCH 24.7 L (25.0-34.0) pg MCHC 34.4 (32.0-36.0) g/dL RDW Std Deviation 44.7 (36.4-46.3) fL RDW Coeff of Luis Alfredo 18.0 H (11.5-14.5) % Plt Count 227 (130-400) K/uL MPV 9.7 (9.4-12.4) fL Immature Gran % (Auto) 4.1 % Neut % (Auto) 59.5 % Lymph % (Auto) 29.8 % Sioux % (Auto) 5.9 % Eos % (Auto) 0.2 % Baso % (Auto) 0.5 % Reticulocyte % (Auto) 5.30 H (0.50-2.00) % Neut # (Auto) 5.17 (1.40-6.50) K/uL Lymph # (Auto) 2.59 (1.20-3.40) K/uL Sioux # (Auto) 0.51 (0.11-0.59) K/uL Eos # (Auto) 0.02 (0.00-0.50) K/uL Baso # (Auto) 0.04 (0.00-0.20) K/uL Reticulocyte # 0.250 H (0.020-0.100) 10^6/uL Immature Gran # (Auto) 0.36 H (0.01-0.20) K/uL Absolute Nucleated RBC 0.36 H (0.00-0.12) K/uL Nucleated RBC % (auto) 4.1 % Toxic Vacuolation 1+ Polychromasia 2+ Sickle Cells Occasional Target Cells 2+ Sodium 139 (136-145) mmol/L Potassium 3.8 (3.5-5.1) mmol/L Chloride 104 (98-107) mmol/L Carbon Dioxide 29 (21-32) mmol/L Anion Gap 6 (3-11) BUN 11 (6-23) mg/dl Creatinine 0.75 (0.6-1.4) mg/dl Est Cr Clr Drug Dosing 129.1 ml/min eGFR 128.43 BUN/Creatinine Ratio 14.7 (10-20) Glucose 77 (70-99(Fasting)) mg/dl Calcium 8.9 (8.6-10.3) mg/dl Total Bilirubin 1.5 H (0.2-1.0) mg/dl AST 29 (13-39) U/L ALT 9 (7-52) U/L Alkaline Phosphatase 73 (34-104) U/L Total Protein 7.2 (6.0-8.3) gm/dl Albumin 4.5 (3.4-5.0) gm/dl Globulin 2.7 (2.5-4.0) gm/dl Albumin/Globulin Ratio 1.7 (0.9-2) Administered Medications Discontinued Medications Hydromorphone HCl (Hydromorphone Inj 1 Mg/Ml Syringe) 1 mg IV NOW STA Stop: 10/18/24 09:31 Last Admin: 10/18/24 09:52 Dose: 1 mg Documented By: RONY Hydromorphone HCl (Hydromorphone Inj 0.5 Mg/0.5 Ml Syr) 0.5 mg IV NOW STA Stop: 10/18/24 10:44 Last Admin: 10/18/24 11:15 Dose: 0.5 mg Documented By: VEDA Hydromorphone HCl (Hydromorphone Inj 1 Mg/Ml Syringe) 1 mg IV NOW STA Stop: 10/18/24 12:05 Last Admin: 10/18/24 12:49 Dose: 1 mg Documented By: VEDA Sodium Chloride (Nss) 1,000 mls @ 999 mls/hr IV .Q1H1M ONE Stop: 10/18/24 10:30 Last Admin: 10/18/24 09:52 Dose: 999 mls/hr Documented By: RONY Ibuprofen (Ibuprofen 200 Mg Tab) 400 mg PO NOW STA Stop: 10/18/24 09:51 Last Admin: 10/18/24 09:53 Dose: 400 mg Documented By: RONY Imaging Data Radiologist's Impression: Chest X-Ray 10/18/24 09:29 XR chest 1V portable HISTORY: 24 years-old Male sickle cell pain, chest pain COMPARISON: Chest radiograph of same day at 4:24 AM TECHNIQUE: AP view of the chest FINDINGS: Cardiac silhouette is mildly enlarged. No pneumothorax or pleural effusion. Mild subsegmental bibasilar densities. The bones appear grossly intact. Right neck surgical clips. IMPRESSION: Cardiomegaly with mild subsegmental bibasilar densities favoring atelectasis. ACT 112: Negative or not required by law. The above report was generated using voice recognition software. It may contain grammatical, syntax or spelling errors. Electronically signed by: Johnnie Bergeron M.D. 10/18/2024 9:58 AM Discharge Plan Visit Data Chief Complaint: Pain (Generalized) Stated Complaint: PAIN EVERYWHERE, SICKLE CELL ED Provider: Tani Porras ED Midlevel Provider: Kristy Mederos Discharge Problem: Sickle cell crisis, Chest pain, Acute extremity pain Patient Disposition: Admitted As Inpatient Forms Stand Alone Forms: [facility] Prescriptions Prescriptions: No Action hydroxyurea 500 mg capsule 500 mg PO UD Rx Instructions: Day 1 & 2: 1000 mg QD Day 3: 500 mg QD;REPEAT PER MD. On 10/17/24 pt took 500mg. folic acid 1 mg tablet 1 mg PO DAILY Referrals Referrals: Willi Calderon M.D. [Primary Care Provider] -
[2024-10-18] MEDS: SODIUM CHLORIDE 0.9% 1,000 ML IV ONE (09:52)
[2024-10-18] MEDS: HYDROmorphone INJ 1 MG/ML SYRINGE IV STA ×3 (09:52→15:25)
[2024-10-18] MEDS: IBUPROFEN 200 MG TAB PO STA (09:53)
--- NOTE | 2024-10-18 09:59 | XRay Report ---
XR chest 1V portable HISTORY: 24 years-old Male sickle cell pain, chest pain COMPARISON: Chest radiograph of same day at 4:24 AM TECHNIQUE: AP view of the chest FINDINGS: Cardiac silhouette is mildly enlarged. No pneumothorax or pleural effusion. Mild subsegmental bibasil ar densities. The bones appear grossly intact. Right neck surgical clips. IMPRESSION: Cardiomegaly with mild subsegmental bibasilar densities favoring atelectasis. ACT 112: Negative or not required by law. The above report was generated using voice recognition software. It may contain grammatical, syntax o r spelling errors. Electronically signed by: Johnnie Bergeron M.D. 10/18/2024 9:58 AM
[2024-10-18 10:17] LABS: Hematocrit (blood only) 33.4 % (42.0-52.0); Hemoglobin 11.5 g/dl (14.0-18.0); Mean Corpuscular Hemoglobin 24.7 pg (25.0-34.0); Mean Corpuscular Hgb Conc 34.4 g/dL (32.0-36.0); Mean Corpuscular Volume 71.8 fL (80.0-100.0); Mean Platelet Volume 9.7 fL (9.4-12.4); Nucleated RBC # (auto) 0.36 K/uL (0.00-0.12); Nucleated RBC % (auto) 4.1 %; Platelet Count 227 K/uL (130-400); RDW Standard Deviation 44.7 fL (36.4-46.3); Red Blood Count 4.65 M/uL (4.70-6.10); White Blood Count 8.69 K/ul (4.8-10.8)
[2024-10-18 10:33] LABS: Basophils # (auto) 0.04 K/uL (0.00-0.20); Basophils % (auto) 0.5 %; Eosinophils # (auto) 0.02 K/uL (0.00-0.50); Eosinophils % (auto) 0.2 %; Immature Granulocytes # (auto) 0.36 K/uL (0.01-0.20); Immature Granulocytes % (auto) 4.1 %; Lymphocytes # (auto) 2.59 K/uL (1.20-3.40); Lymphocytes % (auto) 29.8 %; Monocytes # (auto) 0.51 K/uL (0.11-0.59); Monocytes % (auto) 5.9 %; Neutrophils # (auto) 5.17 K/uL (1.40-6.50); Neutrophils % (auto) 59.5 %; Polychromasia 2+; Sickle Cells Occasional; Target Cells 2+
[2024-10-18 10:34] LABS: Toxic Vacuolation 1+
[2024-10-18 10:36] LABS: Albumin Globulin Ratio 1.7 (0.9-2); Albumin Level 4.5 gm/dl (3.4-5.0); BUN Creatinine Ratio 14.7 (10-20); Bilirubin,Total 1.5 mg/dl (0.2-1.0); Calcium 8.9 mg/dl (8.6-10.3); Creatinine Clr Calc Pharmacy 129.1 ml/min; Globulin 2.7 gm/dl (2.5-4.0); Potassium 3.8 mmol/L (3.5-5.1); Total Protein 7.2 gm/dl (6.0-8.3)
[2024-10-18] MEDS: HYDROmorphone INJ 0.5 MG/0.5 ML SYR IV STA (11:15)
--- NOTE | 2024-10-18 13:06 | History & Physical Report ---
Date of Service October 18, 2024 Assessment & Plan (1) Sickle cell crisis: Plan: 28-year-old male with past medical history of sickle cell disease who presents with sickle cell pain crisis. He initially presented to the ED around 0200 on 10/18/24 with pain in all extremities, back, and chest. His pain was treated and controlled and he was discharged home. His pain returned at home despite taking Percocet so he returned to the ED. He denies any recent illness. Plan as outlined below was followed per patient's [facility] resource forester's recommendations. CXR without evidence of focal infiltrate to suggest acute chest; normal EKG 1/2 NSS at maintenance rate 100 cc/h Ibuprofen 400 mg p.o. Q6H PRN mild pain Dilaudid 1 mg IV Q1H PRN moderatesevere pain Benadryl 25 mg p.o. Q6H for itchiness associated with narcotic medications Narcan available for respiratory depression or oversedation Continue hydroxyurea at home dose: 100mg po on days 1 and 2 and 500mg po on day 3 then repeats the cycle Continue folic acid Plan VTE PPx: Low risk, encourage ambulation CODE STATUS: Full code History of Present Illness Chief Complaint: Sickle cell pain crisis Primary Care Provider: Willi S. Kvng Flores is a 24-year-old male with history of sickle cell disease who presents with acute pain crisis. He initially presented to the ED around 0200 with pain in all extremities, back, and chest, he rated his pain 5/10 at that time. He was given pain medication and his pain decreased to 2/10 and he was discharged home. When he got home, pain returned and was severe at 10/10. Medical took a Percocet at that time which reduced his pain to 4/10 and he napped for 1 hour. Upon waking up, his pain returned to 7/10 and he returned to the ED. Currently, he rates his pain 6/10 most prominently in his right arm and anterior lower chest. He reports that this anterior chest pain is similar to his previous sickle cell pain crises. He denies any recent illness, fever, chills, cough, nausea, vomiting, diarrhea, abdominal pain, shortness of breath, lightheadedness. CXR without evidence of focal infiltrate to suggest acute chest. His current presentation is consistent with his sickle cell crises. Patient informed he is a full code. Offered to call his parents, which he declined and states he has been updating them himself. Allergies Allergy/AdvReac Type Severity Reaction Status Date / Time fentanyl Allergy Intermediate Numbness Verified 10/18/24 11:36 Home Medications Medication Instructions Recorded Confirmed Type folic acid 1 mg tablet 1 mg PO DAILY 01/18/24 10/18/24 History hydroxyurea 500 mg capsule 500 mg PO UD 01/18/24 10/18/24 History Past Med/Surg History Problem List Acute extremity pain (Acute) Chest pain (Acute) Sickle cell crisis (Acute) No significant past surgical history Medical History Osteomyelitis Sickle cell disease Family History Other Sickle cell trait Social History Smoking Status: Never smoker Second Hand Exposure: No; Do You Dip or Chew Tobacco: No; Hx Alcohol Use: No Hx Substance Use: No Preferred Language: Central [place] Communication Ability: Effective Pbx Operator Required: No Beliefs That Will Affect Care: None Current Living Situation: Alone Other Information That Helps Us Care for You: No Feels Safe at Home: Yes Safety Concerns: Feels Safe At This Time Assistive Devices: None Physical Exam Physical Exam: General: No acute distress, nondiaphoretic, well-developed, well-nourished. Cardiac: Regular rate and rhythm without murmurs gallops or rubs. Pain on anterior lower chest pain. Pulm: Clear to auscultation bilaterally without wheezes, rales or rhonchi. No respiratory distress. 95% on room air. Abdominal: Soft, nontender, nondistended. Bowel sounds present. Neuro: A&O x3. No focal neurological deficits. Results & Data Results & Data Vital Signs (Past 12 Hours) Vital Signs Temp Pulse Pulse Resp BP BP Pulse Ox 10/18/24 13:00 76 16 138/92 95 10/18/24 11:06 73 17 119/80 96 10/18/24 10:39 63 96 10/18/24 10:30 117/80 10/18/24 10:30 59 L 16 98 10/18/24 10:18 60 19 96 10/18/24 10:00 121/85 10/18/24 09:59 69 10/18/24 09:16 97.7 F 66 18 118/77 100 O2 Del Method 10/18/24 13:00 Room Air 10/18/24 11:06 Room Air 10/18/24 10:39 Room Air 10/18/24 10:30 10/18/24 10:30 10/18/24 10:18 10/18/24 10:00 10/18/24 09:59 10/18/24 09:16 Room Air Laboratory Results Reviewed CBC Reviewed CMP Diagnostic Findings Chest X-Ray 10/18/24 09:29 XR chest 1V portable HISTORY: 24 years-old Male sickle cell pain, chest pain COMPARISON: Chest radiograph of same day at 4:24 AM TECHNIQUE: AP view of the chest FINDINGS: Cardiac silhouette is mildly enlarged. No pneumothorax or pleural effusion. Mild subsegmental bibasilar densities. The bones appear grossly intact. Right neck surgical clips. IMPRESSION: Cardiomegaly with mild subsegmental bibasilar densities favoring atelectasis. ACT 112: Negative or not required by law. The above report was generated using voice recognition software. It may contain grammatical, syntax or spelling errors. Electronically signed by: Johnnie Bergeron M.D. 10/18/2024 9:58 AM Supervising Physician Co-Signing Physician Notes I personally saw and examined the patient. I independently reviewed the labs, EKG, imaging, problem list, medication list, past medical history and family history. I verified all coronado points and agree with Cinthya Goode PA-C with the following exceptions and/or additions: 24 year old male with sickle cell disease presents to the ER with generalized pain consistent with prior episodes of sickle cell crisis. Hgb at baseline 11.5. Patient has crisis plan from [facility] on phone. O/E HS RRR, no murmurs, Chest CTAB, Abdo SNT A/P Sickle cell crisis - follow [facility] action plan with Dilaudid 1mg IV q1h PRN, half NSS, diphenhydramine for itching as needed, ibuprofen 400mg PO q6h PRN for pain. Consult hematology if not improving or Hgb dropping. PG Care Time/CCT Total # of Minutes Spent Total Time Spent with Patient: Total time spent is greater than 50% in coordination of care (as documented) at patient's floor/unit and/or counseling patient: Coding Level of Care Code 32273 INT INP/OBS CARE 2/55MIN Diagnoses Sickle cell crisis D57.00
[2024-10-18] MEDS: diphenhydrAMINE Capsule 25 MG CAP PO PRN (14:31)
[2024-10-18] MEDS ORDERED: HYDROXYUREA 500 MG CAP PO SCH (17:36)
[2024-10-18] MEDS ORDERED: diphenhydrAMINE Capsule 25 MG CAP PO PRN (17:36)
[2024-10-18] MEDS ORDERED: ONDANSETRON INJ 2 MG/ML 2 ML VIAL IV PRN (17:36)
[2024-10-18] MEDS ORDERED: NALOXONE HCL 0.4 MG/1 ML VIAL/CARP IV PRN (17:36)
[2024-10-18] MEDS: HYDROmorphone INJ 1 MG/ML SYRINGE IV PRN (17:51)
[2024-10-18] MEDS: SODIUM CHLORIDE 0.45 % 1,000 ML IV SCH (17:57)
[2024-10-18] MEDS: IBUPROFEN 200 MG TAB PO PRN (22:49)
--- NOTE | 2024-10-19 07:27 | Electrocardiogram Report ---
Test Reason : Blood Pressure : */* mmHG Vent. Rate : 64 BPM Atrial Rate : 64 BPM P-R Int : 194 ms QRS Dur : 86 ms QT Int : 366 ms P-R-T Axes : 71 45 50 degrees QTcB Int : 377 ms Normal sinus rhythm Normal ECG When compared with ECG of 03-Aug-2024 23:28, No significant change was found Confirmed by Jam Manzo ([id number]) on 10/19/2024 7:27:11 AM Referred By: Confirmed By: Jam Manzo
--- NOTE | 2024-10-19 08:40 | Hospitalist Progress Note ---
Date of Service October 19, 2024 Assessment & Plan (1) Sickle cell crisis: Plan: 28-year-old male with past medical history of sickle cell disease who presents with sickle cell pain crisis. He initially presented to the ED around 0200 on 10/18/24 with pain in all extremities, back, and chest. His pain was treated and controlled and he was discharged home. His pain returned at home despite taking Percocet so he returned to the ED. He denies any recent illness. 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 CXR without evidence of focal infiltrate to suggest acute chest; normal EKG .Retic count elevated/marrow working. Hgb stable 11 IVF w/ 10/12 nSS @ 100cc/hr Pain control - Ibuprofen 400mg q6h, dilaudid 1mg IV q1h mod-severe pain - Added oxycodone 20mg q4h as takes at home - Discussed w/ pharmacy, hydroxyurea 1000mg x 1 today, repeat tomorrow then 500mg following day. MISSED dose 10/18. Has in room - Benadryl 25mg q6h itchiness Narcan available IMPROVING but ongoing, better this morning after home oxycodone 20mg dose and then back to a 03/20 and RN to provide IV dilaudid x 1 now, consider REGIONAL MANAGER but reported not effective fro him in the past. Monitor repeat pain control- if worsening, will plan to consult hematology but hgb stable at this time. No labs from today but have been added and will review when available. Continued inpaitent stay Is [employer] senior, classes start on Wednesday. 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 Admission and Anticipated Discharge Date Admission Date: October 18, 2024 Supervising Physician Co-Signing Physician Notes The patient was not seen by me. The chart was reviewed. Case discussed with MONSE Zhou. Agree with assessment and plan Subjective Eval this afternoon, resting in bed. Pain was down to a 3 this morning but back to a 6/10, pain to right arm/chest similar to prior episodes. Had been staying hydrated, no alcohol/vomiting/recent illness. Reports having been resolved from his prior hip infection/concerns for osteo w/ levaquin for several weeks/over a month. Does report not as effective with dilaudid REGIONAL MANAGER int he past but did get his oxycodone this morning and brought pain to a 2 but again back to a 6. Discussed will give dilaudid IV 1mg now, then can take his usual oxycodone and will decrease frequency. He missed his hydroxyurea yesterday, has been resumed but also wondering if able to take his own medication as has with him.Will have nursing send down for relabel and can take his own. Discussed to let nursing know if pain improvement or worsens. Reports having regular follow up with his scrap wheeler, last crisis was when needed admitted in January last year. Is a senior at [employer], no school until this upcoming Wednesday, hopeful for dc to begin classess once pain control obtained. Denies issues with constipation on pain meds, will monitor. Physical Exam 2 Physical Exam: General: 24yo male resting in bed, covered up, friend at bedside, reporting pain to his right arm/chest, reproducible, NAD, VSS Head atraumatic, normocephalic, mm slightly dry, trachea midline Resp: even/unlabored, no wheezing/rales, on room air CV: RRR, no significant m/r/g, pain to anterior lower chest GI: +BS, soft/NT Psych: AOx3 , cooperative with exam Results & Data Results & Data Vital Signs (Past 12 Hours) Vital Signs Temp Pulse Resp BP Pulse Ox O2 Del Method O2 Flow Rate 10/19/24 07:39 36.6 C 64 16 109/67 100 Nasal Cannula 2 10/18/24 21:45 Nasal Cannula 2 Laboratory Results 10/18/24 09:50 10/18/24 09:50 PG Care Time/CCT Total # of Minutes Spent Total Time Spent with Patient: Total time spent is greater than 50% in coordination of care (as documented) at patient's floor/unit and/or counseling patient: Coding Level of Care Code 98805 SUB INP/OBS CARE 3/50MIN Diagnoses Sickle cell crisis D57.00
[2024-10-19] MEDS: HYDROXYUREA 500 MG CAP PO ONE (09:21)
[2024-10-19] MEDS: oxyCODONE HCL IR 5 MG TAB (IMMEDIATE RELEASE) PO PRN (09:26)
[2024-10-19] MEDS: FOLIC ACID 1 MG TAB PO SCH (09:34)
--- NOTE | 2024-10-19 13:38 | XRay Report ---
XR chest 1V portable CLINICAL HISTORY: f/u COMPARISON STUDY: 10/18/2024 FINDINGS: Heart size and pulmonary vasculature are normal. There is increased stranding opacity media l left lung base. No other consolidation or pleural effusion. IMPRESSION: Atelectasis versus early pneumonia left lung base. ACT 112: Negative or not required by law. Electronically signed by: Shen Rivas M.D. 10/19/2024 1:36 PM
[2024-10-19 15:31] LABS: Hematocrit (blood only) 33.5 % (42.0-52.0); Hemoglobin 11.5 g/dl (14.0-18.0); Mean Corpuscular Hemoglobin 24.4 pg (25.0-34.0); Mean Corpuscular Hgb Conc 34.3 g/dL (32.0-36.0); Mean Platelet Volume 9.4 fL (9.4-12.4); Nucleated RBC # (auto) 0.59 K/uL (0.00-0.12); Nucleated RBC % (auto) 4.3 %; Platelet Count 201 K/uL (130-400); RDW Coefficient of Variation 18.1 % (11.5-14.5); RDW Standard Deviation 44.4 fL (36.4-46.3); Red Blood Count 4.72 M/uL (4.70-6.10); White Blood Count 13.68 K/ul (4.8-10.8)
[2024-10-19 15:55] LABS: Albumin Level 4.5 gm/dl (3.4-5.0); Bilirubin Direct 0.4 mg/dl (0-0.2); Bilirubin,Total 1.6 mg/dl (0.2-1.0); Magnesium 1.6 mg/dl (1.7-2.4); Potassium 3.7 mmol/L (3.5-5.1)
[2024-10-19 16:00] LABS: BUN Creatinine Ratio 11.3 (10-20); Creatinine Clr Calc Pharmacy 121.2 ml/min; Total Protein 7.2 gm/dl (6.0-8.3)
[2024-10-19 16:41] LABS: Appearance Urine Clear (Clear); Bilirubin Urine Negative (Negative); Blood Urine Negative (Negative); Color Urine Yellow; Glucose Urine UA Negative (Negative); Ketones Urine Negative (Negative); Leukocyte Esterase Urine Negative (Negative); Nitrite Urine Negative (Negative); Protein Urine Negative (Negative); Specific Gravity Urine 1.009 (1.000-1.030); Urobilinogen Urine Negative (Negative)
[2024-10-19] MEDS: MAGNESIUM SULFATE / D5W 1 GM/100 ML BAG IV SCH (17:14)
[2024-10-19 18:11] LABS: Adenovirus PCR Not Detected (NotDetected); Bordetella parapertussis PCR Not Detected (NotDetected); Bordetella pertussis PCR Not Detected (NotDetected); Chlamydia pneumoniae PCR Not Detected (NotDetected); Coronavirus 229E PCR Not Detected (NotDetected); Coronavirus CoV-2 (COVID19)PCR Not Detected (NotDetected); Coronavirus HKU1 PCR Not Detected (NotDetected); Coronavirus NL63 PCR Not Detected (NotDetected); Coronavirus OC43PCR Not Detected (NotDetected); Human Metapneumovirus PCR Not Detected (NotDetected); Influenza A PCR Not Detected (NotDetected); Influenza B PCR Not Detected (NotDetected); Mycoplasma pneumoniae PCR Not Detected (NotDetected); Parainfluenza Virus 1 PCR Not Detected (NotDetected); Parainfluenza Virus 2 PCR Not Detected (NotDetected); Parainfluenza Virus 3 PCR Not Detected (NotDetected); Parainfluenza Virus 4 PCR Not Detected (NotDetected); Respiratory Syncytial VirusPCR Not Detected (NotDetected); Rhinovirus/Enterovirus PCR Not Detected (NotDetected)
[2024-10-19] MEDS: HEPARIN SOD 5,000 UNIT/0.5 ML VIAL SQ SCH (20:43)
[2024-10-20] MEDS: ACETAMINOPHEN 500 MG TAB PO PRN (01:04)
--- NOTE | 2024-10-20 02:51 | XRay Report ---
EXAM: XR chest 2V PA/lateral CLINICAL HISTORY: FEVER SICKLE SELL PT STATES GETTING A SHARP PAIN OVER MID STERNUM JMF TECHNIQUE: X-ray images of the chest were obtained in posteroanterior (PA) and lateral projections. COMPARISON: CR 10/18/2024 FINDINGS: Pulmonary Parenchyma: No evidence of consolidation, or focal opacities. No pulmonary nodules identified. Blunting of right costophrenic angle seen, and minimal blunting of left costophrenic angle is also identified Indeterminate tube is projecting over the left hemithorax Heart and Mediastinum: Heart size and shape are normal. No mediastinal widening or masses. Prominent both andrea likely due to hilar vessels, small nodular density seen in the right hilum Bony Thorax: Bony thorax appears intact without fractures or deformities. Soft Tissues: Prominent bowel gas shadow seen in left upper abdomen IMPRESSION: 1. Blunting of both costophrenic angles, relatively greater on the right side likely due to pleural effusion. Ultrasound correlation is advised. This was not seen in prior examination 2. Bilateral hilar vascular congestion with changes are more marked in the right hilum in current examination, and small right hilar nodular density which is apparent in present examination raising the suspicion of lymph node 3. Indeterminate tube is projecting over the left hemithorax, which was not seen in prior examination. Clinical correlation is advised Electronically signed by Naya June 10-20-2024 02:50 AM
[2024-10-20] MEDS: cefTRIAXone SODIUM 2,000 MG/50 ML BAG IV SCH (03:00)
--- NOTE | 2024-10-20 03:27 | Communication Note ---
Date of Service: October 20, 2024 Alerted by nursing that patient had developed fever, tachycardia and subsequently chest pain. EKG obtained shows sinus tachycardia. CXR obtained showed possible sm b/l pleural effusion, b/l hilar vascular congestion. Leukocytosis noted on labs from 10/19 afternoon. No increased oxygen requirement. Given Tylenol, Dilaudid, started on ceftriaxone. Does not appear to represent acute chest syndrome at this time, but low threshold for transfer with any worsening symptoms. Hematology consultation placed. Resident Activity Tracking Resident Involvement: Resident Care Provided Care Provided: Adult [facility] Medicine
[2024-10-20 07:54] LABS: Hematocrit (blood only) 33.2 % (42.0-52.0); Hemoglobin 11.4 g/dl (14.0-18.0); Mean Corpuscular Hemoglobin 24.3 pg (25.0-34.0); Mean Corpuscular Hgb Conc 34.3 g/dL (32.0-36.0); Mean Corpuscular Volume 70.6 fL (80.0-100.0); Mean Platelet Volume 9.4 fL (9.4-12.4); Nucleated RBC # (auto) 0.21 K/uL (0.00-0.12); Nucleated RBC % (auto) 1.7 %; Platelet Count 176 K/uL (130-400); RDW Coefficient of Variation 17.8 % (11.5-14.5); RDW Standard Deviation 43.8 fL (36.4-46.3); White Blood Count 12.47 K/ul (4.8-10.8)
--- NOTE | 2024-10-20 08:26 | Hospitalist Progress Note ---
Date of Service October 20, 2024 Assessment & Plan (1) Sickle cell crisis: Plan: 28-year-old male with past medical history of sickle cell disease who presents with sickle cell pain crisis. He initially presented to the ED around 0200 on 10/18/24 with pain in all extremities, back, and chest. His pain was treated and controlled and he was discharged home. His pain returned at home despite taking Percocet so he returned to the ED. He denies any recent illness. 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 CXR without evidence of focal infiltrate to suggest acute chest on admission with normal EKG. Retic count elevated and hgb 11 with baseline 10-11 Placed on IVF w/ 1/2 NS x 2 L w/ pain control per his primary team w/ ibuprofen/Dilaudid and benadryl for itchiness, continue hydroxyurea (takes 1g, 1g, 500mg and repeats cycle) Better AM 10/19 after home oxycodone 20mg dose added but then was around a 6 requiring IV Dilaudid and had been stable in the evening however consult for heme/onc while inpatient placed given increased pain from admission for recs/assistance, biofire sent given CP reports and student which was negative and CXR obtained which noted atelectasis and incentive spirometer ordered/enc ouraged Repeat CXR at that time with possible atelectasis and IS ordered but appears to have progressed on repeat overnight with development of fever (Tmax 38.7C), tachycardia (EKG w/ sinus tachycardia) and SOB (no hypoxia/O2 req but was placed on supp O2) and blood cx obtained. Ceftriaxone 2gm IV daily ordered, continued Low threshold/concerns for acute chest syndrome w/ criteria w/ infiltrate on imaging/fever/tachycardia and CP and will move to monitored bed/follow up CXR in AM but consider CT chest if needed. Pain MUCH better controlled and reporting 0/10 this morning when seen Heme/onc consult pending, to be seen in AM per message this morning sent. Hgb remains stable following IVF at 11.4, baseline 10- Pain control: Continue Oxycodone 20mg as needed as taking last year but ran out as hadn't had to use much. Dilaudid 1mg IV available for severe pain/breakthrough but also continues on hydroxyurea, ibuprofen/tylenol as needed PO hydration encouraged, bowel regimen if needed Continued inpatient stay, f/u blood cx and monitor for need for CT chest imaging but appears much improved since abx Labs in AM (2) Chest pain: Plan: as above, suspected 2nd to crisis however ?2nd to early PNA given events overnight. No CP reported today when seen this morning EKG w/ sinus tach, HR improved Given above, plans to move to monitored bed, f/u CXR in AM Continue heparin SQ for DVT proph, no pleuritic CP/pain with inspiration reported Pain control as above effective/continued (3) Pneumonia: Plan: suspected/concerns for such continue abx/follow blood cxs and f/u cxr imaging in AM (4) Fever: Plan: as above, concerns for infection and abx/blood cx no further fever since overnight, tylenol available if needed and will monitor Plan VTE PPx: SCDs, Heparin SQ added 10/19 given sickle cell/high risk for DVT Dispo: continued inpatient stay, moving to monitored bed for closer observation/monitoring of HR. continue abx/monitoring blood cx and heme/onc to see in AM. Low threshold to consider transfer if needing but reporting feeling better and will continue current course for now. Admission and Anticipated Discharge Date Admission Date: October 18, 2024 Supervising Physician Co-Signing Physician Notes The patient was not seen by me. The chart was reviewed. Case discussed with MONSE Zhou. Agree with assessment and plan Subjective Eval this morning, had episode fever/tachycardia/Sob overnight, biofire prior negative but cxr w/ possible early pna and started ceftriaxone IV/blood cx obtained. Reports feeling much better this morning, pain 0/10 and controlled w/ ordered meds w/ exception pain to his right should feeling like nerve injury. Pulse present, plastic block boiler reliner strength excellent but will have nursing move IV site for comfort. Has not yet see heme/onc but will message for discussion this morning but given improvement will continue current course. Passing gas but no BM, feels like will be able to after he eats breakfast. No nausea/vomiting. Questions/concerns addressed at this time. Physical Exam Physical Exam: General: 24yo male more awake/alert, less painful today but discomfort to his right shoulder from IV site/requesting change HEENT: head atraumatic, normocephalic, mm improved, trachea midline Resp: even/unlabored but slightly diminished in the bases, crackles R>L in the bases but no wheezing/rales, on ROOM AIR this morning (2L overnight), SpO2 mid 90s CV: RRR, no significant m/r/g, no pitting edema GI: +BS, soft/slight distension but nontender MSK/Neuro: nonfocal, moves all extremities, pulses present in extremities, good plastic block boiler reliner strength/sensation Psych: AOx3, cooperative/pleasant with exam Results & Data Results & Data Vital Signs (Past 12 Hours) Vital Signs Temp Pulse Resp BP BP Pulse Ox O2 Del Method 10/20/24 03:04 36.9 C 10/20/24 01:56 38.2 C H 10/20/24 01:08 38.0 C H 114 H 20 124/79 97 Nasal Cannula 10/20/24 00:56 38.7 C H 105 H 10/19/24 20:43 37.3 C 10/19/24 20:31 37.9 C H 113 H 18 118/82 98 Nasal Cannula O2 Flow Rate 10/20/24 03:04 10/20/24 01:56 10/20/24 01:08 2 10/20/24 00:56 10/19/24 20:43 10/19/24 20:31 2 PG Care Time/CCT Total # of Minutes Spent Total Time Spent with Patient: Total time spent is greater than 50% in coordination of care (as documented) at patient's floor/unit and/or counseling patient: Coding Level of Care Code 30021 SUB INP/OBS CARE 3/50MIN Diagnoses Sickle cell crisis D57.00 Chest pain R07.9 Pneumonia J18.9 Fever R50.9
[2024-10-20 08:28] LABS: Albumin Level 4.3 gm/dl (3.4-5.0); BUN Creatinine Ratio 13.2 (10-20); Bilirubin Direct 0.3 mg/dl (0-0.2); Bilirubin,Total 1.4 mg/dl (0.2-1.0); Calcium 9.2 mg/dl (8.6-10.3); Creatinine Clr Calc Pharmacy 127.6 ml/min; Magnesium 1.9 mg/dl (1.7-2.4); Potassium 3.8 mmol/L (3.5-5.1); Total Protein 7.4 gm/dl (6.0-8.3)
[2024-10-20] MEDS ORDERED: HYDROXYUREA 500 MG CAP PO SCH (09:00)
[2024-10-20] MEDS: HYDROXYUREA 500 MG CAP PO ONE (10:02)
[2024-10-20] MEDS: OXYMETAZOLINE 0.05% 30 ML BTL NAE ONE (10:47)
--- NOTE | 2024-10-20 17:29 | Electrocardiogram Report ---
Test Reason : Blood Pressure : */* mmHG Vent. Rate : 105 BPM Atrial Rate : 105 BPM P-R Int : 160 ms QRS Dur : 82 ms QT Int : 296 ms P-R-T Axes : 37 30 23 degrees QTcB Int : 391 ms Sinus tachycardia Otherwise normal ECG When compared with ECG of 18-Oct-2024 09:49, Vent. rate has increased by 41 bpm Confirmed by Jam Manzo ([id number]) on 10/20/2024 5:28:43 PM Referred By: Willi Calderon Confirmed By: Jam Manzo
[2024-10-21 07:09] LABS: Basophils # (auto) 0.04 K/uL (0.00-0.20); Basophils % (auto) 0.3 %; Eosinophils # (auto) 0.07 K/uL (0.00-0.50); Eosinophils % (auto) 0.5 %; Hemoglobin 11.3 g/dl (14.0-18.0); Immature Granulocytes # (auto) 0.09 K/uL (0.01-0.20); Immature Granulocytes % (auto) 0.6 %; Lymphocytes # (auto) 1.71 K/uL (1.20-3.40); Mean Corpuscular Hemoglobin 24.1 pg (25.0-34.0); Mean Corpuscular Hgb Conc 34.2 g/dL (32.0-36.0); Mean Corpuscular Volume 70.5 fL (80.0-100.0); Mean Platelet Volume 9.4 fL (9.4-12.4); Monocytes # (auto) 1.46 K/uL (0.11-0.59); Monocytes % (auto) 10.3 %; Neutrophils # (auto) 10.83 K/uL (1.40-6.50); Neutrophils % (auto) 76.3 %; Nucleated RBC # (auto) 0.14 K/uL (0.00-0.12); Platelet Count 190 K/uL (130-400); RDW Coefficient of Variation 17.3 % (11.5-14.5); RDW Standard Deviation 42.8 fL (36.4-46.3); Red Blood Count 4.68 M/uL (4.70-6.10); Reticulocyte % 3.88 % (0.50-2.00)
[2024-10-21 07:25] LABS: Albumin Globulin Ratio 1.3 (0.9-2); Albumin Level 4.4 gm/dl (3.4-5.0); BUN Creatinine Ratio 21.6 (10-20); Bilirubin,Total 1.2 mg/dl (0.2-1.0); Calcium 9.3 mg/dl (8.6-10.3); Creatinine Clr Calc Pharmacy 131.7 ml/min; Globulin 3.4 gm/dl (2.5-4.0); Magnesium 1.8 mg/dl (1.7-2.4); Potassium 4.1 mmol/L (3.5-5.1); Total Protein 7.8 gm/dl (6.0-8.3)
[2024-10-21 07:59] VITALS: TEMP 97.5
--- NOTE | 2024-10-21 08:17 | Hospitalist Progress Note ---
Date of Service October 21, 2024 Assessment & Plan (1) Sickle cell crisis: Plan: 28-year-old male with past medical history of sickle cell disease who presents with sickle cell pain crisis. He initially presented to the ED around 0200 on 10/18/24 with pain in all extremities, back, and chest. His pain was treated and controlled and he was discharged home. His pain returned at home despite taking Percocet so he returned to the ED. He denies any recent illness. 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 CXR without evidence of focal infiltrate to suggest acute chest on admission with normal EKG. Retic count elevated and hgb 11 with baseline 10-11 Placed on IVF w/ 1/2 NS x 2 L w/ pain control per his primary team w/ ibuprofen/Dilaudid and benadryl for itchiness, continue hydroxyurea (takes 1g, 1g, 500mg and repeats cycle) Better AM 10/19 after home oxycodone 20mg dose added but then was around a 6 requiring IV Dilaudid and had been stable in the evening however consult for heme/onc while inpatient placed given increased pain from admission for recs/assistance, biofire sent given CP reports and student which was negative and CXR obtained which noted atelectasis and incentive spirometer ordered/enc ouraged Repeat CXR at that time with possible atelectasis and IS ordered but appears to have progressed on repeat overnight with development of fever (Tmax 38.7C), tachycardia (EKG w/ sinus tachycardia) and SOB (no hypoxia/O2 req but was placed on supp O2) and blood cx obtained. Ceftriaxone 2gm IV daily ordered, continued Low threshold/concerns for acute chest syndrome w/ criteria w/ infiltrate on imaging/fever/tachycardia and CP and will move to monitored bed/follow up CXR in AM but consider CT chest if needed. Pain MUCH better controlled and reporting 0/10 this morning when seen Heme/onc consult pending, to be seen in AM per message this morning sent. Hgb remains stable following IVF at 11.4, baseline 10- Pain control: Continue Oxycodone 20mg as needed as taking last year but ran out as hadn't had to use much. Dilaudid 1mg IV available for severe pain/breakthrough but also continues on hydroxyurea, ibuprofen/tylenol as needed PO hydration encouraged, bowel regimen if needed Continued inpatient stay, f/u blood cx and monitor for need for CT chest imaging but appears much improved since abx Labs in AM (2) Chest pain: Plan: as above, suspected 2nd to crisis however ?2nd to early PNA given events overnight. No CP reported today when seen this morning EKG w/ sinus tach, HR improved Given above, plans to move to monitored bed, f/u CXR in AM Continue heparin SQ for DVT proph, no pleuritic CP/pain with inspiration reported Pain control as above effective/continued (3) Pneumonia: Plan: suspected/concerns for such continue abx/follow blood cxs and f/u cxr imaging in AM (4) Fever: Plan: as above, concerns for infection and abx/blood cx no further fever since overnight, tylenol available if needed and will monitor Plan VTE PPx: SCDs, Heparin SQ added 10/19 given sickle cell/high risk for DVT Dispo: continued inpatient stay, moving to monitored bed for closer observation/monitoring of HR. continue abx/monitoring blood cx and heme/onc to see in AM. Low threshold to consider transfer if needing but reporting feeling better and will continue current course for now. Admission and Anticipated Discharge Date Admission Date: October 18, 2024 Subjective Eval this morning, sitting up in bed on his phone. On room air, breathing improved. Pain under much better control today. No pain with inspiration/pleuritic pain. Discussed CTA chest and if negative for PE/unremarkable will plan for dc on Levaquin x 7 days with hematology folllow up. Will send rx for the oxycodone 20mg in meantime until follow up to assist with pain control if needed/prevent readmission. Will provide school note for Wednesday in event not feeling well enough to return to school for another day but hopeful to retun. Passing more gas, feeling belly move but no BM. Bowel regimen/ambulation encour aged. Looks/appears well otherwise. Results & Data Results & Data Vital Signs (Past 12 Hours) Vital Signs Temp Pulse Pulse Resp BP BP Pulse Ox 10/21/24 07:58 36.4 C L 66 17 140/81 91 10/21/24 07:53 96 H 10/21/24 05:45 36.5 C 10/21/24 04:00 37.5 C 87 18 107/63 94 10/20/24 22:27 36.8 C 86 16 114/75 95 10/20/24 22:00 86 O2 Del Method 10/21/24 07:58 Room Air 10/21/24 07:53 10/21/24 05:45 10/21/24 04:00 Room Air 10/20/24 22:27 Room Air 10/20/24 22:00 PG Care Time/CCT Total # of Minutes Spent Total Time Spent with Patient: Total time spent is greater than 50% in coordination of care (as documented) at patient's floor/unit and/or counseling patient: Coding Diagnoses Sickle cell crisis D57.00 Chest pain R07.9 Pneumonia J18.9 Fever R50.9
--- NOTE | 2024-10-21 08:30 | Oncology Consultation ---
Date of Consultation October 21, 2024 Assessment & Plan (1) Fever: (2) Pneumonia: (3) Acute extremity pain: (4) Chest pain: (5) Sickle cell crisis: Plan -He appears to be doing much better clinically. However, prior to discharge would recommend getting CT chest to evaluate possible hilar lymphadenopathy and new effusion. If CT chest is unremarkable, he should be able to go home later today if he continues to do well clinically. -If he goes home today, would recommend continuing antibiotics with levofloxacin for 7 days. -He will follow-up with outpatient rn neurosurgical at [facility] upon discharge Thank you for this consult. Hematology will continue following patient. Please feel free to call if you have any other questions. History of Present Illness Reason for Consultation: Sickle cell crisis Attending Physician: Ruben Glez MD History of Present Illness 23-year-old gentleman with sickle cell anemia followed by Dr. Calderon at [facility] [place] who was admitted to [facility] on 10/18/2024 with acute pain crisis. Chest x-ray obtained on Admission was unremarkable. Repeat Chest x-ray on showed blunting of both costophrenic angles, related to be greater on the right side likely due to pleural effusion, bilateral hilar vascular congestion in the right hilum and current examination and small right hilar nodular density raising suspicion of lymph node. He denies chest pain, shortness of breath. States that he is doing much better. He is currently on IV antibiotics for possible pneumonia Allergies Allergy/AdvReac Type Severity Reaction Status Date / Time fentanyl Allergy Intermediate Numbness Verified 10/18/24 11:36 Home Medications Medication Instructions Recorded Confirmed Type folic acid 1 mg tablet 1 mg PO DAILY 01/18/24 10/18/24 History hydroxyurea 500 mg capsule 500 mg PO UD 01/18/24 10/18/24 History Patient History Medical History Osteomyelitis Sickle cell disease Family History Other Sickle cell trait Social History Smoking Status: Never smoker Second Hand Exposure: No; Do You Dip or Chew Tobacco: No; Hx Alcohol Use: No Hx Substance Use: No Preferred Language: Czech Communication Ability: Effective 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 Beliefs That Will Affect Care: None Current Living Situation: Alone Other Information That Helps Us Care for You: No Feels Safe at Home: Yes Safety Concerns: Feels Safe At This Time Assistive Devices: None Results & Data Vital Signs (Past 12 Hours) Vital Signs Temp Pulse Pulse Resp BP BP Pulse Ox 10/21/24 07:58 36.4 C L 66 17 140/81 91 10/21/24 07:53 96 H 10/21/24 05:45 36.5 C 10/21/24 04:00 37.5 C 87 18 107/63 94 10/20/24 22:27 36.8 C 86 16 114/75 95 10/20/24 22:00 86 O2 Del Method 10/21/24 07:58 Room Air 10/21/24 07:53 10/21/24 05:45 10/21/24 04:00 Room Air 10/20/24 22:27 Room Air 10/20/24 22:00
--- NOTE | 2024-10-21 08:50 | XRay Report ---
XR chest 1V portable CLINICAL HISTORY: f/u ss crisis, acute chest/infiltrate TECHNIQUE: Single frontal radiograph of the chest was obtained. Comparison: Comparison is made to chest radiograph 10/20/2024 FINDINGS: No lines and tubes are seen. The cardiomediastinal silhouette is normal. Small airspace opacities are seen in the bilateral lower lungs. There is crescentic density below the left hemidiaphragm which li mo represents a loop of bowel, however attention on the CTA chest which has already been ordered is recommended to exclude pneumoperitoneum. IMPRESSION: Small airspace opacities in the bilateral lower lungs are nonspecific and may represent findings of a cute chest syndrome versus atelectasis. ACT 112: Negative or not required by law. Electronically signed by: Dima Colvin M.D. 10/21/2024 8:48 AM
[2024-10-21] MEDS: HYDROXYUREA 500 MG CAP PO SCH (09:18)
[2024-10-21] MEDS: OPTIRAY 320 125ml IV ONE (09:36)
--- NOTE | 2024-10-21 10:22 | CT Scan Report ---
CT angio chest PE protocol CLINICAL HISTORY: PE TECHNIQUE: Multidetector row helical CT of the chest was performed with angiographic protocol. Wu l and sagittal reformations were obtained. Coronal and sagittal MIPS were obtained from the axial bing a set and were submitted for review. Automated dose lowering techniques and/or adjustment according to patient size were utilized for this exam. CT DOSE: 426.22 mGy.cm Comparison: None available at the time of this dictation. FINDINGS: Lungs and pleura: Multifocal airspace opacity is seen with trace right pleural effusion. Heart and pericardium: Heart size is normal. No pericardial effusion. Vessels: No evidence of pulmonary embolism. Mediastinum and andrea: Unremarkable. Chest wall and lower neck: Subcentimeter axillary lymph nodes noted. Abdomen: Unremarkable. Bones: Mottled sclerosis is seen in the bones. IMPRESSION: 1. No evidence of pulmonary embolus. 2. Airspace opacities are seen in the bilateral lower lungs with a focus of right atelectasis, whitney rning for acute chest syndrome. Trace right pleural effusion is seen. 3. Mottled appearance of the bones may reflect history of sickle cell disease as well. ACT 112: Negative or not required by law. Electronically signed by: Dima Colvin M.D. 10/21/2024 10:19 AM
--- NOTE | 2024-10-21 11:31 | Discharge Summary ---
Discharge Summary Date of Service October 21, 2024 Principal Dx & Hospital Course #1 = Principal Diagnosis (1) Sickle cell crisis: 28-year-old male with past medical history of sickle cell disease who presents with sickle cell pain crisis. He initially presented to the ED around 0200 on 10/18/24 with pain in all extremities, back, and chest. His pain was treated and controlled and he was discharged home. His pain returned at home despite taking Percocet so he returned to the ED. He denied any recent illness. Patient's [facility] air transport professionals's recommendations w/ /2 NS for hydration, ibuprofen/Tylenol, Dilaudid, Benadryl as needed and continued hydroxyurea. CXR negative on admission reported (however notable report does report mild subsegmental bibasilar densities favoring atelectasias) Retic count elevated compared to priors/marrow working, hgb 11.5 on admission with baseline 10-11 Had improvement in pain 1/9 AM following addition of prior effective oxycodone 20mg for oral pain control down to 310 but then increased to 6/10 with reports of CP and repeat CXR obtained w/ possible atelectasis and wasn't provided incentive spirometer but denied cough/sputum production but was checked with biofire which was negative and incentive spirometer ordered/encouraged however developed fever/tachycardia/SOB (without O2 req/hypoxia but was placed on 2L for support) with Tmax 38.7 and EKG w/ sinus tachycardia and blood cultures were obtained and provided Ceftriaxone 2gm IV and repeat CXR w/ concerns for new pleural effusion/bilateral hilar congestion with small R hilar nodular density raising susp for lymph node at that time and heme/onc consult had been pending from night before. Findings did meet for acute chest syndrome and was tx to monitored bed for completeness but reported significant improvement in pain and did not exam as acute chest at that time/CT deferred per supervising provider. Discussed with Dr Amanda from heme/onc given patient without further significant pain/appeared to be doing great and no further fevers/tachycardia and remained on room air and denied pleuritic CP/pain with inspiration however agreed to obtain CTA for eval PE protocol as had ordered heparin SQ but patient had declined this. CTA NEGATIVE for PE but did note concerns for acute chest syndrome and discussed with Dr Amanda given examination and consultation and was asked to ambulate in the halls and lowest O2 sat dropped to 92% but was 94% prior to discharge and ok'd to discharge on Levaquin 750mg daily for 7 day course. Was provided dose prior to discharge and six additional day remaining. STRICT INSTRUCTIONS TO RETURN TO ER IF ANY DEVELOPMENT OF RESPIRATORY SYMPTOMS as if truly acute chest could always change. Did update patient and sister in room regarding plan and send rx for oxycodone 20mg as needed and she will be staying with him next couple days and agreed to monitor/bring him back if symptoms/needed or any other concerns. Blood cx negative at time of discharge. WBC was elevated but suspect stress/pain response as had been afebrile since that time and tx as discussed/outlined. Encouraged adequate hydration, pain control, rest and follow up with air transport professionals Dr Calderon at discharge. Again, encouraged to return if any development of sx concerning for acute chest. School note provided (2) Chest pain: as above, suspected 2nd to crisis however concerns for acute chest/CT chest obtained. Neg for PE, stable telemetry and improvement with pain control and antibiotics which were continued No further CP at time of dc but again encouraged to return to ER EV[facility] if this occurs. Encouraged continued use of incentive spirometer (3) Pneumonia: concerns for such/early pna vs acute chest. Biofire negative -- CT chest not noting consolidation but noting opacities in b/l lungs w/ focus atelectasis on the right w/ trace effusion. No evidence for PE Abx as outlined above, blood cultures sent when febrile but has been afebrile since and remains on RA. Return to ER if worsening but recs for Levaquin at dc as above per oncology (4) Fever: as above, concerns for infection vs other and abx started and blood cx obtained Has been afebrile since temp on overnight into AM 1/10 at max 38.7C without further elevation continue pain control/tylenol as needed but to return to ER if worsening sx blood cx negative x 24hr at dc and was discharged on Levaquin x 7 days per oncology Plan VTE PPx: SCDs, Heparin SQ added 10/19 given sickle cell/high risk for DVT however declined while inpatient. No evidence for DVT on exam and CT chest NEGATIVE for PE Dispo: discharged home with sister/school note on Levaquin PO, oxycodone 20mg as needed for ongoing control and rec to f/u Dr Calderon his usual air transport professionals at discharge but TO RETURN TO ER IF ANY SX concerning for acute chest but discussed w/ hematology and visited Mark multiple times day of discharge for discussion and remained the best I've seen him all admission. Notes For Next Care Provider Ensure follow up with usual air transport professionals, ensure blood cultures negative but per Dr Amanda from hematology ok for Levaquin PO x 7 day course at dc with close follow up. Did encouraged no heavy activity/excercise Doing well despite CT concerns for acute chest and ok'd for discharge but strongly encouraged hydration/pain control/rest at discharge and if any respiratory sx/fever/cp to return to ER evelio Medication Changes From Visit Levaquin 750mg PO daily x 7 days Oxycodone 20mg prn Admission HPI Per Admitting Provider Mark is a 24-year-old male with history of sickle cell disease who presents with acute pain crisis. He initially presented to the ED around 0200 with pain in all extremities, back, and chest, he rated his pain 5/10 at that time. He was given pain medication and his pain decreased to 2/10 and he was discharged home. When he got home, pain returned and was severe at 10/10. Medical took a Percocet at that time which reduced his pain to 4/10 and he napped for 1 hour. Upon waking up, his pain returned to 7/10 and he returned to the ED. Currently, he rates his pain 6/10 most prominently in his right arm and anterior lower chest. He reports that this anterior chest pain is similar to his previous sickle cell pain crises. He denies any recent illness, fever, chills, cough, nausea, vomiting, diarrhea, abdominal pain, shortness of breath, lightheadedness. CXR without evidence of focal infiltrate to suggest acute chest. His current presentation is consistent with his sickle cell crises. Patient informed he is a full code. Offered to call his parents, which he declined and states he has been updating them himself. Admission Exam Per Admitting Provider General: No acute distress, nondiaphoretic, well-developed, well-nourished. Cardiac: Regular rate and rhythm without murmurs gallops or rubs. Pain on anterior lower chest pain. Pulm: Clear to auscultation bilaterally without wheezes, rales or rhonchi. No respiratory distress. 95% on room air. Abdominal: Soft, nontender, nondistended. Bowel sounds present. Neuro: A&O x3. No focal neurological deficits. 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 During your stay at [facility], we have made an effort to correct the problem that brought you to the hospital while keeping you as comfortable as possible. Medications were used to bring your condition under control and your discharge instructions will include directions for any medications you should take after leaving the hospital. Please make sure you see your Primary Care Provider as part of your follow up plan. Activity: As commented below Non-emergency contact: Primary Care Provider and Oncologist Call non-emergency contact if: you have any medication questions, your symptoms worsen, your pain is concerning for you and you have a fever Follow-up/Referrals: Willi Calderon M.D. [Primary Care Provider] - Diet: Regular Addtl Attending Provider Instructions: You have been hospitalized for sickle cell pain crisis. Pain control and fluids have been provided but given fever/tachycardia/shortness of breath we did get blood cultures which are negative at this time. We completed CT chest imaging which did not show clot but does have concerns for acute chest syndrome however given exam and comfortable pain control without drop in oxygen, Dr Amanda believes we can send you on LEVAQUIN 750mg by mouth daily for 7 days and strict instructions to return to ER if any worsneing pain/respiratory/breathing symptoms to the ER immediately as this can change. We are sending the oxycodone as discussed to use for pain but also recommend following up with Dr Calderon for ongoing management in follow up as well. Continue your hydroxyurea as instructed and can continue ibuprofen/tylenol for nonsevere pain. Please again return to ER if ANY symptoms with breathing or fever/chills/uncontrolled pain or other symptoms concerning for you. It has been a pleasure being a part of the medical team providing for you while you have been in the hospital. Take care! Pending Studies at Discharge: Yes Studies:: blood cultures -- no growth to date Stand-Alone Forms: My [facility] [employer], Work/School Release, Smoking Cessation Medications and DC Order Prescriptions: New levofloxacin 750 mg tablet 750 mg PO DAILY 6 Days Qty: 6 0RF oxycodone 20 mg tablet 20 mg PO Q6H PRN (Reason: pain) Qty: 20 0RF Continued hydroxyurea 500 mg capsule 500 mg PO UD Rx Instructions: Day 1 & 2: 1000 mg QD Day 3: 500 mg QD;REPEAT PER MD. On 10/17/24 pt took 500mg. folic acid 1 mg tablet 1 mg PO DAILY Discharge Orders: Discharge Order (Routine); Ordered 10/21/24 Ordered By: Aiyana Aparicio Admission Data Admit Date/Time: 10/18/24 13:38 Attending Provider: Ruben Glez Admit Provider: Sha Kelsey Primary Care Provider: Willi Calderon Other Providers: Sha Kelsey; Jamia Amanda Other Interventions: Discharge Summary Assessment (RN) Last Done: 10/21/24 12:22 Hospital Stay Data Consultations 10/18/24 12:45 ED Decision to Admit Stat 10/19/24 17:24 Consult Hematology Routine Diagnostic Imagining Performed Chest X-Ray 10/18/24 09:29 XR chest 1V portable HISTORY: 24 years-old Male sickle cell pain, chest pain COMPARISON: Chest radiograph of same day at 4:24 AM TECHNIQUE: AP view of the chest FINDINGS: Cardiac silhouette is mildly enlarged. No pneumothorax or pleural effusion. Mild subsegmental bibasilar densities. The bones appear grossly intact. Right neck surgical clips. IMPRESSION: Cardiomegaly with mild subsegmental bibasilar densities favoring atelectasis. ACT 112: Negative or not required by law. The above report was generated using voice recognition software. It may contain grammatical, syntax or spelling errors. Electronically signed by: Johnnie Bergeron M.D. 10/18/2024 9:58 AM Chest X-Ray 10/19/24 13:16 XR chest 1V portable CLINICAL HISTORY: f/u COMPARISON STUDY: 10/18/2024 FINDINGS: Heart size and pulmonary vasculature are normal. There is increased stranding opacity medial left lung base. No other consolidation or pleural effusion. IMPRESSION: Atelectasis versus early pneumonia left lung base. ACT 112: Negative or not required by law. Electronically signed by: Shen Rivas M.D. 10/19/2024 1:36 PM Chest X-Ray 10/20/24 01:32 EXAM: XR chest 2V PA/lateral CLINICAL HISTORY: FEVER SICKLE SELL PT STATES GETTING A SHARP PAIN OVER MID STERNUM JMF TECHNIQUE: X-ray images of the chest were obtained in posteroanterior (PA) and lateral projections. COMPARISON: CR 10/18/2024 FINDINGS: Pulmonary Parenchyma: No evidence of consolidation, or focal opacities. No pulmonary nodules identified. Blunting of right costophrenic angle seen, and minimal blunting of left costophrenic angle is also identified Indeterminate tube is projecting over the left hemithorax Heart and Mediastinum: Heart size and shape are normal. No mediastinal widening or masses. Prominent both andrea likely due to hilar vessels, small nodular density seen in the right hilum Bony Thorax: Bony thorax appears intact without fractures or deformities. Soft Tissues: Prominent bowel gas shadow seen in left upper abdomen IMPRESSION: 1. Blunting of both costophrenic angles, relatively greater on the right side likely due to pleural effusion. Ultrasound correlation is advised. This was not seen in prior examination 2. Bilateral hilar vascular congestion with changes are more marked in the right hilum in current examination, and small right hilar nodular density which is apparent in present examination raising the suspicion of lymph node 3. Indeterminate tube is projecting over the left hemithorax, which was not seen in prior examination. Clinical correlation is advised Electronically signed by aNya June 10-20-2024 02:50 AM Chest X-Ray 10/21/24 07:00 XR chest 1V portable CLINICAL HISTORY: f/u ss crisis, acute chest/infiltrate TECHNIQUE: Single frontal radiograph of the chest was obtained. Comparison: Comparison is made to chest radiograph 10/20/2024 FINDINGS: No lines and tubes are seen. The cardiomediastinal silhouette is normal. Small airspace opacities are seen in the bilateral lower lungs. There is crescentic de nsity below the left hemidiaphragm which likely represents a loop of bowel, however attention on the CTA chest which has already been ordered is recommended to exclude pneumoperitoneum. IMPRESSION: Small airspace opacities in the bilateral lower lungs are nonspecific and may represent findings of acute chest syndrome versus atelectasis. ACT 112: Negative or not required by law. Electronically signed by: Dima Colvin M.D. 10/21/2024 8:48 AM Chest CTA 10/21/24 08:15 CT angio chest PE protocol CLINICAL HISTORY: PE TECHNIQUE: Multidetector row helical CT of the chest was performed with angiographic protocol. Coronal and sagittal reformations were obtained. Coronal and sagittal MIPS were obtained from the axial data set and were submitted for review. Automated dose lowering techniques and/or adjustment according to patient size were utilized for this exam. CT DOSE: 426.22 mGy.cm Comparison: None available at the time of this dictation. FINDINGS: Lungs and pleura: Multifocal airspace opacity is seen with trace right pleural effusion. Heart and pericardium: Heart size is normal. No pericardial effusion. Vessels: No evidence of pulmonary embolism. Mediastinum and andrae: Unremarkable. Chest wall and lower neck: Subcentimeter axillary lymph nodes noted. Abdomen: Unremarkable. Bones: Mottled sclerosis is seen in the bones. IMPRESSION: 1. No evidence of pulmonary embolus. 2. Airspace opacities are seen in the bilateral lower lungs with a focus of right atelectasis, concerning for acute chest syndrome. Trace right pleural effusion is seen. 3. Mottled appearance of the bones may reflect history of sickle cell disease as well. ACT 112: Negative or not required by law. Electronically signed by: Dima Colvin M.D. 10/21/2024 10:19 AM Discharge Instructions Given to Patient (Per Discharging Provider) You have been hospitalized for sickle cell pain crisis. Pain control and fluids have been provided but given fever/tachycardia/shortness of breath we did get blood cultures which are negative at this time. We completed CT chest imaging which did not show clot but does have concerns for acute chest syndrome however given exam and comfortable pain control without drop in oxygen, Dr Aamnda believes we can send you on LEVAQUIN 750mg by mouth daily for 7 days and strict instructions to return to ER if any worsneing pain/respiratory/breathing symptoms to the ER immediately as this can change. We are sending the oxycodone as discussed to use for pain but also recommend following up with Dr Calderon for ongoing management in follow up as well. Continue your hydroxyurea as instructed and can continue ibuprofen/tylenol for nonsevere pain. Please again return to ER if ANY symptoms with breathing or fever/chills/uncontrolled pain or other symptoms concerning for you. It has been a pleasure being a part of the medical team providing for you while you have been in the hospital. Take care! Supervising Physician Co-Signing Physician Notes The patient was not seen by me. The chart was reviewed. Case discussed with MONSE Zhou. Agree with assessment and plan Total Time Total Time Spent Total Time Spent (In Minutes): 45 Coding Level of Care Code 60621 INP/OBS DISCH >30 MIN Diagnoses Sickle cell crisis D57.00 Chest pain R07.9 Pneumonia J18.9 Fever R50.9
[2024-10-21 11:47] VITALS: RESP 16
[2024-10-21 12:23] VITALS: BP 114/75; PULSE 88
[2024-10-21] MEDS: levoFLOXacin 750 MG TAB PO ONE (12:25)
[2024-10-21 12:48] VITALS: O2SAT 96
--- NOTE | 2024-10-22 20:49 | Electrocardiogram Report ---
Test Reason : Blood Pressure : */* mmHG Vent. Rate : 94 BPM Atrial Rate : 94 BPM P-R Int : 158 ms QRS Dur : 76 ms QT Int : 306 ms P-R-T Axes : 68 75 114 degrees QTcB Int : 382 ms Normal sinus rhythm Nonspecific ST abnormality Abnormal ECG When compared with ECG of 20-Oct-2024 01:20, No significant change was found Confirmed by Julian Reyes ([id number]) on 10/22/2024 8:49:25 PM Referred By: Willi Calderon Confirmed By: Julian Reyes
== END 2024-10-21 12:56 | disposition home or self-care (01) | DRG 811 ==
LOC: ED 09:12 → SUATTDRO 13:38 → EDINP 13:38 → 3N 17:32 → 2N 10-20 17:33